=== PATIENT | female | born 1940 | race Caucasian/White ===

== ENCOUNTER 2016-10-23 13:58 | Inpatient (IN) | payer MEDICARE, BC ==
--- NOTE | 2016-10-23 14:14 | EDM.PDOC ---
<Gena Echevarira - Last Filed: 10/23/16 16:19> ED HPI HEADACHE COMPLAINT - General Chief Complaint: Abdominal Pain Stated Complaint: [id number] BAD STOMACH Time Seen by Provider: 10/23/16 14:20 - History of Present Illness INITIAL COMMENTS - FREE TEXT/NARRATIVE: Patient presents to the ER with c/o sob and epigastric pain. She states she had a coughing spell yesterday and her stomach began to hurt. She denies any recent illness, fever or chills, N/V/D. She admits to having irritable bowel syndrome and several other medical problems. Sats on room air are <90%. She denies chest pain at this time. Patient states she had a headache yesterday, but does not today. Symptom Onset Date: 10/22/16 Timing/Duration: Reports: gradual onset Associated Symptoms: Reports: denies other symptoms - Related Data Allergies/ADRs: Allergies Allergy/AdvReac Type Severity Reaction Status Date / Time etodolac [Etodolac] Allergy Hives Verified 10/23/16 14:27 nadolol Allergy Rash Verified 10/23/16 14:27 niacin Allergy Rash Verified 10/23/16 14:27 spironolactone Allergy Fatigue Verified 10/23/16 14:27 Home Meds: Home Meds Fish Oil/[place]-3 Fatty Acids [Fish Oil] 1,000 each PO BID 10/01/13 [History] Glimepiride [Amaryl] 8 mg PO DAILY 10/01/13 [History] Hydrochlorothiazide 25 mg PO DAILY 10/01/13 [History] Hydrocodone/Acetaminophen [[place] 10-325] 1 tab PO Q4H PRN 10/01/13 [History] Isosorbide Mononitrate [Imdur] 60 mg PO DAILY 10/01/13 [History] Lisinopril [Lisinopril] 10 mg PO DAILY 10/01/13 [History] Magnesium Oxide [Mag-Oxide] 250 mg PO BID 10/01/13 [History] Metoprolol Succinate [Toprol XL 100mg] 100 mg PO BID 10/01/13 [History] Multivitamin [Multivitamins] 1 each PO DAILY 10/01/13 [History] Nitroglycerin [Nitrostat] 0.4 mg SL ASDIRECTED PRN 10/01/13 [History] Omeprazole [Prilosec] 20 mg PO BID 10/01/13 [History] Potassium Chloride 20 meq PO BID 10/01/13 [History] Warfarin Sodium [Warfarin Sodium] 5 mg PO DAILY 10/01/13 [History] atorvaSTATin [Lipitor] 40 mg PO BEDTIME 10/01/13 [History] metFORMIN [Glucophage] 500 mg PO BID 10/01/13 [History] Aspirin [Ecotrin] 81 mg PO DAILY 10/23/16 [History] Calcium Carbonate [Calcium] 600 mg PO DAILY 10/23/16 [History] Calcium Carbonate [Tums] 500 mg PO ASDIRECTED PRN 10/23/16 [History] Ergocalciferol (Vitamin D2) [Vitamin D] 400 unit PO DAILY 10/23/16 [History] Loperamide [Imodium] 1 tab PO ASDIRECTED PRN 10/23/16 [History] amLODIPine [Norvasc] 10 mg PO DAILY 10/23/16 [History] ED ROS GENERAL - Review of Systems Review Of Systems: See Below Constitutional: Reports: no symptoms HEENT: Reports: No symptoms Respiratory: Reports: shortness of breath, cough Endocrine: Reports: no symptoms GI/Abdominal: Reports: Abdominal pain : Reports: no symptoms Musculoskeletal: Reports: no symptoms Skin: Reports: no symptoms Neurological: Reports: no symptoms Psychiatric: Reports: No symptoms Hematologic/Lymphatic: Reports: no symptoms Immunologic: Reports: no symptoms - Physical Exam Exam: See Below Exam Limited By: No limitations General Appearance: alert, WD/WN, no apparent distress Eye Exam: bilateral eye: normal inspection Ears: normal external exam, normal canal, hearing grossly normal Nose: normal inspection, normal mucosa, no blood Throat/Mouth: Normal inspection, Normal lips, Normal teeth, Normal gums, Normal oropharynx, Normal voice, No airway compromise Head Exam: atraumatic, normocephalic Neck: normal inspection, supple, non-tender, full range of motion Respiratory/Chest: no accessory muscle use, chest non-tender, decreased breath sounds, crackles Cardiovascular: normal peripheral pulses, regular rate, rhythm, no edema, no gallop, no JVD, no murmur, no rub GI/Abdominal: normal bowel sounds, soft, non tender, no organomegaly, no distention, no abnormal bruit, no mass (Female) Exam: Deferred Rectal (Female) Exam: Deferred Neuro Exam (Abbreviated): alert, oriented, CN II-XII intact, normal cognition, normal gait, normal reflexes, no motor/sensory deficits Back Exam: normal inspection, full range of motion, NT Extremities: normal inspection, normal range of motion, non-tender, no pedal edema, normal capillary refill Psychiatric: normal affect, normal mood Skin Exam: Warm, Dry, Intact, Normal color, No rash EKG INTERPRETATION EKG Date: 10/23/16 Time: 15:21 Rhythm: other (PACED) Course - Vital Signs Last Recorded V/S: Last Vital Signs Temp 36.6 C 10/23/16 14:15 Pulse 65 10/23/16 15:55 Resp 20 10/23/16 14:48 BP 129/41 L 10/23/16 14:48 Pulse Ox 89 L 10/23/16 14:48 - Orders/Labs/Meds Orders: Active Orders 24 hr Category Date Time Status EKG Documentation Completion [RC] STAT Care 10/23/16 14:44 Active Oxygen Therapy, ED [RC] ASDIRECTED Care 10/23/16 14:45 Active RT Aerosol Therapy [RC] ASDIRECTED Care 10/23/16 15:46 Active Chest 2V [CR] Urgent Exams 10/23/16 14:42 Taken CULTURE BLOOD [BC] Stat Lab 10/23/16 16:00 Received CULTURE BLOOD [BC] Stat Lab 10/23/16 16:02 Results INR,PT,PROTHROMBIN TIME [COAG] Stat Lab 10/23/16 14:55 Received TSH ULTRASENSITIVE [CHEM] Stat Lab 10/23/16 14:55 Received Levofloxacin/Dextrose 5%-Water [Levaquin in D5W 500 MG/ Med 10/23/16 15:56 Active 100 ML] 500 mg Premix Bag 1 bag IV ONETIME Blood Culture x2 Reflex Set [OM.PC] Stat Oth 10/23/16 15:46 Ordered Medication Orders Levofloxacin/Dextrose 500 mg/ (Premix) 100 mls @ 100 mls/hr IV ONETIME ONE Stop: 10/23/16 16:55 Last Admin: 10/23/16 16:22 Dose: 100 mls/hr Labs: Laboratory Tests 10/23/16 10/23/16 10/23/16 Range/Units 14:55 14:55 14:55 WBC 10.0 (5.0-10.0) 10^3/uL RBC 3.41 L (4.2-5.4) 10^6/uL Hgb 9.3 L (12.0-16.0) g/dL Hct 29.8 L (37.0-47.0) % MCV 87.4 (80-100) fL MCH 27.3 (27.0-34.0) pg MCHC 31.2 L (33.0-35.0) g/dL Plt Count 217 (150-450) 10^3/uL Neut % (Auto) 91.7 H (42.2-75.2) % Lymph % (Auto) 2.2 L (20.5-50.1) % [place] % (Auto) 5.8 (2-8) % Eos % (Auto) 0.0 L (1.0-3.0) % Baso % (Auto) 0.3 (0.0-1.0) % Sodium 136 (135-145) mmol/L Potassium 3.6 (3.6-5.0) mmol/L Chloride 103 (101-111) mmol/L Carbon Dioxide 23.0 (21.0-31.0) mmol/L Anion Gap 13.6 BUN 13 (7-18) mg/dL Creatinine 0.9 (0.6-1.3) mg/dL Est Cr Clr Drug Dosing 47.36 mL/min Estimated GFR (MDRD) > 60 BUN/Creatinine Ratio 14.44 Glucose 215 H (74-105) mg/dL Calcium 8.6 (8.4-10.2) mg/dl Magnesium 1.6 L (1.8-2.5) mg/dL Total Bilirubin 0.7 (0.2-1.0) mg/dL AST 28 (10-42) IU/L ALT 19 (10-60) IU/L Alkaline Phosphatase 49 (42-121) IU/L Troponin I < 0.02 (0.00-0.02) ng/ml B-Natriuretic Peptide 868 H (0-100) pg/ml Total Protein 7.6 (6.7-8.2) g/dl Albumin 3.4 (3.2-5.5) g/dl Globulin 4.2 Albumin/Globulin Ratio 0.81 Amylase 44 (28-100) U/L Lipase 19 L (22-51) U/L Meds: Medications Generic Name Dose Route Start Last Admin Trade Name Freq PRN Reason Stop Dose Admin Levofloxacin/Dextrose 500 mg/ 100 mls @ 100 mls/hr 10/23/16 15:56 10/23/16 16 :22 Premix IV 10/23/16 16:55 100 mls/hr ONETIME ONE Administration Discontinued Medications Generic Name Dose Route Start Last Admin Trade Name Freq PRN Reason Stop Dose Admin Albuterol/Ipratropium 3 ml 10/23/16 15:46 10/23/16 16:00 Duoneb 3.0-0.5 Mg/3 Ml NEB 10/23/16 15:47 3 ml ONETIME ONE Administration - Radiology Interpretation Free Text/Narrative:: CXR: Atelectasis or pneumonia. See Rad report. Departure - Departure Time of Disposition: 16:14 (Admit to [facility]) Disposition: Admitted As Inpatient 68 Condition: serious Clinical Impression: COPD with acute exacerbation, Hypoxia, Pulmonary nodule Pneumonia Qualifiers: Pneumonia type: due to unspecified organism Laterality: left Lung location: unspecified part of lung Qualified Code(s): J18.9 - Pneumonia, unspecified organism Anemia Qualifiers: Anemia type: unspecified type Qualified Code(s): D64.9 - Anemia, unspecified Forms: ED Department Discharge - My Orders Last 24 Hours: My Active Orders 10/23/16 14:55 INR,PT,PROTHROMBIN TIME [COAG] Stat TSH ULTRASENSITIVE [CHEM] Stat - Assessment/Plan Last 24 Hours: My Active Orders 10/23/16 14:55 INR,PT,PROTHROMBIN TIME [COAG] Stat TSH ULTRASENSITIVE [CHEM] Stat <Cornelio Saldana - Last Filed: 10/23/16 16:32> ED HPI HEADACHE COMPLAINT - General Source of Information: Reports: Patient, Old records, RN, RN notes reviewed History Limitations: Reports: No limitations - History of Present Illness Severity: Reports: moderate Past Medical History HEENT History: Reports: Impaired vision Cardiovascular History: Reports: Afib, Arrhythmia, CAD, Hypertension, Pacemaker , PTCA, Stents Respiratory History: Reports: COPD Endocrine/Metabolic History: Reports: Diabetes, type II Social & Family History - Family History Family Medical History: Noncontributory - Tobacco Use Smoking Status *Q: Former Smoker Tobacco Use Within Last Twelve Months: Cigarettes Years of Tobacco use: 20 Second Hand Smoke Exposure: No - Living Situation & Occupation Living situation: Reports: alone Occupation: employed ED ROS GENERAL - Review of Systems Review Of Systems: ROS reveals no pertinent complaints other than HPI. - Physical Exam Exam: See Below EKG INTERPRETATION Comparison: NA - no prior EKG Course - Vital Signs Last Recorded V/S: Last Vital Signs Temp 36.6 C 10/23/16 14:15 Pulse 65 10/23/16 15:55 Resp 20 10/23/16 14:48 BP 129/41 L 10/23/16 14:48 Pulse Ox 89 L 10/23/16 14:48 - Orders/Labs/Meds Orders: Active Orders 24 hr Category Date Time Status EKG Documentation Completion [RC] STAT Care 10/23/16 14:44 Active Oxygen Therapy, ED [RC] ASDIRECTED Care 10/23/16 14:45 Active RT Aerosol Therapy [RC] ASDIRECTED Care 10/23/16 15:46 Active Chest 2V [CR] Urgent Exams 10/23/16 14:42 Taken CULTURE BLOOD [BC] Stat Lab 10/23/16 16:00 Received CULTURE BLOOD [BC] Stat Lab 10/23/16 16:02 Results INR,PT,PROTHROMBIN TIME [COAG] Stat Lab 10/23/16 14:55 Received TSH ULTRASENSITIVE [CHEM] Stat Lab 10/23/16 14:55 Received Levofloxacin/Dextrose 5%-Water [Levaquin in D5W 500 MG/ Med 10/23/16 15:56 Active 100 ML] 500 mg Premix Bag 1 bag IV ONETIME Blood Culture x2 Reflex Set [OM.PC] Stat Oth 10/23/16 15:46 Ordered Medication Orders Levofloxacin/Dextrose 500 mg/ (Premix) 100 mls @ 100 mls/hr IV ONETIME ONE Stop: 10/23/16 16:55 Last Admin: 10/23/16 16:22 Dose: 100 mls/hr Labs: Laboratory Tests 10/23/16 10/23/16 10/23/16 Range/Units 14:55 14:55 14:55 WBC 10.0 (5.0-10.0) 10^3/uL RBC 3.41 L (4.2-5.4) 10^6/uL Hgb 9.3 L (12.0-16.0) g/dL Hct 29.8 L (37.0-47.0) % MCV 87.4 (80-100) fL MCH 27.3 (27.0-34.0) pg MCHC 31.2 L (33.0-35.0) g/dL Plt Count 217 (150-450) 10^3/uL Neut % (Auto) 91.7 H (42.2-75.2) % Lymph % (Auto) 2.2 L (20.5-50.1) % [place] % (Auto) 5.8 (2-8) % Eos % (Auto) 0.0 L (1.0-3.0) % Baso % (Auto) 0.3 (0.0-1.0) % Sodium 136 (135-145) mmol/L Potassium 3.6 (3.6-5.0) mmol/L Chloride 103 (101-111) mmol/L Carbon Dioxide 23.0 (21.0-31.0) mmol/L Anion Gap 13.6 BUN 13 (7-18) mg/dL Creatinine 0.9 (0.6-1.3) mg/dL Est Cr Clr Drug Dosing 47.36 mL/min Estimated GFR (MDRD) > 60 BUN/Creatinine Ratio 14.44 Glucose 215 H (74-105) mg/dL Calcium 8.6 (8.4-10.2) mg/dl Magnesium 1.6 L (1.8-2.5) mg/dL Total Bilirubin 0.7 (0.2-1.0) mg/dL AST 28 (10-42) IU/L ALT 19 (10-60) IU/L Alkaline Phosphatase 49 (42-121) IU/L Troponin I < 0.02 (0.00-0.02) ng/ml B-Natriuretic Peptide 868 H (0-100) pg/ml Total Protein 7.6 (6.7-8.2) g/dl Albumin 3.4 (3.2-5.5) g/dl Globulin 4.2 Albumin/Globulin Ratio 0.81 Amylase 44 (28-100) U/L Lipase 19 L (22-51) U/L Meds: Medications Generic Name Dose Route Start Last Admin Trade Name Freq PRN Reason Stop Dose Admin Levofloxacin/Dextrose 500 mg/ 100 mls @ 100 mls/hr 10/23/16 15:56 10/23/16 16 :22 Premix IV 10/23/16 16:55 100 mls/hr ONETIME ONE Administration Discontinued Medications Generic Name Dose Route Start Last Admin Trade Name Bebeto PRN Reason Stop Dose Admin Albuterol/Ipratropium 3 ml 10/23/16 15:46 10/23/16 16:00 Duoneb 3.0-0.5 Mg/3 Ml NEB 10/23/16 15:47 3 ml ONETIME ONE Administration - Re-Assessments/Exams Free Text/Narrative Re-Assessment/Exam: 10/23/16 16:17 FOR THIS ENCOUNTER THE PATIENT WAS SEEN IN CONJUNCTION WITH [facility] STUDENT GENA ECHEVARRIA. ALL PATIENT CARE AND/OR PROCEDURE(S), DIAGNOSTIC ORDERS, MEDICATION(S) AND TREATMENT ORDERS, DISPOSITION ORDERS/PLANNING, AND DISCHARGE/FOLLOW UP INSTRUCTIONS WERE UNDER MY DIRECT SUPERVISION. gbd - My Orders Last 24 Hours: My Active Orders 10/23/16 14:55 INR,PT,PROTHROMBIN TIME [COAG] Stat TSH ULTRASENSITIVE [CHEM] Stat - Assessment/Plan Last 24 Hours: My Active Orders 10/23/16 14:55 INR,PT,PROTHROMBIN TIME [COAG] Stat TSH ULTRASENSITIVE [CHEM] Stat
[2016-10-23 15:20] LABS: CHLORIDE,CL 103 mmol/L (101-111); SODIUM,NA 136 mmol/L (135-145)
[2016-10-23] MEDS ORDERED: Albuterol/Ipratropium 3.0-0.5 MG/3 ML Neb Soln NEB ONE (15:46)
[2016-10-23] MEDS ORDERED: Levofloxacin/Dextrose 5%-Water 500 MG in Premix Bag 1 BAG IV ONE (15:56)
[2016-10-23] MEDS ORDERED: Ondansetron 4 MG/2 ML SDV IVPUSH PRN (17:34)
[2016-10-23] MEDS ORDERED: Magnesium Sulfate/Water 2 GM in Premix Bag 1 BAG IV ONE (17:49)
--- NOTE | 2016-10-23 17:52 | PCM.HP ---
H&P History of Present Illness - General Date of Service: 10/23/16 Admit Problem/Dx: Admission Diagnosis/Problem Admission Diagnosis/Problem Pneumonia Source of Information: Patient History Limitations: Reports: No limitations - History of Present Illness Initial Comments - Free Text/Narative: Patient presents to the ER with c/o cough and epigastric pain with coughing. She states she started having coughing spell yesterday. she admits being fatigued and tired since yesterday and she had generalized weakness. She denies any recent illness shortness of breath, chest pain, fever or chills, N/V/D, blood in stool or black stool, urinary sx. She admits to having irritable bowel syndrome and several other medical problems. In ER she Sats on room air are <90% .. Patient states she had a headache yesterday, but does not today. she denies hx of thyrid disease or CHF. last Echo was many years ago according to hear. 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 Her CXR showed infiltrate on left side, possible left side nodule vs nipple. WBC nl but with left shift. BNP 868. Trop 0.02. TSH 0.29. Glucose 215. mag 1.6. Cr 0.9. she was given Duoneb and Levaquin in ER Abdomen Pain Score (Numeric/FACES): 4 - Related Data Allergies/Adverse Reactions: Allergies Allergy/AdvReac Type Severity Reaction Status Date / Time etodolac [Etodolac] Allergy Hives Verified 10/23/16 17:06 nadolol Allergy Rash Verified 10/23/16 17:06 niacin Allergy Rash Verified 10/23/16 17:06 spironolactone Allergy Fatigue Verified 10/23/16 17:06 Home Medications: Home Meds Fish Oil/[place]-3 Fatty Acids [Fish Oil] 1,000 each PO BID 10/01/13 [History] Glimepiride [Amaryl] 8 mg PO DAILY 10/01/13 [History] Hydrochlorothiazide 25 mg PO DAILY 10/01/13 [History] Hydrocodone/Acetaminophen [[place] 10-325] 1 tab PO Q4H PRN 10/01/13 [History] Isosorbide Mononitrate [Imdur] 60 mg PO DAILY 10/01/13 [History] Lisinopril [Lisinopril] 10 mg PO DAILY 10/01/13 [History] Magnesium Oxide [Mag-Oxide] 250 mg PO BID 10/01/13 [History] Metoprolol Succinate [Toprol XL 100mg] 100 mg PO BID 10/01/13 [History] Multivitamin [Multivitamins] 1 each PO DAILY 10/01/13 [History] Nitroglycerin [Nitrostat] 0.4 mg SL ASDIRECTED PRN 10/01/13 [History] Omeprazole [Prilosec] 20 mg PO BID 10/01/13 [History] Potassium Chloride 20 meq PO BID 10/01/13 [History] Warfarin Sodium [Warfarin Sodium] 5 mg PO DAILY 10/01/13 [History] atorvaSTATin [Lipitor] 40 mg PO BEDTIME 10/01/13 [History] metFORMIN [Glucophage] 500 mg PO BID 10/01/13 [History] Aspirin [Ecotrin] 81 mg PO DAILY 10/23/16 [History] Calcium Carbonate [Calcium] 600 mg PO DAILY 10/23/16 [History] Calcium Carbonate [Tums] 500 mg PO ASDIRECTED PRN 10/23/16 [History] Ergocalciferol (Vitamin D2) [Vitamin D] 400 unit PO DAILY 10/23/16 [History] Loperamide [Imodium] 1 tab PO ASDIRECTED PRN 10/23/16 [History] amLODIPine [Norvasc] 10 mg PO DAILY 10/23/16 [History] Past Medical History HEENT History: Reports: Impaired vision Other HEENT History: wears glasses Cardiovascular History: Reports: Afib, Arrhythmia, CAD, Hypertension, Pacemaker , PTCA, Stents Respiratory History: Reports: COPD Gastrointestinal History: Reports: GERD, Irritable bowel syndrome Genitourinary History: Reports: None Musculoskeletal History: Reports: None Neurological History: Reports: None Psychiatric History: Reports: None Endocrine/Metabolic History: Reports: Diabetes, type II Hematologic History: Reports: None Immunologic History: Reports: None Oncologic (Cancer) History: Reports: Bladder Dermatologic History: Reports: None - Infectious Disease History Infectious Disease History: Reports: Chicken pox, Measles - Past Surgical History Cardiovascular Surgical History: Reports: Pacer Social & Family History - Family History Family Medical History: Noncontributory - Tobacco Use Smoking Status *Q: Former Smoker Years of Tobacco use: 20 Packs/Tins Daily: 0.5 Second Hand Smoke Exposure: No - Caffeine Use Caffeine Use: Reports: Coffee - Recreational Drug Use Recreational Drug Use: No - Living Situation & Occupation Living situation: Reports: alone Occupation: employed H&P Review of Systems - Review of Systems: Review Of Systems: See Below General: Denies: decreased appetite HEENT: Reports: no symptoms Neurological: Reports: no symptoms. Denies: seizure, syncope, tremors, trouble speaking, weakness, change in speech, gait disturbance Exam - Exam Exam: See Below - Vital Signs Vital Signs: Last Vital Signs Temp 37.1 C 10/23/16 16:28 Pulse 62 10/23/16 16:28 Resp 18 10/23/16 16:28 BP 103/70 10/23/16 16:28 Pulse Ox 92 L 10/23/16 16:28 Weight: 74.843 kg - Exam General: alert, oriented, cooperative. No: moderate distress, severe distress HEENT: Conjunctiva clear, EACs clear, EOMI, Hearing intact, Mucosa moist & pink , Nares patent, Normal nasal septum, Posterior pharynx clear, Pupils equal, Pupils reactive Neck: supple, trachea midline. No: JVD Lungs: Decreased breath sounds (but fair air exchange), Rhonchi. No: Rales, Rub , Stridor, Wheezing Cardiovascular: regular rate, regular rhythm Abdomen: soft. No: organomegaly, distention, guarding, rigidity, tenderness Back Exam: normal inspection Extremities: normal pulses, edema (trace bilaterally in LE). No: clubbing, cyanosis, calf tenderness Skin: warm, dry, intact Neurological: cranial nerves intact, reflexes equal bilateral Neuro Extensive - Mental Status: alert, oriented x3, normal mood/affect, normal cognition, memory intact Neuro Extensive - Motor, Sensory, Reflexes: CN II-XII intact, normal gait - Patient Data Result Diagrams: 10/23/16 14:55 10/23/16 14:55 *Q Meaningful Use (ADM) - VTE *Q VTE Criteria *Q: - Stroke *Q Stroke Criteria *Q: - AMI *Q AMI Criteria *Q: - Problem List (1) Hypomagnesemia SNOMED Code(s): 337573969 ICD Code: E83.42 - HYPOMAGNESEMIA Status: Acute Current Visit: Yes (2) Low TSH level SNOMED Code(s): 715894415 ICD Code: R94.6 - ABNORMAL RESULTS OF THYROID FUNCTION STUDIES Status: Acute Current Visit: Yes (3) Congestive heart failure SNOMED Code(s): 81193570 ICD Code: I50.9 - HEART FAILURE, UNSPECIFIED Status: Acute Current Visit : Yes (4) Anemia SNOMED Code(s): 196365621 ICD Code: D64.9 - ANEMIA, UNSPECIFIED Status: Acute Current Visit: Yes Qualifiers: Anemia type: unspecified type Qualified Code(s): D64.9 - Anemia, unspecified (5) COPD with acute exacerbation SNOMED Code(s): 912481687 ICD Code: J44.1 - CHRONIC OBSTRUCTIVE PULMONARY DISEASE W (ACUTE) EXACERBATION Status: Acute Current Visit: Yes (6) Hypoxia SNOMED Code(s): 689214787, 042347093 ICD Code: R09.02 - HYPOXEMIA Status: Acute Current Visit: Yes (7) Pneumonia SNOMED Code(s): 686037357 ICD Code: J18.9 - PNEUMONIA, UNSPECIFIED ORGANISM Status: Acute Current Visit: Yes Qualifiers: Pneumonia type: due to unspecified organism Laterality: left Lung location: unspecified part of lung Qualified Code(s): J18.9 - Pneumonia, unspecified organism (8) Pulmonary nodule SNOMED Code(s): 838921359 ICD Code: R91.1 - SOLITARY PULMONARY NODULE Status: Acute Current Visit: Yes Problem List Initiated/Reviewed/Updated: Yes Orders Last 24hrs: Active Orders 24 hr Category Date Time Status Patient Status [ADT] Routine ADT 10/23/16 17:34 Active Bedrest Bathroom Privileges [RC] ASDIRECTED Care 10/23/16 17:34 Active Diabetes Education [RC] Click To Edit Care 10/23/16 17:38 Active Height and Weight [RC] DAILY Care 10/23/16 17:34 Active Intake and Output [RC] Q6H Care 10/23/16 17:35 Active Oxygen Therapy [RC] PRN Care 10/23/16 17:34 Active RT Aerosol Therapy [RC] ASDIRECTED Care 10/23/16 17:40 Active VTE/DVT Education [RC] PER UNIT ROUTINE Care 10/23/16 17:34 Active Vital Signs [RC] Q4H Care 10/23/16 17:34 Active CXR [Chest 2V] [CR] Routine Exams 10/25/16 06:00 Ordered Echo Comp wo Cont [US] Routine Exams 10/25/16 06:00 Ordered BASIC METABOLIC PANEL,BMP [CHEM] AM Lab 10/24/16 05:11 Ordered CBC WITH AUTO DIFF [HEME] AM Lab 10/24/16 05:11 Ordered CULTURE SPUTUM + SMEAR [RM] Stat Lab 10/23/16 17:34 Uncollected FREE T3 [REF] Routine Lab 10/23/16 14:55 Received FREE T4 [REF] Routine Lab 10/23/16 14:55 Received INR,PT,PROTHROMBIN TIME [COAG] Timed Lab 10/25/16 05:00 Ordered MAGNESIUM [CHEM] AM Lab 10/24/16 05:11 Ordered TROPONIN I [CHEM] AM Lab 10/24/16 05:11 Ordered Acetaminophen/HYDROcodone [[place] 325-10 MG] Med 10/23/16 17:34 Ordered 1 tab PO Q4H PRN Albuterol [Proventil Neb Soln] Med 10/23/16 18:00 Ordered 2.5 mg NEB Q6HRRT Azithromycin [Zithromax] 500 mg Med 10/23/16 18:30 Active Sodium Chloride 0.9% [Normal Saline] 250 ml IV Q24H Ondansetron [Zofran] Med 10/23/16 17:34 Ordered 4 mg IVPUSH Q6H PRN Zolpidem [Ambien] Med 10/23/16 17:34 Ordered 5 mg PO BEDTIME PRN cefTRIAXone [Rocephin] 1 gm Med 10/23/16 17:30 Active Sodium Chloride 0.9% [Normal Saline] 100 ml IV Q24H Glucose Management Sub Q Reflex [OM.PC] Click To Edit Oth 10/23/16 17:34 Ordered Resuscitation Status Routine Resus Stat 10/23/16 17:34 Ordered Medication Orders Acetaminophen/Hydrocodone Bitart ([place] 325-10 Mg) 1 tab PO Q4H PRN PRN Reason: Pain (moderate 4-6) Albuterol (Proventil Neb Soln) 2.5 mg NEB Q6HRRT TRISH Azithromycin 500 mg/ Sodium (Chloride) 250 mls @ 250 mls/hr IV Q24H TRISH Ceftriaxone Sodium 1 gm/ (Sodium Chloride) 100 mls @ 200 mls/hr IV Q24H TRISH Ondansetron HCl (Zofran) 4 mg IVPUSH Q6H PRN PRN Reason: Nausea/Vomiting Zolpidem Tartrate (Ambien) 5 mg PO BEDTIME PRN PRN Reason: Sleep Assessment/Plan Comment:: Community acquired pneumonia Rocephin and Azithromycin Flutter valve Reactive airway disease Possible COPD with exacerbation She used to be on amiodarone in the past Abx as above Albuterol neb q6h I advised her to follow up with plan checker as soon as possible after she gets out of hospital Hypoxia Sat is dropping to 83% possible due to PNA vs COPD vs CHF O2 by nasal cannula to keep sat > 94 while awake and >88 while asleep Give Lasix 60 mg now CHF, unspecified Give lasix 60 mg once now then 20 mg after 8 horus Give oral K-dur Continue home cardiovascular medications Echo cardiogram Atrial Fibrillation/Atrial flutter patient states that she has history of paroxysmal a-fib/flutter Continue with Toprol Telemetry Warfarin Anemia, unknow reason Will do iron study If still hypoxic then will consider blood transfer Left lung lesion seen on x-ray Could be nodule or nipple Repeat CXR on Tuesday if still there then consider doing CT of chest Hx of CAD status post stent not symptomatic continue with aspirin Low TSH without history of thyroid disease Check FT3, FT4 Diabetes mellitus without complications Last Hgb A1c was 7.2 on 08/19/16 Resume oral hypoglycemic drugs SSI Hypomagnesemia replace by IV and orally Recheck in am Hx of GERD continue with omeprazole No need for furtehr DVT prophylaxis as she is on warfarin and INR is therapeutic She wants to be DNR for code status
[2016-10-23] MEDS ORDERED: Furosemide 40 MG/4 ML VIAL IVPUSH ONE (18:05)
[2016-10-23] MEDS ORDERED: Nitroglycerin 0.4 MG Tab.SL SL PRN (18:06)
[2016-10-23] MEDS ORDERED: Acetaminophen/HYDROcodone 325-10 MG Tab PO PRN (18:06)
[2016-10-23] MEDS ORDERED: Loperamide 2 MG Cap PO PRN (18:06)
[2016-10-23] MEDS ORDERED: Potassium Chloride 10 MEQ Tab.ER PO ONE (18:10)
[2016-10-23] MEDS ORDERED: Calcium Carbonate 500 MG Tab.Chew PO PRN (18:31)
[2016-10-23] MEDS: Omeprazole 20 MG Cap.CR PO SCH (18:42)
[2016-10-23] MEDS: metFORMIN 500 MG Tab PO SCH (18:42)
[2016-10-23] MEDS: Sodium Chloride 0.9% 10 ML Syringe FLUSH PRN (18:46)
[2016-10-23] MEDS: Acetaminophen/HYDROcodone 325-10 MG Tab PO PRN (19:14)
[2016-10-23] MEDS ORDERED: Insulin Aspart 100 Units/ML 3 ML Pen SUBCUT SCH (21:00)
[2016-10-23] MEDS: Zolpidem 5 MG Tab PO PRN (21:50)
[2016-10-23] MEDS: Potassium Chloride 10 MEQ Tab.ER PO SCH (21:50)
[2016-10-23] MEDS: atorvaSTATin 20 MG Tab PO SCH (21:51)
[2016-10-23] MEDS: Metoprolol Succinate 50 MG Tab.ER PO SCH (21:51)
[2016-10-23] MEDS: cefTRIAXone 1 GM in Sodium Chloride 0.9% 100 ML IV SCH (21:54)
[2016-10-23] MEDS: Insulin Aspart 100 Units/ML 3 ML Pen SUBCUT SCH (22:28)
[2016-10-23] MEDS: Azithromycin 500 MG in Sodium Chloride 0.9% 250 ML IV SCH (22:38)
[2016-10-23] MEDS: Albuterol 0.083% 2.5 MG/3 ML Neb Soln NEB SCH (23:19)
[2016-10-24] MEDS: Acetaminophen/HYDROcodone 325-10 MG Tab PO PRN ×2 (00:03→05:11)
[2016-10-24] MEDS: Albuterol 0.083% 2.5 MG/3 ML Neb Soln NEB SCH ×4 (01:47→17:55)
[2016-10-24] MEDS ORDERED: Furosemide 20 MG/2 ML VIAL IVPUSH ONE (02:00)
[2016-10-24] MEDS: Omeprazole 20 MG Cap.CR PO SCH (05:14)
[2016-10-24] MEDS ORDERED: Potassium Chloride 10 MEQ Tab.ER PO ONE (07:13)
[2016-10-24] MEDS: Insulin Aspart 100 Units/ML 3 ML Pen SUBCUT SCH ×4 (07:34→21:56)
[2016-10-24] MEDS: metFORMIN 500 MG Tab PO SCH ×2 (08:00→17:33)
[2016-10-24] MEDS: Potassium Chloride 10 MEQ Tab.ER PO SCH ×2 (08:01→17:33)
[2016-10-24] MEDS: Hydrochlorothiazide 25 MG Tab PO SCH (08:45)
[2016-10-24] MEDS: Aspirin 81 MG Tab.EC PO SCH (08:45)
[2016-10-24] MEDS: Glimepiride 2 MG Tab PO SCH (08:46)
[2016-10-24] MEDS: Calcium Carbonate/Vitamin D3 1250 MG-200 Unit Tab PO SCH (08:46)
[2016-10-24] MEDS: Lisinopril 10 MG Tab PO SCH (08:47)
[2016-10-24] MEDS: Isosorbide Mononitrate 60 MG Tab.ER PO SCH (08:47)
[2016-10-24] MEDS: amLODIPine 5 MG Tab PO SCH (08:47)
[2016-10-24] MEDS: Sodium Chloride 0.9% 10 ML Syringe FLUSH PRN (08:48)
[2016-10-24] MEDS: Metoprolol Succinate 50 MG Tab.ER PO SCH ×2 (08:48→22:07)
[2016-10-24] MEDS: Multivitamins,Therapeutic Tab PO SCH (09:03)
[2016-10-24] MEDS: Cholecalciferol (Vitamin D3) 400 Unit Tab PO SCH (09:03)
--- NOTE | 2016-10-24 10:39 | PCM.PN ---
- General Info Date of Service: 10/24/16 Admission Dx/Problem (Free Text): Admission Diagnosis/Problem Admission Diagnosis/Problem Pneumonia Subjective Update: Patient states that she is feeling better today. she is still coughing but she states that she is not as weak and wobbly as she was yesterday. she denies fever , chills, nausea, vomiting, chest pain, shortness of breath, palpitation, focal weakness - Patient Data Vitals - most recent: Last Vital Signs Temp 37.7 C 10/24/16 07:49 Pulse 63 10/24/16 08:48 Resp 20 10/24/16 07:49 BP 120/52 L 10/24/16 08:48 Pulse Ox 93 L 10/24/16 07:49 Weight - most recent: 72.121 kg I&O - last 24 hours: Intake & Output 10/23/16 10/24/16 10/24/16 22:59 06:59 14:59 Intake Total 388 434 100 Output Total 650 1700 Balance 388 -216 -1600 Lab Results last 24 hrs: Laboratory Results - last 24 hr 10/23/16 10/24/16 10/24/16 Range/Units 20:57 05:40 05:40 WBC 4.9 L (5.0-10.0) 10^3/uL RBC 3.30 L (4.2-5.4) 10^6/uL Hgb 8.9 L (12.0-16.0) g/dL Hct 28.8 L (37.0-47.0) % MCV 87.3 (80-100) fL MCH 27.0 (27.0-34.0) pg MCHC 30.9 L (33.0-35.0) g/dL Plt Count 183 (150-450) 10^3/uL Neut % (Auto) 79.3 H (42.2-75.2) % Lymph % (Auto) 8.4 L (20.5-50.1) % [place] % (Auto) 12.1 H (2-8) % Eos % (Auto) 0.0 L (1.0-3.0) % Baso % (Auto) 0.2 (0.0-1.0) % Sodium 139 (135-145) mmol/L Potassium 2.9 L (3.6-5.0) mmol/L Chloride 102 (101-111) mmol/L Carbon Dioxide 27.0 (21.0-31.0) mmol/L Anion Gap 12.9 BUN 16 (7-18) mg/dL Creatinine 1.0 (0.6-1.3) mg/dL Est Cr Clr Drug Dosing 42.62 mL/min Estimated GFR (MDRD) 54 Glucose 64 L (74-105) mg/dL POC Glucose 84 (83-110) mg/dl Calcium 8.4 (8.4-10.2) mg/dl Magnesium 2.1 (1.8-2.5) mg/dL Troponin I 0.04 H* (0.00-0.02) ng/ml B-Natriuretic Peptide (0-100) pg/ml 10/24/16 10/24/16 Range/Units 05:40 07:30 WBC (5.0-10.0) 10^3/uL RBC (4.2-5.4) 10^6/uL Hgb (12.0-16.0) g/dL Hct (37.0-47.0) % MCV (80-100) fL MCH (27.0-34.0) pg MCHC (33.0-35.0) g/dL Plt Count (150-450) 10^3/uL Neut % (Auto) (42.2-75.2) % Lymph % (Auto) (20.5-50.1) % [place] % (Auto) (2-8) % Eos % (Auto) (1.0-3.0) % Baso % (Auto) (0.0-1.0) % Sodium (135-145) mmol/L Potassium (3.6-5.0) mmol/L Chloride (101-111) mmol/L Carbon Dioxide (21.0-31.0) mmol/L Anion Gap BUN (7-18) mg/dL Creatinine (0.6-1.3) mg/dL Est Cr Clr Drug Dosing mL/min Estimated GFR (MDRD) Glucose (74-105) mg/dL POC Glucose 99 (83-110) mg/dl Calcium (8.4-10.2) mg/dl Magnesium (1.8-2.5) mg/dL Troponin I (0.00-0.02) ng/ml B-Natriuretic Peptide 822 H (0-100) pg/ml Med Orders - Current: Current Medications Acetaminophen/Hydrocodone Bitart ([place] 325-10 Mg) 1 tab PO Q4H PRN PRN Reason: Pain (moderate 4-6) Last Admin: 10/24/16 05:11 Dose: 1 tab Albuterol (Proventil Neb Soln) 2.5 mg NEB Q6HRRT [facility] Last Admin: 10/24/16 07:38 Dose: 2.5 mg Amlodipine Besylate (Norvasc) 10 mg PO DAILY [facility] Last Admin: 10/24/16 08:47 Dose: 10 mg Aspirin (Halfprin) 81 mg PO DAILY [facility] Last Admin: 10/24/16 08:45 Dose: 81 mg Atorvastatin Calcium (Lipitor) 40 mg PO BEDTIME [facility] Last Admin: 10/23/16 21:51 Dose: 40 mg Calcium Carbonate (Calcium Carbonate/Vitamin D 1250 Mg-200 Unit) 1 tab PO DAILY [facility] Last Admin: 10/24/16 08:46 Dose: 1 tab Calcium Carbonate/Glycine (Tums) 500 mg PO ASDIRECTED PRN PRN Reason: Abdominal Pain Cholecalciferol (Vitamin D3) 400 units PO DAILY [facility] Last Admin: 10/24/16 09:03 Dose: 400 units Glimepiride (Amaryl) 8 mg PO DAILY [facility] Last Admin: 10/24/16 08:46 Dose: 8 mg Hydrochlorothiazide (Hydrochlorothiazide) 25 mg PO DAILY [facility] Last Admin: 10/24/16 08:45 Dose: 25 mg Azithromycin 500 mg/ Sodium (Chloride) 250 mls @ 250 mls/hr IV Q24H [facility] Last Admin: 10/23/16 22:38 Dose: 250 mls/hr Ceftriaxone Sodium 1 gm/ (Sodium Chloride) 100 mls @ 200 mls/hr IV Q24H [facility] Last Admin: 10/23/16 21:54 Dose: 200 mls/hr Insulin Aspart (Novolog) 0 unit SUBCUT QIDACANDBED [facility] PRN Reason: Protocol Last Admin: 10/24/16 07:34 Dose: Not Given Isosorbide Mononitrate (Imdur) 60 mg PO DAILY [facility] Last Admin: 10/24/16 08:47 Dose: 60 mg Lisinopril (Prinivil) 10 mg PO DAILY [facility] Last Admin: 10/24/16 08:47 Dose: 10 mg Loperamide HCl (Imodium) 2 mg PO ASDIRECTED PRN PRN Reason: Diarrhea Magnesium Oxide (Magnesium Oxide) 250 mg PO BID [facility] Last Admin: 10/24/16 08:46 Dose: 250 mg Metformin HCl (Glucophage) 500 mg PO BIDMEALS [facility] Last Admin: 10/24/16 08:00 Dose: 500 mg Metoprolol Succinate (Toprol Xl) 100 mg PO BID [facility] Last Admin: 10/24/16 08:48 Dose: 100 mg Multivitamins (Thera) 1 each PO DAILY [facility] Last Admin: 10/24/16 09:03 Dose: 1 each Nitroglycerin (Nitrostat) 0.4 mg SL ASDIRECTED PRN PRN Reason: Chest Pain Non-Formulary Medication (Fish Oil/Sedan-3 Fatty Acids [Fish Oil]) 1,000 each PO BID [facility] Non-Formulary Medication (Melatonin [Melatonin]) 3 mg PO BEDTIME [facility] Omeprazole (Omeprazole) 20 mg PO BIDAC [facility] Last Admin: 10/24/16 05:14 Dose: 20 mg Ondansetron HCl (Zofran) 4 mg IVPUSH Q6H PRN PRN Reason: Nausea/Vomiting Potassium Chloride (Klor-Con 10) 20 meq PO BIDMEALS [facility] Last Admin: 10/24/16 08:01 Dose: 20 meq Sodium Chloride (Saline Flush) 10 ml FLUSH ASDIRECTED PRN PRN Reason: Keep Vein Open Last Admin: 10/24/16 08:48 Dose: 10 ml Warfarin Sodium (Coumadin) 5 mg PO MoFr@1400 [facility] Warfarin Sodium (Coumadin) 2.5 mg PO SuTuWeThSa@1400 [facility] Zolpidem Tartrate (Ambien) 5 mg PO BEDTIME PRN PRN Reason: Sleep Last Admin: 10/23/16 21:50 Dose: 5 mg Discontinued Medications Acetaminophen/Hydrocodone Bitart ([place] 325-10 Mg) 1 tab PO Q4H PRN PRN Reason: Pain Albuterol/Ipratropium (Duoneb 3.0-0.5 Mg/3 Ml) 3 ml NEB ONETIME ONE Stop: 10/23/16 15:47 Last Admin: 10/23/16 16:00 Dose: 3 ml Furosemide (Lasix) 60 mg IVPUSH NOW ONE Stop: 10/23/16 18:06 Last Admin: 10/23/16 18:44 Dose: 60 mg Furosemide (Lasix) 20 mg IVPUSH ONETIME ONE Stop: 10/24/16 02:01 Last Admin: 10/24/16 01:48 Dose: 20 mg Levofloxacin/Dextrose 500 mg/ (Premix) 100 mls @ 100 mls/hr IV ONETIME ONE Stop: 10/23/16 16:55 Last Infusion: 10/23/16 17:35 Dose: Infused Magnesium Sulfate 2 gm/ Premix 50 mls @ 25 mls/hr IV ONETIME ONE Stop: 10/23/16 19:48 Last Admin: 10/23/16 18:53 Dose: 25 mls/hr Potassium Chloride (Klor-Con 10) 40 meq PO ONETIME ONE Stop: 10/23/16 18:11 Last Admin: 10/23/16 18:42 Dose: 40 meq Potassium Chloride (Klor-Con 10) 40 meq PO ONETIME ONE Stop: 10/24/16 07:14 Last Admin: 10/24/16 08:00 Dose: 40 meq - Exam General: alert, oriented, cooperative. No: no acute distress HEENT: Pupils equal, Pupils reactive, EOMI Neck: supple, trachea midline, no JVD Lungs: Clear to auscultation, Normal respiratory effort. No: Crackles, Rales, Rhonchi, Stridor, Wheezing Cardiovascular: irregular rhythm Back Exam: normal inspection Extremities: edema (trace edema in LE rob, improved from yesterday ) Skin: warm, dry, intact Neurological: no new focal deficit, normal gait, normal speech, strength equal bilateral, sensation intact, cranial nerves intact Psy/Mental Status: alert, normal affect, normal mood - Problem List & Annotations (1) Hypomagnesemia SNOMED Code(s): 983967715 Code(s): E83.42 - HYPOMAGNESEMIA Status: Acute Current Visit: Yes (2) Low TSH level SNOMED Code(s): 137809489 Code(s): R94.6 - ABNORMAL RESULTS OF THYROID FUNCTION STUDIES Status: Acute Current Visit: Yes (3) Congestive heart failure SNOMED Code(s): 42657946 Code(s): I50.9 - HEART FAILURE, UNSPECIFIED Status: Acute Current Visit: Yes (4) Anemia SNOMED Code(s): 055148431 Code(s): D64.9 - ANEMIA, UNSPECIFIED Status: Acute Current Visit: Yes Qualifiers: Anemia type: unspecified type Qualified Code(s): D64.9 - Anemia, unspecified (5) COPD with acute exacerbation SNOMED Code(s): 258154029 Code(s): J44.1 - CHRONIC OBSTRUCTIVE PULMONARY DISEASE W (ACUTE) EXACERBATION Status: Acute Current Visit: Yes (6) Hypoxia SNOMED Code(s): 244077818, 158497846 Code(s): R09.02 - HYPOXEMIA Status: Acute Current Visit: Yes (7) Pneumonia SNOMED Code(s): 564928106 Code(s): J18.9 - PNEUMONIA, UNSPECIFIED ORGANISM Status: Acute Current Visit: Yes Qualifiers: Pneumonia type: due to unspecified organism Laterality: left Lung location: unspecified part of lung Qualified Code(s): J18.9 - Pneumonia, unspecified organism (8) Pulmonary nodule SNOMED Code(s): 262013783 Code(s): R91.1 - SOLITARY PULMONARY NODULE Status: Acute Current Visit: Yes - Problem List Review Problem List Initiated/Reviewed/Updated: Yes - My Orders Last 24 Hours: My Active Orders 10/23/16 14:55 FREE T3 [REF] Routine FREE T4 [REF] Routine GLYCOSYLATED HEMOGLOBIN (HA1C) [REF] Routine 10/23/16 17:30 cefTRIAXone [Rocephin] 1 gm Sodium Chloride 0.9% [Normal Saline] 100 ml IV Q24H 10/23/16 17:34 Patient Status [ADT] Routine Bedrest Bathroom Privileges [RC] ASDIRECTED Height and Weight [RC] 06 Oxygen Therapy [RC] PRN VTE/DVT Education [RC] PER UNIT ROUTINE Vital Signs [RC] Q4H CULTURE SPUTUM + SMEAR [RM] Stat Acetaminophen/HYDROcodone [[place] 325-10 MG] 1 tab PO Q4H PRN Ondansetron [Zofran] 4 mg IVPUSH Q6H PRN Zolpidem [Ambien] 5 mg PO BEDTIME PRN Glucose Management Sub Q Reflex [OM.PC] Click To Edit Resuscitation Status Routine 10/23/16 17:35 Intake and Output [RC] Q6H 10/23/16 17:38 Diabetes Education [RC] Click To Edit 10/23/16 17:40 RT Aerosol Therapy [RC] ASDIRECTED 10/23/16 17:47 Blood Glucose Check, Bedside [RC] QIDACANDBED 10/23/16 18:00 Albuterol [Proventil Neb Soln] 2.5 mg NEB Q6HRRT 10/23/16 18:01 Flutter Valve Therapy [RT Chest Physiotherapy] [RC] ASDIRECTED 10/23/16 18:06 Loperamide [Imodium] 2 mg PO ASDIRECTED PRN Nitroglycerin [Nitrostat] 0.4 mg SL ASDIRECTED PRN 10/23/16 18:23 Telemetry Monitoring [Cardiac Monitoring] [RC] . DIRECTED 10/23/16 18:25 Sodium Chloride 0.9% [Saline Flush] 10 ml FLUSH ASDIRECTED PRN 10/23/16 18:30 Azithromycin [Zithromax] 500 mg Sodium Chloride 0.9% [Normal Saline] 250 ml IV Q24H Omeprazole 20 mg PO BIDAC metFORMIN [Glucophage] 500 mg PO BIDMEALS 10/23/16 18:31 IRON PANEL IRON/TRANSFERR/FERR [REF] Routine Calcium Carbonate [Tums] 500 mg PO ASDIRECTED PRN 10/23/16 21:00 Fish Oil/Sedan-3 Fatty Acids [Fish Oil] 1,000 each PO BID Insulin Aspart [NovoLOG] See Protocol SUBCUT QIDACANDBED Magnesium Oxide 250 mg PO BID Melatonin [Melatonin] 3 mg PO BEDTIME Metoprolol Succinate [Toprol XL] 100 mg PO BID Potassium Chloride [Klor-Con 10] 20 meq PO BIDMEALS atorvaSTATin [Lipitor] 40 mg PO BEDTIME 10/24/16 08:50 OCCULT BLOOD DIAGNOSTIC [OP] Routine 10/24/16 09:00 Aspirin [Halfprin] 81 mg PO DAILY Calcium Carbonate/Vitamin D3 [Calcium Carbonate/Vitamin D 1250 MG-200 Unit] 1 tab PO DAILY Cholecalciferol (Vitamin D3) [Vitamin D3] 400 units PO DAILY Glimepiride [Amaryl] 8 mg PO DAILY Hydrochlorothiazide 25 mg PO DAILY Isosorbide Mononitrate [Imdur] 60 mg PO DAILY Lisinopril [Prinivil] 10 mg PO DAILY Multivitamins,Therapeutic [Thera] 1 each PO DAILY amLODIPine [Norvasc] 10 mg PO DAILY 10/24/16 13:00 TROPONIN I [CHEM] Timed 10/24/16 14:00 Warfarin [Coumadin] 2.5 mg PO SuTuWeThSa@1400 10/24/16 Breakfast Consistent Carbohydrate Diet [DIET] 10/25/16 05:00 INR,PT,PROTHROMBIN TIME [COAG] Timed 10/25/16 05:11 BASIC METABOLIC PANEL,BMP [CHEM] AM CBC WITH AUTO DIFF [HEME] AM 10/25/16 06:00 CXR [Chest 2V] [CR] Routine Echo Comp wo Cont [US] Routine 10/25/16 14:00 Warfarin [Coumadin] 5 mg PO MoFr@1400 - Plan Plan:: Community acquired pneumonia Continue Rocephin and Azithromycin Continue Flutter valve Repeat CXR tomorrow Reactive airway disease Possible COPD with exacerbation She used to be on amiodarone in the past Abx as above Albuterol neb q6h I advised her to follow up with siebel consultant as soon as possible after she gets out of hospital Added Mucomyst and cepacol today Hypoxia Sat is dropping to 83% on admission, now responding to nasal oxygen possible due to PNA vs COPD vs CHF O2 by nasal cannula to keep sat > 94 while awake and >88 while asleep Received lasix Elevated Troponin On admission <0.02, this am 0.04 Most likey due to PNA on the left side Will recheck later this afternoon, and if continue to go up will call visitor information assistant CHF, unspecified Received Give Lasix 60 mg IV once upon admission, then 20 mg IV after 8 hours. she gave 2500 of urine out out up to this morning Give oral K-dur Continue home cardiovascular medications Echocardiogram tomorrow Fluid restriction of 1600/24 hrs Continue lasix 20 mg PO daily Atrial Fibrillation/Atrial flutter patient states that she has history of paroxysmal a-fib/flutter Rate is controlled Continue with Toprol Telemetry Warfarin Anemia, unknow reason It is trending downward. 9.3 on admission, today is 8.9 Will do iron study If still hypoxic then will consider blood transfer She admits having dark stool intermittently Last colonoscopy was 10 years ago and was normal She admits intermittent epigastric pain for the last 1 mot=nth I discussed with her that she needs to have colonoscopy and EGD as soon as possible after being discharged and possible during this admission if Hgb continue to drop Will do hemoccult Will change omeprazole to protonix 80 mg IV today, then 40 mg IV daily Will continue the warfarin and Aspirin due to her significant cardiovascular disease but discontinue them if acute bleeding Hupokalemia, Repalce orally Left lung lesion seen on x-ray Could be nodule or nipple Repeat CXR on Tuesday if still there then consider doing CT of chest Hx of CAD status post stent not symptomatic continue with aspirin Low TSH without history of thyroid disease Check FT3, FT4 Diabetes mellitus without complications Last Hgb A1c was 7.2 on 08/19/16 Resume oral hypoglycemic drugs SSI Hypomagnesemia Resolved replaced by IV and orally Hx of GERD Will change omeprazole to protonix 80 mg IV today, then 40 mg IV daily No need for furtehr DVT prophylaxis as she is on warfarin and INR is therapeutic She wants to be DNR for code status
[2016-10-24] MEDS ORDERED: Benzocaine/Cetylpyridinium/Menthol Lozenge MUCMEM PRN (10:44)
[2016-10-24] MEDS ORDERED: Pantoprazole 40 MG Vial IVPUSH ONE (10:58)
[2016-10-24] MEDS ORDERED: Acetaminophen 325 MG Tab PO PRN (11:32)
[2016-10-24] MEDS ORDERED: guaiFENesin 100 MG/5 ML Soln 5 ML UD Cup PO PRN (11:51)
[2016-10-24] MEDS: Furosemide 20 MG Tab PO SCH (12:19)
[2016-10-24] MEDS: Acetylcysteine 20% 200 MG/ML 30 ML Nebulizer Soln SDV INH SCH ×2 (13:23→17:59)
[2016-10-24] MEDS ORDERED: Warfarin 2.5 MG Tab PO SCH (14:00)
[2016-10-24] MEDS: cefTRIAXone 1 GM in Sodium Chloride 0.9% 100 ML IV SCH (17:32)
[2016-10-24] MEDS: Azithromycin 500 MG in Sodium Chloride 0.9% 250 ML IV SCH (17:55)
[2016-10-24] MEDS: atorvaSTATin 20 MG Tab PO SCH (22:01)
[2016-10-24] MEDS: Zolpidem 5 MG Tab PO PRN (22:02)
[2016-10-25] MEDS: Albuterol 0.083% 2.5 MG/3 ML Neb Soln NEB SCH ×2 (01:05→07:27)
[2016-10-25 06:46] LABS: CHLORIDE,CL 107 mmol/L (101-111); SODIUM,NA 140 mmol/L (135-145)
[2016-10-25] MEDS: OMEGA PO SCH ×3 (07:14→21:02)
[2016-10-25] MEDS: FISH OIL PO SCH ×3 (07:14→21:02)
[2016-10-25] MEDS: MELATONIN 3 MG PO SCH ×2 (07:14→21:03)
[2016-10-25] MEDS: Acetylcysteine 20% 200 MG/ML 30 ML Nebulizer Soln SDV INH SCH (07:27)
[2016-10-25] MEDS: Insulin Aspart 100 Units/ML 3 ML Pen SUBCUT SCH ×4 (08:41→21:08)
[2016-10-25] MEDS ORDERED: Pantoprazole 40 MG Vial IVPUSH SCH (09:00)
[2016-10-25] MEDS: metFORMIN 500 MG Tab PO SCH (09:12)
[2016-10-25] MEDS: Potassium Chloride 10 MEQ Tab.ER PO SCH ×2 (09:13→17:51)
[2016-10-25] MEDS: Glimepiride 2 MG Tab PO SCH (09:13)
[2016-10-25] MEDS: Aspirin 81 MG Tab.EC PO SCH (09:14)
[2016-10-25] MEDS: Calcium Carbonate/Vitamin D3 1250 MG-200 Unit Tab PO SCH (09:14)
[2016-10-25] MEDS: Isosorbide Mononitrate 60 MG Tab.ER PO SCH (09:15)
[2016-10-25] MEDS: Furosemide 20 MG Tab PO SCH (09:15)
[2016-10-25] MEDS: Hydrochlorothiazide 25 MG Tab PO SCH (09:15)
[2016-10-25] MEDS: Lisinopril 10 MG Tab PO SCH (09:16)
[2016-10-25] MEDS: Metoprolol Succinate 50 MG Tab.ER PO SCH ×2 (09:17→21:10)
[2016-10-25] MEDS: Multivitamins,Therapeutic Tab PO SCH (09:17)
[2016-10-25] MEDS: amLODIPine 5 MG Tab PO SCH (09:19)
[2016-10-25] MEDS: Cholecalciferol (Vitamin D3) 400 Unit Tab PO SCH (09:19)
[2016-10-25] MEDS: Sodium Chloride 0.9% 10 ML Syringe FLUSH PRN ×3 (09:53→18:46)
--- NOTE | 2016-10-25 10:51 | CR ---
CLINICAL HISTORY: 76-year-old female reported to have "opacity" right midlung and perihilar left margy g on 23 October 2014. INTERPRETATION: Improvement. Definite interval clearing left perihilar pneumonic like consolidation of 23 October 2016. Persistent right infrahilar, middle lobe, atelectasis or infiltrate. Borderline cardiomegaly and cardiac pacemaker but no cephalization of vascular flow, signs of alveol ar edema or dependent effusion.
--- NOTE | 2016-10-25 12:12 | PCM.PN ---
- General Info Date of Service: 10/25/16 Admission Dx/Problem (Free Text): Admission Diagnosis/Problem Admission Diagnosis/Problem Pneumonia Subjective Update: Patient states that she is feeling better today. only has minimal cough, shortness of breath has significantly improved. feels stronger. she denies fever, chills, nausea, vomiting, chest pain, shortness of breath, palpitation, focal weakness. Functional Status: Reports: pain controlled - Review of Systems General: Denies: fever, weakness Pulmonary: Denies: shortness of breath Cardiovascular: Denies: chest pain Gastrointestinal: Denies: Abdominal pain Neurological: Denies: confusion - Patient Data Vitals - most recent: Last Vital Signs Temp 36.2 C 10/25/16 11:00 Pulse 70 10/25/16 11:00 Resp 20 10/25/16 11:00 BP 133/67 10/25/16 11:00 Pulse Ox 100 10/25/16 11:00 Weight - most recent: 70.817 kg I&O - last 24 hours: Intake & Output 10/24/16 10/25/16 10/25/16 22:59 06:59 14:59 Intake Total 1223 240 Output Total 200 Balance 1223 40 Lab Results last 24 hrs: Laboratory Results - last 24 hr 10/24/16 10/24/16 10/24/16 Range/Units 13:05 17:09 21:12 WBC (5.0-10.0) 10^3/uL RBC (4.2-5.4) 10^6/uL Hgb (12.0-16.0) g/dL Hct (37.0-47.0) % MCV (80-100) fL MCH (27.0-34.0) pg MCHC (33.0-35.0) g/dL Plt Count (150-450) 10^3/uL Neut % (Auto) (42.2-75.2) % Lymph % (Auto) (20.5-50.1) % [place] % (Auto) (2-8) % Eos % (Auto) (1.0-3.0) % Baso % (Auto) (0.0-1.0) % PT (9.0-12.0) SEC INR (0.9-1.2) Sodium (135-145) mmol/L Potassium (3.6-5.0) mmol/L Chloride (101-111) mmol/L Carbon Dioxide (21.0-31.0) mmol/L Anion Gap BUN (7-18) mg/dL Creatinine (0.6-1.3) mg/dL Est Cr Clr Drug Dosing mL/min Estimated GFR (MDRD) Glucose (74-105) mg/dL POC Glucose 239 H 51 L (83-110) mg/dl Calcium (8.4-10.2) mg/dl Troponin I 0.04 H* (0.00-0.02) ng/ml 10/24/16 10/25/16 10/25/16 Range/Units 22:04 05:52 05:52 WBC 3.6 L (5.0-10.0) 10^3/uL RBC 3.44 L (4.2-5.4) 10^6/uL Hgb 9.2 L (12.0-16.0) g/dL Hct 30.3 L (37.0-47.0) % MCV 88.1 (80-100) fL MCH 26.7 L (27.0-34.0) pg MCHC 30.4 L (33.0-35.0) g/dL Plt Count 180 (150-450) 10^3/uL Neut % (Auto) 60.6 (42.2-75.2) % Lymph % (Auto) 24.4 (20.5-50.1) % [place] % (Auto) 14.7 H (2-8) % Eos % (Auto) 0.0 L (1.0-3.0) % Baso % (Auto) 0.3 (0.0-1.0) % PT 13.6 H (9.0-12.0) SEC INR 1.4 H (0.9-1.2) Sodium (135-145) mmol/L Potassium (3.6-5.0) mmol/L Chloride (101-111) mmol/L Carbon Dioxide (21.0-31.0) mmol/L Anion Gap BUN (7-18) mg/dL Creatinine (0.6-1.3) mg/dL Est Cr Clr Drug Dosing mL/min Estimated GFR (MDRD) Glucose (74-105) mg/dL POC Glucose 117 H (83-110) mg/dl Calcium (8.4-10.2) mg/dl Troponin I (0.00-0.02) ng/ml 10/25/16 10/25/16 10/25/16 Range/Units 05:52 07:50 10:58 WBC (5.0-10.0) 10^3/uL RBC (4.2-5.4) 10^6/uL Hgb (12.0-16.0) g/dL Hct (37.0-47.0) % MCV (80-100) fL MCH (27.0-34.0) pg MCHC (33.0-35.0) g/dL Plt Count (150-450) 10^3/uL Neut % (Auto) (42.2-75.2) % Lymph % (Auto) (20.5-50.1) % [place] % (Auto) (2-8) % Eos % (Auto) (1.0-3.0) % Baso % (Auto) (0.0-1.0) % PT (9.0-12.0) SEC INR (0.9-1.2) Sodium 140 (135-145) mmol/L Potassium 3.3 L (3.6-5.0) mmol/L Chloride 107 (101-111) mmol/L Carbon Dioxide 27.0 (21.0-31.0) mmol/L Anion Gap 9.3 BUN 17 (7-18) mg/dL Creatinine 0.8 (0.6-1.3) mg/dL Est Cr Clr Drug Dosing 53.28 mL/min Estimated GFR (MDRD) > 60 Glucose 86 (74-105) mg/dL POC Glucose 111 H 243 H (83-110) mg/dl Calcium 8.3 L (8.4-10.2) mg/dl Troponin I (0.00-0.02) ng/ml Asad Results last 24 hrs: Microbiology 10/24/16 13:30 Gram Stain - Final Sputum - Expectorated Sputum Culture - Preliminary Normal Luz Elena 10/24/16 14:55 Stool Occult Blood (ASAD) - Final Stool / Feces Med Orders - Current: Current Medications Acetaminophen (Tylenol) 650 mg PO Q4H PRN PRN Reason: pain, fever Last Admin: 10/24/16 12:19 Dose: 650 mg Acetaminophen/Hydrocodone Bitart ([place] 325-10 Mg) 1 tab PO Q4H PRN PRN Reason: Pain (moderate 4-6) Last Admin: 10/24/16 05:11 Dose: 1 tab Acetylcysteine (Mucomyst 20%) 600 mg INH [id number] [facility] Last Admin: 10/25/16 07:27 Dose: 600 mg Amlodipine Besylate (Norvasc) 10 mg PO DAILY [facility] Last Admin: 10/25/16 09:19 Dose: 10 mg Aspirin (Halfprin) 81 mg PO DAILY [facility] Last Admin: 10/25/16 09:14 Dose: 81 mg Atorvastatin Calcium (Lipitor) 40 mg PO BEDTIME [facility] Last Admin: 10/24/16 22:01 Dose: 40 mg Benzocaine/Menthol (Cepacol Sore Throat) 1 lozenge MUCMEM Q4H PRN PRN Reason: Cough Calcium Carbonate (Calcium Carbonate/Vitamin D 1250 Mg-200 Unit) 1 tab PO DAILY [facility] Last Admin: 10/25/16 09:14 Dose: 1 tab Calcium Carbonate/Glycine (Tums) 500 mg PO ASDIRECTED PRN PRN Reason: Abdominal Pain Cholecalciferol (Vitamin D3) 400 units PO DAILY [facility] Last Admin: 10/25/16 09:19 Dose: 400 units Furosemide (Lasix) 20 mg PO DAILY [facility] Last Admin: 10/25/16 09:15 Dose: 20 mg Glimepiride (Amaryl) 8 mg PO DAILY [facility] Last Admin: 10/25/16 09:13 Dose: 8 mg Guaifenesin (Robitussin) 100 mg PO Q6H PRN PRN Reason: Cough Last Admin: 10/24/16 17:41 Dose: 100 mg Hydrochlorothiazide (Hydrochlorothiazide) 25 mg PO DAILY [facility] Last Admin: 10/25/16 09:15 Dose: 25 mg Azithromycin 500 mg/ Sodium (Chloride) 250 mls @ 250 mls/hr IV Q24H [facility] Last Admin: 10/24/16 17:55 Dose: 250 mls/hr Ceftriaxone Sodium 1 gm/ (Sodium Chloride) 100 mls @ 200 mls/hr IV Q24H [facility] Last Admin: 10/24/16 17:32 Dose: 200 mls/hr Insulin Aspart (Novolog) 0 unit SUBCUT QIDACANDBED [facility] PRN Reason: Protocol Last Admin: 10/25/16 08:41 Dose: Not Given Isosorbide Mononitrate (Imdur) 60 mg PO DAILY [facility] Last Admin: 10/25/16 09:15 Dose: 60 mg Lisinopril (Prinivil) 10 mg PO DAILY [facility] Last Admin: 10/25/16 09:16 Dose: 10 mg Loperamide HCl (Imodium) 2 mg PO ASDIRECTED PRN PRN Reason: Diarrhea Magnesium Oxide (Magnesium Oxide) 250 mg PO BID [facility] Last Admin: 10/25/16 09:15 Dose: 250 mg Metoprolol Succinate (Toprol Xl) 100 mg PO BID [facility] Last Admin: 10/25/16 09:17 Dose: 100 mg Multivitamins (Thera) 1 each PO DAILY [facility] Last Admin: 10/25/16 09:17 Dose: 1 each Nitroglycerin (Nitrostat) 0.4 mg SL ASDIRECTED PRN PRN Reason: Chest Pain (Fish Oil/[place]-3 Fatty Acids [Fish Oil] 1,000 Each) Own Med 1,000 each PO BID [facility] Last Admin: 10/25/16 09:22 Dose: 1,000 each (Melatonin [ Melatonin] 3 Mg) Own Med 3 mg PO BEDTIME [facility] Last Admin: 10/25/16 07:14 Dose: Not Given Ondansetron HCl (Zofran) 4 mg IVPUSH Q6H PRN PRN Reason: Nausea/Vomiting Pantoprazole Sodium (Protonix) 40 mg PO BEDTIME [facility] Potassium Chloride (Klor-Con 10) 20 meq PO BIDMEALS [facility] Last Admin: 10/25/16 09:13 Dose: 20 meq Sodium Chloride (Saline Flush) 10 ml FLUSH ASDIRECTED PRN PRN Reason: Keep Vein Open Last Admin: 10/25/16 09:53 Dose: 10 ml Warfarin Sodium (Coumadin) 5 mg PO MoFr@1400 [facility] Warfarin Sodium (Coumadin) 2.5 mg PO SuTuWeThSa@1400 [facility] Last Admin: 10/24/16 13:38 Dose: 2.5 mg Zolpidem Tartrate (Ambien) 5 mg PO BEDTIME PRN PRN Reason: Sleep Last Admin: 10/24/16 22:02 Dose: 5 mg Discontinued Medications Acetaminophen/Hydrocodone Bitart ([place] 325-10 Mg) 1 tab PO Q4H PRN PRN Reason: Pain Albuterol (Proventil Neb Soln) 2.5 mg NEB Q6HRRT [facility] Last Admin: 10/25/16 07:27 Dose: 2.5 mg Albuterol/Ipratropium (Duoneb 3.0-0.5 Mg/3 Ml) 3 ml NEB ONETIME ONE Stop: 10/23/16 15:47 Last Admin: 10/23/16 16:00 Dose: 3 ml Furosemide (Lasix) 60 mg IVPUSH NOW ONE Stop: 10/23/16 18:06 Last Admin: 10/23/16 18:44 Dose: 60 mg Furosemide (Lasix) 20 mg IVPUSH ONETIME ONE Stop: 10/24/16 02:01 Last Admin: 10/24/16 01:48 Dose: 20 mg Levofloxacin/Dextrose 500 mg/ (Premix) 100 mls @ 100 mls/hr IV ONETIME ONE Stop: 10/23/16 16:55 Last Infusion: 10/23/16 17:35 Dose: Infused Magnesium Sulfate 2 gm/ Premix 50 mls @ 25 mls/hr IV ONETIME ONE Stop: 10/23/16 19:48 Last Admin: 10/23/16 18:53 Dose: 25 mls/hr Metformin HCl (Glucophage) 500 mg PO BIDMEALS [facility] Last Admin: 10/25/16 09:12 Dose: 500 mg Omeprazole (Omeprazole) 20 mg PO BIDAC [facility] Last Admin: 10/24/16 05:14 Dose: 20 mg Pantoprazole Sodium (Protonix Iv) 80 mg IVPUSH ONETIME ONE Stop: 10/24/16 10:59 Last Admin: 10/24/16 12:18 Dose: 80 mg Pantoprazole Sodium (Protonix Iv) 40 mg IVPUSH DAILY [facility] Last Admin: 10/25/16 09:53 Dose: 40 mg Potassium Chloride (Klor-Con 10) 40 meq PO ONETIME ONE Stop: 10/23/16 18:11 Last Admin: 10/23/16 18:42 Dose: 40 meq Potassium Chloride (Klor-Con 10) 40 meq PO ONETIME ONE Stop: 10/24/16 07:14 Last Admin: 10/24/16 08:00 Dose: 40 meq - Exam Quality Assessment: supplemental oxygen General: alert, oriented Neck: supple Lungs: Normal respiratory effort, Decreased breath sounds. No: Rales, Wheezing Cardiovascular: irregular rhythm Abdomen: bowel sounds present, soft, no tenderness Back Exam: normal inspection Extremities: no edema Skin: warm, dry Psy/Mental Status: alert, normal affect, normal mood - Problem List & Annotations (1) Anemia SNOMED Code(s): 304745963 Code(s): D64.9 - ANEMIA, UNSPECIFIED Status: Acute Current Visit: Yes Qualifiers: Anemia type: unspecified type Qualified Code(s): D64.9 - Anemia, unspecified (2) COPD with acute exacerbation SNOMED Code(s): 318311959 Code(s): J44.1 - CHRONIC OBSTRUCTIVE PULMONARY DISEASE W (ACUTE) EXACERBATION Status: Acute Current Visit: Yes (3) Congestive heart failure SNOMED Code(s): 53448579 Code(s): I50.9 - HEART FAILURE, UNSPECIFIED Status: Acute Current Visit: Yes (4) Hypoxia SNOMED Code(s): 791986304, 439017665 Code(s): R09.02 - HYPOXEMIA Status: Acute Current Visit: Yes (5) Pneumonia SNOMED Code(s): 161983366 Code(s): J18.9 - PNEUMONIA, UNSPECIFIED ORGANISM Status: Acute Current Visit: Yes Qualifiers: Pneumonia type: due to unspecified organism Laterality: left Lung location: unspecified part of lung Qualified Code(s): J18.9 - Pneumonia, unspecified organism - Problem List Review Problem List Initiated/Reviewed/Updated: Yes - My Orders Last 24 Hours: My Active Orders 10/25/16 12:01 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 [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 Monitoring Discontinue] [RC] Click To Edit 10/26/16 07:00 FOLATE [REF] Routine VITAMIN B12 [REF] Routine 10/26/16 21:00 Pantoprazole [Protonix] 40 mg PO BEDTIME - Plan Plan:: Acute hypoxemic respiratory failure Sat is dropping to 83% on admission, now responding to nasal oxygen Likely due to the combination of pneumonia, COPD, CHF Address these cause this apparently Supplemental oxygen as needed - Will taper and try to stop it today Community acquired pneumonia Pending blood culture and sputum culture Repeat CXR on 25 October showed improvement on the left side but infiltrate still present on the right side Continue Rocephin and Azithromycin Continue Flutter valve COPD with acute exacerbation This seems resolved Stop Albuterol neb Acute CHF, unspecified Received Lasix 60 mg IV once upon admission, then 20 mg IV after 8 hours. She had good urine output. Continue Lasix 20 mg p.o. daily, lisinopril, hydrochlorothiazide, Imdur Discontinue fluid restrictions Echocardiogram is pending Discontinue telemetry Hypokalemia With further replace and recheck in the morning Atrial Fibrillation/Atrial flutter patient states that she has history of paroxysmal a-fib/flutter Rate is controlled Continue with Toprol Continue Warfarin for target INR of 2-3 Anemia, unknown type, appears chronic Stable Iron studies are pending, check B12, folate Followup as outpatient Continue protonix, change to oral Will continue the warfarin and Aspirin due to her significant cardiovascular disease Hx of CAD status post stent Minimally elevated troponin is non-diagnostic, likely due to hypoxemia continue with aspirin, indoor, lisinopril, Lipitor, metoprolol Low TSH without history of thyroid disease Check FT3, FT4 This need outpatient followup Diabetes mellitus Last Hgb A1c was 7.2 on 08/19/16 Treat with Amaryl Hold the metformin for now SSI DVT prophylaxis with Coumadin DNR code status - discussed on admission
[2016-10-25] MEDS ORDERED: Warfarin 5 MG Tab PO SCH (14:00)
[2016-10-25] MEDS: cefTRIAXone 1 GM in Sodium Chloride 0.9% 100 ML IV SCH (17:52)
[2016-10-25] MEDS: Azithromycin 500 MG in Sodium Chloride 0.9% 250 ML IV SCH (18:46)
[2016-10-25] MEDS: atorvaSTATin 20 MG Tab PO SCH (21:06)
[2016-10-26 06:59] LABS: CHLORIDE,CL 108 mmol/L (101-111); SODIUM,NA 143 mmol/L (135-145)
[2016-10-26] MEDS: Insulin Aspart 100 Units/ML 3 ML Pen SUBCUT SCH (07:32)
[2016-10-26 07:49] VITALS: BP 107/60
[2016-10-26] MEDS: Potassium Chloride 10 MEQ Tab.ER PO SCH (08:47)
[2016-10-26] MEDS: Hydrochlorothiazide 25 MG Tab PO SCH (08:48)
[2016-10-26] MEDS: Aspirin 81 MG Tab.EC PO SCH (08:48)
[2016-10-26] MEDS: Furosemide 20 MG Tab PO SCH (08:51)
[2016-10-26] MEDS: Cholecalciferol (Vitamin D3) 400 Unit Tab PO SCH (08:51)
[2016-10-26] MEDS: Lisinopril 10 MG Tab PO SCH (08:51)
[2016-10-26] MEDS: amLODIPine 5 MG Tab PO SCH (08:51)
[2016-10-26] MEDS: Metoprolol Succinate 50 MG Tab.ER PO SCH (08:52)
[2016-10-26] MEDS: Glimepiride 2 MG Tab PO SCH (08:52)
[2016-10-26] MEDS: Multivitamins,Therapeutic Tab PO SCH (08:53)
[2016-10-26] MEDS: Isosorbide Mononitrate 60 MG Tab.ER PO SCH (08:53)
[2016-10-26] MEDS: Calcium Carbonate/Vitamin D3 1250 MG-200 Unit Tab PO SCH (08:54)
[2016-10-26] MEDS: OMEGA PO SCH (08:55)
[2016-10-26] MEDS: FISH OIL PO SCH (08:55)
--- NOTE | 2016-10-26 09:44 | PCM.DCSUM1 ---
Discharge Summary - Hospital Course Free Text/Narrative:: Acute hypoxemic respiratory failure Sat was dropping to 83% on admission, responded to nasal oxygen Likely due to the combination of pneumonia, COPD, CHF resolved, off oxygen Community acquired pneumonia negative blood culture and sputum culture Repeat CXR on 25 October showed improvement on the left side but infiltrate still present on the right side was treated with Rocephin and Azithromycin finish treatment with Augmentin COPD with acute exacerbation This seems resolved Acute diastolic CHF, echocardiogram showed good ejection fraction, grade 2 diastolic dysfunction Received Lasix 60 mg IV once upon admission, then 20 mg IV after 8 hours. She had good urine output. Continue Lasix 20 mg p.o. daily, lisinopril, hydrochlorothiazide, Imdur follow as outpatient Hypokalemia was replaced, follow periodically Atrial Fibrillation/Atrial flutter patient states that she has history of paroxysmal a-fib/flutter Rate is controlled Continue with Toprol Continue Warfarin for target INR of 2-3 Anemia, iron deficiency, appears chronic low iron level B12, folate Pending Followup as outpatient Continue proton pump inhibitor Will continue the warfarin and Aspirin due to her significant cardiovascular disease Hx of CAD status post stent Minimally elevated troponin is non-diagnostic, likely due to hypoxemia continue with aspirin, indoor, lisinopril, Lipitor, metoprolol Low TSH without history of thyroid disease pending FT3, FT4 This need outpatient followup Diabetes mellitus Last Hgb A1c was 7.2 on 08/19/16 Treat with Amaryl, metformin - Discharge Data Discharge Date: 10/26/16 Discharge Disposition: Home, Self-Care 01 Condition: Good - Discharge Diagnosis/Problem(s) (1) Anemia SNOMED Code(s): 164999175 ICD Code: D64.9 - ANEMIA, UNSPECIFIED Status: Acute Current Visit: Yes Qualifiers: Anemia type: iron deficiency Qualified Code(s): D64.9 - Anemia, unspecified (2) COPD with acute exacerbation SNOMED Code(s): 745880160 ICD Code: J44.1 - CHRONIC OBSTRUCTIVE PULMONARY DISEASE W (ACUTE) EXACERBATION Status: Acute Current Visit: Yes (3) Congestive heart failure SNOMED Code(s): 77025469 ICD Code: I50.9 - HEART FAILURE, UNSPECIFIED Status: Acute Current Visit : Yes Qualifiers: Congestive heart failure type: diastolic (4) Hypoxia SNOMED Code(s): 521772684, 667672906 ICD Code: R09.02 - HYPOXEMIA Status: Acute Current Visit: Yes (5) Pneumonia SNOMED Code(s): 412963133 ICD Code: J18.9 - PNEUMONIA, UNSPECIFIED ORGANISM Status: Acute Current Visit: Yes Qualifiers: Pneumonia type: due to unspecified organism Laterality: left Lung location: unspecified part of lung Qualified Code(s): J18.9 - Pneumonia, unspecified organism - Patient Instructions Diet: Heart Healthy Diet Activity: As Tolerated - Discharge Plan Prescriptions/Med Rec: Amoxicillin/Clavulanate K [Augmentin 500 MG\125 MG] 1 tab PO Q8HR #15 tablet Furosemide [Lasix] 20 mg PO DAILY #30 tablet Iron Polysaccharides Complex [Ferrex 150] 150 mg PO DAILY #30 cap Home Medications: Home Meds Fish Oil/White-3 Fatty Acids [Fish Oil] 1,000 each PO BID 10/01/13 [History] Glimepiride [Amaryl] 8 mg PO DAILY 10/01/13 [History] Hydrochlorothiazide 25 mg PO DAILY 10/01/13 [History] Hydrocodone/Acetaminophen [[place] 10-325] 1 tab PO Q6HR PRN 10/01/13 [History] Isosorbide Mononitrate [Imdur] 60 mg PO DAILY 10/01/13 [History] Lisinopril 10 mg PO DAILY 10/01/13 [History] Magnesium Oxide 250 mg PO BID 10/01/13 [History] Metoprolol Succinate [Toprol XL 100mg] 100 mg PO BID 10/01/13 [History] Multivitamin [Multivitamins] 1 each PO DAILY 10/01/13 [History] Nitroglycerin [Nitrostat] 0.4 mg SL ASDIRECTED PRN 10/01/13 [History] Omeprazole [Prilosec] 20 mg PO BID 10/01/13 [History] Potassium Chloride 20 meq PO BID 10/01/13 [History] Warfarin Sodium 5 mg PO .TUESDAY,Tuesday10/01/13 [History] atorvaSTATin [Lipitor] 40 mg PO BEDTIME 10/01/13 [History] metFORMIN [Glucophage] 500 mg PO BID 10/01/13 [History] Aspirin [Ecotrin] 81 mg PO DAILY 10/23/16 [History] Calcium Carbonate [Calcium] 600 mg PO DAILY 10/23/16 [History] Calcium Carbonate [Tums] 500 mg PO ASDIRECTED PRN 10/23/16 [History] Ergocalciferol (Vitamin D2) [Vitamin D] 400 unit PO DAILY 10/23/16 [History] Loperamide [Imodium] 1 tab PO ASDIRECTED PRN 10/23/16 [History] Melatonin 3 mg PO BEDTIME 10/23/16 [History] Warfarin [Coumadin] 2.5 mg PO .BAHENA,TU,WE,TH,SA 10/23/16 [History] amLODIPine [Norvasc] 10 mg PO DAILY 10/23/16 [History] Amoxicillin/Clavulanate K [Augmentin 500 MG\125 MG] 1 tab PO Q8HR #15 tablet 03/07 [Rx] Furosemide [Lasix] 20 mg PO DAILY #30 tablet 10/26/16 [Rx] Iron Polysaccharides Complex [Ferrex 150] 150 mg PO DAILY #30 cap 10/26/16 [Rx] Referrals: PCP,None [Primary Care Provider] - (Dr. Singh in 3-4 days) - Discharge Summary/Plan Comment DC Time >30 min.: No - General Info Subjective Update: Patient states that she is feeling well today. only has minimal cough, shortness of breath has significantly improved. feels stronger. she denies fever, chills, nausea, vomiting, chest pain, shortness of breath, palpitation, focal weakness. - Review of Systems General: Denies: fever, weakness Pulmonary: Denies: shortness of breath Cardiovascular: Denies: chest pain Gastrointestinal: Denies: Abdominal pain - Patient Data Vitals - Most Recent: Last Vital Signs Temp 36.8 C 10/26/16 07:48 Pulse 64 10/26/16 08:52 Resp 20 10/26/16 07:48 BP 107/60 10/26/16 08:52 Pulse Ox 100 10/26/16 07:48 Weight - Most Recent: 70.216 kg I&O - Last 24 hours: Intake & Output 10/25/16 10/26/16 10/26/16 22:59 06:59 14:59 Intake Total 1144 50 365 Output Total 250 285 Balance 894 -235 365 Lab Results - Last 24 hrs: Laboratory Results - last 24 hr 10/24/16 10/25/16 10/25/16 Range/Units 05:40 10:58 16:46 WBC (5.0-10.0) 10^3/uL RBC (4.2-5.4) 10^6/uL Hgb (12.0-16.0) g/dL Hct (37.0-47.0) % MCV (80-100) fL MCH (27.0-34.0) pg MCHC (33.0-35.0) g/dL Plt Count (150-450) 10^3/uL Neut % (Auto) (42.2-75.2) % Lymph % (Auto) (20.5-50.1) % [place] % (Auto) (2-8) % Eos % (Auto) (1.0-3.0) % Baso % (Auto) (0.0-1.0) % Sodium (135-145) mmol/L Potassium (3.6-5.0) mmol/L Chloride (101-111) mmol/L Carbon Dioxide (21.0-31.0) mmol/L Anion Gap BUN (7-18) mg/dL Creatinine (0.6-1.3) mg/dL Est Cr Clr Drug Dosing mL/min Estimated GFR (MDRD) Glucose (74-105) mg/dL POC Glucose 243 H 69 L (83-110) mg/dl Calcium (8.4-10.2) mg/dl Iron 17 L (40-150) ug/dL TIBC 447 (261-478) ug/dL Transferrin 319 (192-382) mg/dL Transferrin % Sat 3.8 L (20.0-50.0) % Ferritin 23 (11-307) ng/mL 10/25/16 10/26/16 10/26/16 Range/Units 20:37 06:02 06:02 WBC 3.6 L (5.0-10.0) 10^3/uL RBC 3.45 L (4.2-5.4) 10^6/uL Hgb 9.3 L (12.0-16.0) g/dL Hct 30.8 L (37.0-47.0) % MCV 89.3 (80-100) fL MCH 27.0 (27.0-34.0) pg MCHC 30.2 L (33.0-35.0) g/dL Plt Count 202 (150-450) 10^3/uL Neut % (Auto) 54.0 (42.2-75.2) % Lymph % (Auto) 32.9 (20.5-50.1) % [place] % (Auto) 11.7 H (2-8) % Eos % (Auto) 0.8 L (1.0-3.0) % Baso % (Auto) 0.6 (0.0-1.0) % Sodium 143 (135-145) mmol/L Potassium 3.3 L (3.6-5.0) mmol/L Chloride 108 (101-111) mmol/L Carbon Dioxide 28.0 (21.0-31.0) mmol/L Anion Gap 10.3 BUN 18 (7-18) mg/dL Creatinine 0.8 (0.6-1.3) mg/dL Est Cr Clr Drug Dosing 53.28 mL/min Estimated GFR (MDRD) > 60 Glucose 91 (74-105) mg/dL POC Glucose 98 (83-110) mg/dl Calcium 8.5 (8.4-10.2) mg/dl Iron (40-150) ug/dL TIBC (261-478) ug/dL Transferrin (192-382) mg/dL Transferrin % Sat (20.0-50.0) % Ferritin (11-307) ng/mL MICHELET Results - Last 24 hrs: Microbiology 10/24/16 13:30 Gram Stain - Final Sputum - Expectorated Sputum Culture - Preliminary YEAST 10/24/16 13:05 Aerobic Blood Culture - Preliminary Blood - Venous NO GROWTH AFTER 1 DAY Anaerobic Blood Culture - Preliminary NO GROWTH AFTER 1 DAY Med Orders - Current: Current Medications Acetaminophen (Tylenol) 650 mg PO Q4H PRN PRN Reason: pain, fever Last Admin: 10/24/16 12:19 Dose: 650 mg Acetaminophen/Hydrocodone Bitart ([place] 325-10 Mg) 1 tab PO Q4H PRN PRN Reason: Pain (moderate 4-6) Last Admin: 10/24/16 05:11 Dose: 1 tab Amlodipine Besylate (Norvasc) 10 mg PO DAILY [facility] Last Admin: 10/26/16 08:51 Dose: 10 mg Aspirin (Halfprin) 81 mg PO DAILY TRISH Last Admin: 03/07/17 08:48 Dose: 81 mg Atorvastatin Calcium (Lipitor) 40 mg PO BEDTIME [facility] Last Admin: 10/25/16 21:06 Dose: 40 mg Benzocaine/Menthol (Cepacol Sore Throat) 1 lozenge MUCMEM Q4H PRN PRN Reason: Cough Calcium Carbonate (Calcium Carbonate/Vitamin D 1250 Mg-200 Unit) 1 tab PO DAILY [facility] Last Admin: 10/26/16 08:54 Dose: 1 tab Calcium Carbonate/Glycine (Tums) 500 mg PO ASDIRECTED PRN PRN Reason: Abdominal Pain Cholecalciferol (Vitamin D3) 400 units PO DAILY [facility] Last Admin: 10/26/16 08:51 Dose: 400 units Furosemide (Lasix) 20 mg PO DAILY [facility] Last Admin: 10/26/16 08:51 Dose: 20 mg Glimepiride (Amaryl) 8 mg PO DAILY [facility] Last Admin: 10/26/16 08:52 Dose: 8 mg Guaifenesin (Robitussin) 100 mg PO Q6H PRN PRN Reason: Cough Last Admin: 10/24/16 17:41 Dose: 100 mg Hydrochlorothiazide (Hydrochlorothiazide) 25 mg PO DAILY [facility] Last Admin: 10/26/16 08:48 Dose: 25 mg Azithromycin 500 mg/ Sodium (Chloride) 250 mls @ 250 mls/hr IV Q24H [facility] Last Admin: 10/25/16 18:46 Dose: 250 mls/hr Ceftriaxone Sodium 1 gm/ (Sodium Chloride) 100 mls @ 200 mls/hr IV Q24H [facility] Last Admin: 10/25/16 17:52 Dose: 200 mls/hr Insulin Aspart (Novolog) 0 unit SUBCUT QIDACANDBED [facility] PRN Reason: Protocol Last Admin: 10/26/16 07:32 Dose: Not Given Isosorbide Mononitrate (Imdur) 60 mg PO DAILY [facility] Last Admin: 10/26/16 08:53 Dose: 60 mg Lisinopril (Prinivil) 10 mg PO DAILY [facility] Last Admin: 10/26/16 08:51 Dose: 10 mg Loperamide HCl (Imodium) 2 mg PO ASDIRECTED PRN PRN Reason: Diarrhea Magnesium Oxide (Magnesium Oxide) 250 mg PO BID [facility] Last Admin: 10/26/16 08:52 Dose: 250 mg Metoprolol Succinate (Toprol Xl) 100 mg PO BID [facility] Last Admin: 10/26/16 08:52 Dose: 100 mg Multivitamins (Thera) 1 each PO DAILY [facility] Last Admin: 10/26/16 08:53 Dose: 1 each Nitroglycerin (Nitrostat) 0.4 mg SL ASDIRECTED PRN PRN Reason: Chest Pain (Fish Oil/White-3 Fatty Acids [Fish Oil] 1,000 Each) Own Med 1,000 each PO BID [facility] Last Admin: 10/26/16 08:55 Dose: 1,000 each (Melatonin [ Melatonin] 3 Mg) Own Med 3 mg PO BEDTIME [facility] Last Admin: 10/25/16 21:03 Dose: 3 mg Ondansetron HCl (Zofran) 4 mg IVPUSH Q6H PRN PRN Reason: Nausea/Vomiting Pantoprazole Sodium (Protonix) 40 mg PO BEDTIME [facility] Polysaccharide Iron Complex (Ferrex 150) 150 mg PO DAILY [facility] Potassium Chloride (Klor-Con 10) 40 meq PO ONETIME ONE Stop: 10/26/16 11:01 Potassium Chloride (Klor-Con 10) 20 meq PO WITHBREAKFAST [facility] Sodium Chloride (Saline Flush) 10 ml FLUSH ASDIRECTED PRN PRN Reason: Keep Vein Open Last Admin: 10/25/16 18:46 Dose: 10 ml Warfarin Sodium (Coumadin) 5 mg PO [id number]@1400 [facility] Last Admin: 10/25/16 13:59 Dose: 5 mg Warfarin Sodium (Coumadin) 2.5 mg PO SuTuWeThSa@1400 [facility] Last Admin: 10/24/16 13:38 Dose: 2.5 mg Zolpidem Tartrate (Ambien) 5 mg PO BEDTIME PRN PRN Reason: Sleep Last Admin: 10/24/16 22:02 Dose: 5 mg Discontinued Medications Acetaminophen/Hydrocodone Bitart ([place] 325-10 Mg) 1 tab PO Q4H PRN PRN Reason: Pain Acetylcysteine (Mucomyst 20%) 600 mg INH I42QTER [facility] Last Admin: 10/25/16 07:27 Dose: 600 mg Albuterol (Proventil Neb Soln) 2.5 mg NEB Q6HRRT [facility] Last Admin: 10/25/16 07:27 Dose: 2.5 mg Albuterol/Ipratropium (Duoneb 3.0-0.5 Mg/3 Ml) 3 ml NEB ONETIME ONE Stop: 10/23/16 15:47 Last Admin: 10/23/16 16:00 Dose: 3 ml Furosemide (Lasix) 60 mg IVPUSH NOW ONE Stop: 10/23/16 18:06 Last Admin: 10/23/16 18:44 Dose: 60 mg Furosemide (Lasix) 20 mg IVPUSH ONETIME ONE Stop: 10/24/16 02:01 Last Admin: 10/24/16 01:48 Dose: 20 mg Levofloxacin/Dextrose 500 mg/ (Premix) 100 mls @ 100 mls/hr IV ONETIME ONE Stop: 10/23/16 16:55 Last Infusion: 10/23/16 17:35 Dose: Infused Magnesium Sulfate 2 gm/ Premix 50 mls @ 25 mls/hr IV ONETIME ONE Stop: 10/23/16 19:48 Last Admin: 10/23/16 18:53 Dose: 25 mls/hr Metformin HCl (Glucophage) 500 mg PO BIDMEALS [facility] Last Admin: 10/25/16 09:12 Dose: 500 mg Omeprazole (Omeprazole) 20 mg PO BIDAC [facility] Last Admin: 10/24/16 05:14 Dose: 20 mg Pantoprazole Sodium (Protonix Iv) 80 mg IVPUSH ONETIME ONE Stop: 10/24/16 10:59 Last Admin: 10/24/16 12:18 Dose: 80 mg Pantoprazole Sodium (Protonix Iv) 40 mg IVPUSH DAILY [facility] Last Admin: 10/25/16 09:53 Dose: 40 mg Potassium Chloride (Klor-Con 10) 20 meq PO BIDMEALS [facility] Last Admin: 10/26/16 08:47 Dose: 20 meq Potassium Chloride (Klor-Con 10) 40 meq PO ONETIME ONE Stop: 10/23/16 18:11 Last Admin: 10/23/16 18:42 Dose: 40 meq Potassium Chloride (Klor-Con 10) 40 meq PO ONETIME ONE Stop: 10/24/16 07:14 Last Admin: 10/24/16 08:00 Dose: 40 meq - Exam Quality Assessment: Denies: supplemental oxygen General: Reports: alert, oriented Neck: Reports: supple Lungs: Reports: Clear to auscultation, Normal respiratory effort. Denies: Rales Cardiovascular: Reports: irregular rhythm Abdomen: Reports: bowel sounds present, soft, no tenderness Extremities: Reports: no edema *Q Meaningful Use (DIS) - VTE *Q VTE Criteria *Q: - Stroke *Q Stroke Criteria *Q: - AMI *Q AMI Criteria *Q:
[2016-10-26] MEDS ORDERED: Potassium Chloride 10 MEQ Tab.ER PO ONE (11:00)
[2016-10-26] MEDS ORDERED: Pantoprazole 40 MG Tab.CR PO SCH (21:00)
[2016-10-27] MEDS ORDERED: Potassium Chloride 10 MEQ Tab.ER PO SCH (08:00)
[2016-10-27] MEDS ORDERED: Iron Polysaccharides Complex 150 MG Cap PO SCH (09:00)
--- NOTE | 2016-11-01 04:14 | EKG ---
DATE: 10/23/2016 TIME: 1521 I reviewed the EKG and agree with the machine's reading. [facility] /[id number]
== END 2016-10-26 10:15 | disposition home or self-care (01) | DRG 190 ==
LOC: DL.ED 13:58 → DL.MS 17:01 → UNDOADMIN 17:01 → DL.MS 17:39 → UNDODISIN 10-26 10:15
PROVIDERS: ADMIT Family Medicine; ATTEND Family Medicine
DX: J44.0 Chronic obstructive pulmonary disease with (acute) lower respiratory infection (principal); J18.9 Pneumonia, unspecified organism; J96.01 Acute respiratory failure with hypoxia; I50.31 Acute diastolic (congestive) heart failure; I48.92 Unspecified atrial flutter; J44.1 Chronic obstructive pulmonary disease with (acute) exacerbation; I10 Essential (primary) hypertension; R94.6 Abnormal results of thyroid function studies; Z95.0 Presence of cardiac pacemaker; I25.10 Atherosclerotic heart disease of native coronary artery without angina pectoris; I11.0 Hypertensive heart disease with heart failure; Z87.891 Personal history of nicotine dependence; E87.6 Hypokalemia; I48.91 Unspecified atrial fibrillation; D64.9 Anemia, unspecified; R91.1 Solitary pulmonary nodule; E11.9 Type 2 diabetes mellitus without complications; Z79.84 Long term (current) use of oral hypoglycemic drugs; E83.42 Hypomagnesemia; Z95.5 Presence of coronary angioplasty implant and graft; Z79.82 Long term (current) use of aspirin; Z79.899 Other long term (current) drug therapy; Z88.8 Allergy status to other drugs, medicaments and biological substances; D50.9 Iron deficiency anemia, unspecified
CPT/HCPCS: 36415; 71020; 80053; 82150; 83036; 83690; 83735; 83880; 84439; 84443; 84481; 84484; 85025; 85610; 87040 ×2; 93005; 93010; 94640; 96365; 99285; J1956; 80048; 82272; 82607; 82728; 82746; 82962; 83540; 84466; 87070; 87205; 93306; A9270-GY; C9113; J0456; J0696; J1815-GY; J1940; J3475; J7050; J7620-GY

== ENCOUNTER 2017-02-23 07:23 | Day surgery (SDC) | payer MEDICARE, BC ==
[~2017-02-23 07:23] MED LIST: Dextrose 5%-0.45% NaCl 1,000 ML IV SCH; Midazolam 1 MG/ML 2 ML SDV ONE; Sodium Chloride 0.9% 10 ML Syringe FLUSH PRN; fentaNYL 100 MCG/2 ML SDV ONE
[2017-02-23] MEDS ORDERED: fentaNYL 100 MCG/2 ML SDV IV ONE ×3 (07:53→16:54)
[2017-02-23] MEDS ORDERED: Midazolam 1 MG/ML 2 ML SDV IV ONE ×3 (07:54→16:54)
[2017-02-23 10:14] VITALS: BP 123/48
--- NOTE | 2017-02-23 12:14 | OR ---
DATE: 02/23/2017 PROCEDURE: Esophagogastroduodenoscopy and multiple pinch biopsies. INSTRUMENT USED: GIF-Q180 Olympus video panendoscope. PREMEDICATIONS: No oral topical anesthesia used. Fentanyl 100 mcg intravenous, Versed 1.5 mg intravenous. Nasal 2 L O2 cannula. The procedure was done under pulse oximetry, BP recording, and cardiac monitoring. INDICATION: The patient with unexplained iron-deficiency anemia. Esophagogastroduodenoscopy is performed for detection of any active erosive lesions, Perez's esophagus and/or malignancy also under consideration, H. pylori status to be determined, small bowel biopsies to be obtained for celiac disease if indicated, endoscopic hemostasis therapy if needed. DESCRIPTION OF PROCEDURE: The scope was passed with ease. Adequate visualization of the esophagus was made from proximal to distal areas. No upper esophageal lesions identified. No distal esophageal stricture. No uphill or downhill esophageal varices. No Meghna-Burkett tear. No evidence of erosive esophagitis by [place] criteria. No esophageal polyp or tumor mass identified. Z-line was seen at around 39 cm distal to the oral verge, configuration consistent with grade 1 by ZAP classification. No proximal gastric varices noted. Gastric fundus examination by retroflexion showed no polypoid lesions. No gastric ulcer, malignant mass, or vascular ectasia identified. Some diffuse gastric atrophy was noted. Duodenal bulb showed no ulcer. Visualized second part of the duodenum was unremarkable. Multiple pinch biopsies 4 in number were taken from different areas of the second part of the duodenum, and tissues were also obtained from the duodenal bulb at 9 and 12 o'clock positions and sent for any histopathologic evidence of celiac disease. Multiple pinch biopsies were obtained from the gastric antrum and proximal body and sent for PyloriTek test for H. pylori and histopathology. No bleeding was noted from any of the visualized areas at the completion of examination. Photographs were taken of the duodenal bulb, gastric antrum, fundus, and distal esophagus. IMPRESSION: Normal study. The patient tolerated the procedure well. [facility] /[id number]
== END 2017-02-23 10:10 | disposition home or self-care (01) ==
LOC: DL.ENDO 07:23
PROVIDERS: ATTEND Internal Medicine Gastroenterology
DX: K29.50 Unspecified chronic gastritis without bleeding (principal); I25.10 Atherosclerotic heart disease of native coronary artery without angina pectoris; I10 Essential (primary) hypertension; E78.5 Hyperlipidemia, unspecified; E11.9 Type 2 diabetes mellitus without complications; Z88.8 Allergy status to other drugs, medicaments and biological substances; Z79.82 Long term (current) use of aspirin; Z79.899 Other long term (current) drug therapy; Z79.84 Long term (current) use of oral hypoglycemic drugs; Z79.01 Long term (current) use of anticoagulants; Z95.0 Presence of cardiac pacemaker; Z98.890 Other specified postprocedural states; Z95.5 Presence of coronary angioplasty implant and graft
CPT/HCPCS: 43239; 87077; J2250; J3010; J7042; 88305

== ENCOUNTER 2017-02-28 06:49 | Day surgery (SDC) | payer MEDICARE, BC ==
[~2017-02-28 06:49] MED LIST changes: -Dextrose 5%-0.45% NaCl 1,000 ML IV SCH; -Sodium Chloride 0.9% 10 ML Syringe FLUSH PRN
[2017-02-28] MEDS ORDERED: Dextrose 5%-0.45% NaCl 1,000 ML IV SCH (07:30)
[2017-02-28] MEDS ORDERED: fentaNYL 100 MCG/2 ML SDV IV ONE ×5 (08:56→15:57)
[2017-02-28] MEDS ORDERED: Midazolam 1 MG/ML 2 ML SDV IV ONE ×7 (08:57→15:57)
[2017-02-28 11:05] VITALS: BP 122/54
--- NOTE | 2017-02-28 14:09 | OR ---
DATE: 02/28/2017 PROCEDURE: Total colonoscopy, NBI, and Argon plasma sack department supervisor therapy. INSTRUMENT USED: PCF-160AL Olympus video colonoscope. ERBE APCS system. PREMEDICATIONS: Fentanyl 150 mcg intravenous, Versed 4 mg intravenous. Nasal O2 cannula. The procedure was done under pulse oximetry, BP recording, and front desk monitor. INDICATION: The patient with unexplained iron-deficiency anemia and chronic diarrhea. Colonoscopic examination is done for detection of any polypoid lesions and removal, endoscopic hemostasis therapy if needed. Initial rectal exam shows external hemorrhoidal tags. Rigid anoscopy was normal. DESCRIPTION OF PROCEDURE: The colonoscope was passed with ease up to the ileocecal area, photographs were taken of the cecum showing angiodysplastic area without bleeding from it, photographs were taken, APC therapy was given. No bleeding was noted from any of the visualized areas at the commencement of the examination. No stricture. No vascular ectasia. No large isolated ulceration seen. No evidence of diffuse inflammatory bowel disease in the form of friability, contact bleeding, or ulcerations. No polyp or tumor mass identified. Probing the proximal sides of folds and flexures using adequate distention and clearing of the stool material, withdrawal of the scope was made, cecum to rectum time over 6 minutes. No bleeding was noted from any of the visualized areas at the completion of examination. IMPRESSION: Cecal angiodysplasia. The patient tolerated the procedure well. [facility] /[id number]
== END 2017-02-28 11:08 | disposition home or self-care (01) ==
LOC: DL.ENDO 06:49
PROVIDERS: ATTEND Internal Medicine Gastroenterology
DX: K55.20 Angiodysplasia of colon without hemorrhage (principal); I25.10 Atherosclerotic heart disease of native coronary artery without angina pectoris; I10 Essential (primary) hypertension; E78.5 Hyperlipidemia, unspecified; E11.9 Type 2 diabetes mellitus without complications; Z95.5 Presence of coronary angioplasty implant and graft; Z88.8 Allergy status to other drugs, medicaments and biological substances; Z95.0 Presence of cardiac pacemaker; Z79.82 Long term (current) use of aspirin; Z79.84 Long term (current) use of oral hypoglycemic drugs; Z79.01 Long term (current) use of anticoagulants; Z79.899 Other long term (current) drug therapy
CPT/HCPCS: 45382; J2250; J3010; J7042

== ENCOUNTER 2019-09-17 21:08 | Inpatient (IN) | payer MEDICARE, BC ==
--- NOTE | 2019-09-17 21:23 | EDM.PDOC ---
ED HPI GENERAL MEDICAL PROBLEM - General Chief Complaint: Cardiovascular Problem Stated Complaint: AMBULANCE Time Seen by Provider: 09/17/19 21:19 Source of Information: Reports: Patient, EMS, EMS Notes Reviewed, Family, RN, RN Notes Reviewed History Limitations: Reports: Altered Mental Status - History of Present Illness INITIAL COMMENTS - FREE TEXT/NARRATIVE: patient presents to ER per DL . Ambulance service was paged out to an unresponsive female who was breathing. EMS states family stopped over to check on the patient and found her on the floor unresponsive, and called EMS. Blood sugar per EMS was 30. D10 given, blood sugar upon arrival 69. patient alert and oriented upon arrival to the ER, unsure of the date. Patient states she is diabetic, checks her blood sugar regularly, and takes oral agents only. EMS reports heart rate of 20 initially upon arrival, pacemaker is in place, and upon arrival to the ER rate is 75. Patient has history of atrial fib, and is anticoagulated for that. Patient has a history of multiple myeloma is treated with fentanyl patches for pain. A new fentanyl patch had been put on today, and was removed by EMS. report from niece who is POA states there has been significant physical and cognitive decline recently with the patient. Patient has been found on the floor several times, patient states she has been crawling around on her hands and knees due to back pain. Patient has had a lot of forgetfulness, including calls to family members asking what color her car was or where her family worked. She states the patient has not been taking her meds as directed, and has not been eating or drinking well. Onset: Today, Sudden - Related Data Allergies Allergy/AdvReac Type Severity Reaction Status Date / Time etodolac [Etodolac] Allergy Hives Verified 02/28/17 07:00 nadolol Allergy Rash Verified 02/28/17 07:00 niacin Allergy Rash Verified 02/28/17 07:00 spironolactone Allergy Fatigue Verified 02/28/17 07:00 Home Meds: Home Meds Fish Oil/[place]-3 Fatty Acids [Fish Oil] 1,000 each PO BID 10/01/13 [History] Glimepiride [Amaryl] 0.5 tab PO DAILY 10/01/13 [History] Hydrocodone/Acetaminophen [[place]opold 10-325] 1 tab PO Q6HR PRN 10/01/13 [History] Isosorbide Mononitrate [Imdur] 60 mg PO DAILY 10/01/13 [History] Lisinopril 10 mg PO DAILY 10/01/13 [History] Magnesium Oxide 250 mg PO BID 10/01/13 [History] Metoprolol Succinate [Toprol XL 100mg] 100 mg PO BID 10/01/13 [History] Multivitamin [Multivitamins] 1 each PO DAILY 10/01/13 [History] Nitroglycerin [Nitrostat] 0.4 mg SL ASDIRECTED PRN 10/01/13 [History] Potassium Chloride 20 meq PO BID 10/01/13 [History] Warfarin Sodium 5 mg PO ASDIRECTED 10/01/13 [History] atorvaSTATin [Lipitor] 40 mg PO BEDTIME 10/01/13 [History] hydroCHLOROthiazide [Hydrochlorothiazide] 25 mg PO DAILY 10/01/13 [History] metFORMIN [Glucophage] 500 mg PO BID 10/01/13 [History] Aspirin [Ecotrin EC] 81 mg PO DAILY 10/23/16 [History] Calcium Carbonate [Tums] 500 mg PO ASDIRECTED PRN 10/23/16 [History] Ergocalciferol (Vitamin D2) [Vitamin D] 400 unit PO DAILY 10/23/16 [History] Loperamide [Imodium] 1 tab PO ASDIRECTED PRN 10/23/16 [History] Melatonin 3 mg PO BEDTIME 10/23/16 [History] Warfarin [Coumadin] 2.5 mg PO ASDIRECTED 10/23/16 [History] amLODIPine [Norvasc] 10 mg PO DAILY 10/23/16 [History] Iron Polysaccharides Complex [Ferrex 150] 150 mg PO DAILY #30 cap 10/26/16 [Rx] Calcium Carbonate/Vitamin D3 [Calcium 600 + Vit D Tablet] 1 tab PO DAILY [History] Ferrous Sulfate [Iron] 325 mg PO BIDMEALS 02/21/17 [History] Furosemide [Lasix] 20 mg PO DAILY PRN 02/21/17 [History] Pantoprazole Sodium [Protonix] 1 tab PO DAILY 02/21/17 [History] Past Medical History HEENT History: Reports: Hard of Hearing, Impaired Vision Other HEENT History: wears glasses Cardiovascular History: Reports: Afib, Arrhythmia, CAD, Hypertension, Pacemaker , PTCA, Stents Respiratory History: Reports: Pneumonia, Recurrent Gastrointestinal History: Reports: GERD, Irritable Bowel Syndrome Genitourinary History: Reports: None Other Genitourinary History: frequency [employer] History: Reports: Spontaneous Musculoskeletal History: Reports: Arthritis, Back Pain, Chronic Neurological History: Reports: None Psychiatric History: Reports: None Endocrine/Metabolic History: Reports: Diabetes, Type II Hematologic History: Reports: Iron Deficiency Immunologic History: Reports: None Oncologic (Cancer) History: Reports: Bladder Dermatologic History: Reports: None - Infectious Disease History Infectious Disease History: Reports: Chicken Pox, Measles - Past Surgical History Head Surgeries/Procedures: Reports: None HEENT Surgical History: Reports: None Cardiovascular Surgical History: Reports: Pacer Respiratory Surgical History: Reports: None GI Surgical History: Reports: Colonoscopy, EGD Female Surgical History: Reports: Breast Biopsy Neurological Surgical History: Reports: None Social & Family History - Family History Family Medical History: Noncontributory - Caffeine Use Caffeine Use: Reports: Coffee - Living Situation & Occupation Living situation: Reports: Alone Occupation: Employed ED ROS GENERAL - Review of Systems Review Of Systems: Comprehensive ROS is negative, except as noted in HPI. ED EXAM, GENERAL - Physical Exam Exam: See Below Exam Limited By: No Limitations General Appearance: Alert, WD/WN, No Apparent Distress Eye Exam: Bilateral Eye: EOMI, Normal Inspection Ears: Normal External Exam, Hearing Grossly Normal Nose: Normal Inspection Throat/Mouth: Normal Inspection, Normal Voice, No Airway Compromise Head: Atraumatic, Normocephalic Neck: Normal Inspection, Supple, Non-Tender, Full Range of Motion Respiratory/Chest: No Respiratory Distress, Lungs Clear, No Accessory Muscle Use , Chest Non-Tender, Decreased Breath Sounds Cardiovascular: Irregularly Irregular, Other (cardiac paced) Peripheral Pulses: 2+: Radial (L), Radial (R) GI/Abdominal: Normal Bowel Sounds, Soft, Non-Tender (Female) Exam: Deferred Rectal (Female) Exam: Deferred Back Exam: Normal Inspection, Full Range of Motion, NT Extremities: Normal Inspection, Normal Range of Motion, Non-Tender, Normal Capillary Refill, No Pedal Edema Neurological: Alert, Oriented, CN II-XII Intact, Normal Cognition, Normal Gait, Normal Reflexes, No Motor/Sensory Deficits, Other (Unsure of date) Psychiatric: Normal Affect, Normal Mood Skin Exam: Warm, Dry, Intact, Normal Color, No Rash Lymphatic: No Adenopathy Course - Vital Signs Last Recorded V/S: Last Vital Signs Temp 97.1 F 09/17/19 21:12 Pulse 78 09/17/19 21:12 Resp 16 09/17/19 21:12 BP 111/67 09/17/19 21:12 Pulse Ox 98 09/17/19 21:12 - Orders/Labs/Meds Orders: Active Orders 24 hr Category Date Time Status Blood Glucose Check, Bedside [RC] ONETIME Care 09/17/19 21:18 Active Blood Glucose Check, Bedside [RC] ONETIME Care 09/17/19 22:26 Active EKG Documentation Completion [RC] STAT Care 09/17/19 21:17 Active Chest 1V Frontal [CR] Stat Exams 09/17/19 21:17 Taken Head wo Cont [CT] Stat Exams 09/17/19 21:18 Taken CULTURE BLOOD [BC] Stat Lab 09/17/19 21:30 Received CULTURE BLOOD [BC] Stat Lab 09/17/19 21:45 Received DRUG SCREEN URINE BIORAD [URCHEM] Stat Lab 09/17/19 21:18 Ordered UA RFX MICHELET AND CULT IF INDIC [URIN] Stat Lab 09/17/19 21:17 Ordered Blood Culture x2 Reflex Set [OM.PC] Stat Oth 09/17/19 21:18 Ordered Labs: Laboratory Tests 09/17/19 09/17/19 09/17/19 Range/Units 21:45 21:45 21:45 WBC 4.8 L (5.0-10.0) 10^3/uL RBC 3.43 L (4.2-5.4) 10^6/uL Hgb 11.8 L D (12.0-16.0) g/dL Hct 34.4 L (37.0-47.0) % MCV 100.3 H D (80-100) fL MCH 34.4 H (27.0-34.0) pg MCHC 34.3 (33.0-35.0) g/dL Plt Count 135 L (150-450) 10^3/uL Neut % (Auto) 72.7 (42.2-75.2) % Lymph % (Auto) 8.6 L (20.5-50.1) % [place] % (Auto) 16.0 H (2-8) % Eos % (Auto) 2.5 (1.0-3.0) % Baso % (Auto) 0.2 (0.0-1.0) % PT 22.9 H D (9.0-12.0) SEC INR 2.3 H (0.9-1.2) Sodium 138 (135-145) mmol/L Potassium 3.2 L (3.6-5.0) mmol/L Chloride 103 (101-111) mmol/L Carbon Dioxide 28.0 (21.0-31.0) mmol/L Anion Gap 10.2 BUN 17 (7-18) mg/dL Creatinine 0.8 (0.6-1.3) mg/dL Est Cr Clr Drug Dosing 50.85 mL/min Estimated GFR (MDRD) > 60 BUN/Creatinine Ratio 21.25 Glucose 59 L (74-105) mg/dL Lactic Acid (0.5-2.0) mmol/L Calcium 8.4 (8.4-10.2) mg/dl Total Bilirubin 1.2 H (0.2-1.0) mg/dL AST 27 (10-42) IU/L ALT 26 (10-60) IU/L Alkaline Phosphatase 81 (42-121) IU/L Troponin I 0.03 H* (0.00-0.02) ng/ml Total Protein 5.8 L (6.7-8.2) g/dl Albumin 3.2 (3.2-5.5) g/dl Globulin 2.6 Albumin/Globulin Ratio 1.23 Ethyl Alcohol < 5 mg/dL 09/17/19 Range/Units 21:45 WBC (5.0-10.0) 10^3/uL RBC (4.2-5.4) 10^6/uL Hgb (12.0-16.0) g/dL Hct (37.0-47.0) % MCV (80-100) fL MCH (27.0-34.0) pg MCHC (33.0-35.0) g/dL Plt Count (150-450) 10^3/uL Neut % (Auto) (42.2-75.2) % Lymph % (Auto) (20.5-50.1) % [place] % (Auto) (2-8) % Eos % (Auto) (1.0-3.0) % Baso % (Auto) (0.0-1.0) % PT (9.0-12.0) SEC INR (0.9-1.2) Sodium (135-145) mmol/L Potassium (3.6-5.0) mmol/L Chloride (101-111) mmol/L Carbon Dioxide (21.0-31.0) mmol/L Anion Gap BUN (7-18) mg/dL Creatinine (0.6-1.3) mg/dL Est Cr Clr Drug Dosing mL/min Estimated GFR (MDRD) BUN/Creatinine Ratio Glucose (74-105) mg/dL Lactic Acid 1.2 (0.5-2.0) mmol/L Calcium (8.4-10.2) mg/dl Total Bilirubin (0.2-1.0) mg/dL AST (10-42) IU/L ALT (10-60) IU/L Alkaline Phosphatase (42-121) IU/L Troponin I (0.00-0.02) ng/ml Total Protein (6.7-8.2) g/dl Albumin (3.2-5.5) g/dl Globulin Albumin/Globulin Ratio Ethyl Alcohol mg/dL - Radiology Interpretation Free Text/Narrative:: Chest xray: FINDINGS: Tubes, catheters and devices: There is stable positioning a pacemaker placed via the left subclavian vein. Lungs: See Heart/mediastinum Finding. Pleural space: Unremarkable. No pleural effusion. No pneumothorax. Heart/Mediastinum: The cardiac silhouette is at the upper limits of normal. There are a few linear opacities present in the lower hemithoraces and there is mild indistinctness of the pulmonary vasculature, findings could represent mild pulmonary edema. Bones/joints: Unremarkable. IMPRESSION: Mildly prominent cardiac silhouette, mild indistinctness of the pulmonary vasculature and a few linear opacities present in the lower hemithoraces could represent mild pulmonary edema. Thank you for allowing us to participate in the care of your patient. Dictated and Authenticated by: Rik Velazquez MD Head CT wo contrast: FINDINGS: Brain: There is focal hypoattenuation seen within the left basal ganglia likely representing a chronic lacunar infarction. Hypoattenuation seen in the junction of the internal and external capsule on the right compatible with a chronic lacunar infarction as well. Ventricles: Normal. No ventriculomegaly. Bones/joints: Unremarkable. No acute fracture. Sinuses: Visualized sinuses are unremarkable. No fluid levels. Mastoid air cells: Visualized mastoid air cells are well aerated. Soft tissues: Unremarkable. IMPRESSION: There are no acute intracranial findings. Thank you for allowing us to participate in the care of your patient. Dictated and Authenticated by: Rik Velazquez MD 09/17/2019 10:10 PM Central Time ([place] & [place]) See rad report - Re-Assessments/Exams Free Text/Narrative Re-Assessment/Exam: 09/17/19 22:55 Patient case discussed with Dr. Santoyo who agreed to accept the patient for observation admission. Departure - Departure Time of Disposition: 22:56 Disposition: Refer to Observation Reason for Transfer *Q: Other Condition: Fair Clinical Impression: Hypoglycemia, Acute cognitive decline Multiple myeloma Qualifiers: Multiple myeloma remission status: not in remission Qualified Code(s): C90.00 - Multiple myeloma not having achieved remission Forms: ED Department Discharge Sepsis Event Note - Focused Exam Vital Signs: Vital Signs Temp Pulse Resp BP Pulse Ox 09/17/19 21:12 97.1 F 78 16 111/67 98 Date Exam was Performed: 09/17/19 Time Exam was Performed: 22:55 - My Orders Last 24 Hours: My Active Orders 09/17/19 21:17 EKG Documentation Completion [RC] STAT Chest 1V Frontal [CR] Stat UA RFX MICHELET AND CULT IF INDIC [URIN] Stat 09/17/19 21:18 Blood Glucose Check, Bedside [RC] ONETIME Head wo Cont [CT] Stat DRUG SCREEN URINE BIORAD [URCHEM] Stat Blood Culture x2 Reflex Set [OM.PC] Stat 09/17/19 21:30 CULTURE BLOOD [BC] Stat 09/17/19 21:45 CULTURE BLOOD [BC] Stat 09/17/19 22:26 Blood Glucose Check, Bedside [RC] ONETIME - Assessment/Plan Last 24 Hours: My Active Orders 09/17/19 21:17 EKG Documentation Completion [RC] STAT Chest 1V Frontal [CR] Stat UA RFX MICHELET AND CULT IF INDIC [URIN] Stat 09/17/19 21:18 Blood Glucose Check, Bedside [RC] ONETIME Head wo Cont [CT] Stat DRUG SCREEN URINE BIORAD [URCHEM] Stat Blood Culture x2 Reflex Set [OM.PC] Stat 09/17/19 21:30 CULTURE BLOOD [BC] Stat 09/17/19 21:45 CULTURE BLOOD [BC] Stat 09/17/19 22:26 Blood Glucose Check, Bedside [RC] ONETIME
[2019-09-17 22:14] LABS: ANION GAP 10.2; CHLORIDE,CL 103 mmol/L (101-111); SODIUM,NA 138 mmol/L (135-145)
[2019-09-17] MEDS ORDERED: 50% Dextrose in Water 50 ML Syringe IVPUSH PRN (22:57)
[2019-09-17] MEDS ORDERED: Dextrose 5%-0.45% NaCl 1,000 ML IV SCH (23:00)
[2019-09-17] MEDS ORDERED: Acetaminophen/HYDROcodone 325-10 MG Tab PO PRN (23:05)
[2019-09-17] MEDS ORDERED: Non-Formulary Medication 1 Each (Prochlorperazine [Compazine] 10 MG) PO PRN (23:05)
[2019-09-17] MEDS ORDERED: Loperamide 2 MG Cap PO PRN ×2 (23:05→23:30)
[2019-09-17] MEDS ORDERED: Prochlorperazine 5 MG Tab PO PRN (23:45)
[2019-09-18] MEDS ORDERED: Sodium Chloride 0.9% 10 ML Syringe FLUSH PRN (02:07)
[2019-09-18] MEDS ORDERED: Dextrose 10% in Water 500 ML IV ONE ×2 (03:59→19:18)
[2019-09-18] MEDS: 50% Dextrose in Water 50 ML Syringe IVPUSH PRN ×2 (04:00→05:40)
[2019-09-18] MEDS ORDERED: Dextrose 10% in Water 500 ML ONE (04:24)
[2019-09-18] MEDS ORDERED: Heparin Sodium 5,000 Units/ML Vial SUBCUT SCH (06:00)
[2019-09-18] MEDS ORDERED: Aspirin 81 MG Tab.EC PO SCH (09:00)
[2019-09-18] MEDS ORDERED: Non-Formulary Medication 1 Each (Metoprolol Succinate [Toprol Xl 100mg] 100 MG) PO SCH (09:00)
[2019-09-18] MEDS ORDERED: ACYCLOVIR 400 MG PO SCH (09:00)
[2019-09-18] MEDS ORDERED: Isosorbide Mononitrate 60 MG Tab.ER PO SCH (09:00)
[2019-09-18] MEDS ORDERED: Non-Formulary Medication 1 Each (Potassium Chloride [Potassium Chloride] 20 MEQ) PO SCH (09:00)
[2019-09-18] MEDS ORDERED: Pantoprazole 40 MG Tab.CR PO SCH (09:00)
[2019-09-18] MEDS ORDERED: Non-Formulary Medication 1 Each (Amlodipine [Norvasc] 10 MG) PO SCH (09:00)
[2019-09-18] MEDS ORDERED: Potassium Chloride 10 MEQ Tab.ER PO ONE (09:20)
[2019-09-18] MEDS: Aspirin 81 MG Tab.EC PO SCH (09:57)
[2019-09-18] MEDS: Pantoprazole 40 MG Tab.CR PO SCH (09:57)
[2019-09-18] MEDS: Isosorbide Mononitrate 60 MG Tab.ER PO SCH (09:58)
[2019-09-18] MEDS: Metoprolol Succinate 50 MG Tab.ER PO SCH ×2 (09:58→21:02)
[2019-09-18] MEDS: Acyclovir 200 MG Cap PO SCH ×2 (09:58→21:01)
[2019-09-18] MEDS: amLODIPine 5 MG Tab PO SCH (09:59)
[2019-09-18] MEDS: Potassium Chloride 10 MEQ Tab.ER PO SCH ×2 (10:03→21:01)
[2019-09-18] MEDS ORDERED: 50% Dextrose in Water 50 ML Syringe IVPUSH ONE (10:13)
--- NOTE | 2019-09-18 11:22 | PCM.HP ---
H&P History of Present Illness - General Date of Service: 09/18/19 Admit Problem/Dx: Admission Diagnosis/Problem Admission Diagnosis/Problem Hypoglycemia associated with diabetes Source of Information: EMS Notes Reviewed, Family, Old Records, Provider - History of Present Illness Initial Comments - Free Text/Narative: She is a 79-year-old female with medical history of multiple myeloma, hypertension, atrial fibrillation, on chronic anticoagulation, coronary artery disease, diabetes mellitus type 2 on oral hypoglycemic agent. The patient was found by family poorly responsive and they proceeded to call for emergency medical services. Patient was noted to be hypoglycemic blood sugar of 30. She was subsequently transferred to the emergency room. In the ER patient was given dextrose but has continued to be hypoglycemic. She'll be admitted to the hospital. Family also stated that patient has been having significant relative decline in the past 2 weeks. She has not been able to take care of herself and has not been taking her medications correctly - Related Data Allergies/Adverse Reactions: Allergies Allergy/AdvReac Type Severity Reaction Status Date / Time etodolac [Etodolac] Allergy Hives Verified 09/18/19 00:59 nadolol Allergy Rash Verified 09/18/19 00:59 niacin Allergy Rash Verified 09/18/19 00:59 spironolactone Allergy Fatigue Verified 09/18/19 00:59 Home Medications: Home Meds Glimepiride [Amaryl] 2 mg PO DAILY 10/01/13 [History] Hydrocodone/Acetaminophen [[place] 10-325] 1 tab PO Q6HR PRN 10/01/13 [History] Isosorbide Mononitrate [Imdur] 60 mg PO DAILY 10/01/13 [History] Lisinopril 5 mg PO DAILY 10/01/13 [History] Magnesium Oxide 250 mg PO ASDIRECTED 10/01/13 [History] Metoprolol Succinate [Toprol XL 100mg] 100 mg PO BID 10/01/13 [History] Multivitamin [Multivitamins] 1 each PO DAILY 10/01/13 [History] Nitroglycerin [Nitrostat] 0.4 mg SL ASDIRECTED PRN 10/01/13 [History] Potassium Chloride 20 meq PO BID 10/01/13 [History] atorvaSTATin [Lipitor] 40 mg PO BEDTIME 10/01/13 [History] hydroCHLOROthiazide [Hydrochlorothiazide] 25 mg PO DAILY 10/01/13 [History] metFORMIN [Glucophage] 500 mg PO BID 10/01/13 [History] Aspirin [Ecotrin EC] 81 mg PO DAILY 10/23/16 [History] Ergocalciferol (Vitamin D2) [Vitamin D] 400 unit PO DAILY 10/23/16 [History] Loperamide [Imodium] 1 tab PO ASDIRECTED PRN 10/23/16 [History] Warfarin [Coumadin] 2.5 mg PO ASDIRECTED 10/23/16 [History] amLODIPine [Norvasc] 10 mg PO DAILY 10/23/16 [History] Calcium Carbonate/Vitamin D3 [Calcium 600 + Vit D Tablet] 1 tab PO DAILY [History] Ferrous Sulfate [Iron] 325 mg PO DAILY 02/21/17 [History] Pantoprazole Sodium [Protonix] 1 tab PO DAILY 02/21/17 [History] Acyclovir [Zovirax] 400 mg PO BID 09/17/19 [History] Lenalidomide [Revlimid] 25 mg PO ASDIRECTED 09/17/19 [History] Lidocaine 5% [Lidoderm 5%] 1 patch TOP DAILY 09/17/19 [History] Ondansetron [Zofran] 8 mg PO Q8H PRN 09/17/19 [History] Prochlorperazine [Compazine] 10 mg PO Q6H PRN 09/17/19 [History] Solifenacin Succinate 10 mg PO DAILY 09/17/19 [History] Sulfamethoxazole/Trimethoprim [Sulfamethoxazole-Tmp Ds Tablet] 1 each PO ASDIRECTED 09/17/19 [History] Warfarin [Coumadin] 1.5 mg PO DAILY 09/17/19 [History] fentaNYL [Duragesic] 12 mcg TD ASDIRECTED 09/17/19 [History] Past Medical History HEENT History: Reports: Hard of Hearing, Impaired Vision Other HEENT History: wears glasses Cardiovascular History: Reports: Afib, Arrhythmia, CAD, Hypertension, Pacemaker , PTCA, Stents Respiratory History: Reports: Pneumonia, Recurrent Gastrointestinal History: Reports: GERD, Irritable Bowel Syndrome Genitourinary History: Reports: None Other Genitourinary History: frequency, nocturia, bladder cancer [employer]REET [employer] History: Reports: Spontaneous Musculoskeletal History: Reports: Arthritis, Back Pain, Chronic Neurological History: Reports: None Psychiatric History: Reports: None Endocrine/Metabolic History: Reports: Diabetes, Type II Hematologic History: Reports: Iron Deficiency Immunologic History: Reports: None Oncologic (Cancer) History: Reports: Bladder Dermatologic History: Reports: None - Infectious Disease History Infectious Disease History: Reports: Chicken Pox, Measles - Past Surgical History Head Surgeries/Procedures: Reports: None HEENT Surgical History: Reports: None Cardiovascular Surgical History: Reports: Pacer Respiratory Surgical History: Reports: None GI Surgical History: Reports: Colonoscopy, EGD Female Surgical History: Reports: Breast Biopsy Other Female Surgeries/Procedures: breast cyst Neurological Surgical History: Reports: None Social & Family History - Family History Family Medical History: Noncontributory - Tobacco Use Smoking Status *Q: Former Smoker Years of Tobacco use: 10 Packs/Tins Daily: 0.5 Used Tobacco, but Quit: Yes Month/Year Tobacco Last Used: 08/22/87 Second Hand Smoke Exposure: No - Caffeine Use Caffeine Use: Reports: None - Recreational Drug Use Recreational Drug Use: No - Living Situation & Occupation Living situation: Reports: Alone Occupation: Employed H&P Review of Systems - Review of Systems: Review Of Systems: See Below General: Reports: Weakness, Fatigue Pulmonary: Reports: No Symptoms Cardiovascular: Reports: No Symptoms Gastrointestinal: Reports: No Symptoms Genitourinary: Reports: No Symptoms Musculoskeletal: Reports: No Symptoms Skin: Reports: No Symptoms Exam - Exam Exam: See Below - Vital Signs Vital Signs: Last Vital Signs Temp 37.6 C 09/18/19 07:00 Pulse 70 09/18/19 09:58 Resp 18 09/18/19 07:00 BP 110/58 L 09/18/19 09:59 Pulse Ox 98 09/18/19 07:00 Weight: 54.295 kg - Exam General: Cooperative, Other (Drowsy but answers questions) Neck: Supple, Trachea Midline, 2 Lungs: Clear to Auscultation, Normal Respiratory Effort Cardiovascular: Regular Rate, Regular Rhythm GI/Abdominal Exam: Normal Bowel Sounds, Soft, Non-Tender, No Organomegaly, No Distention, No Abnormal Bruit, No Mass, Pelvis Stable Extremities: Normal Inspection, Normal Range of Motion, Non-Tender, No Pedal Edema, Normal Capillary Refill - Patient Data Lab Results Last 24 hrs: Laboratory Results - last 24 hr 09/17/19 09/17/19 09/17/19 Range/Units 21:30 21:45 21:45 WBC 4.8 L (5.0-10.0) 10^3/uL RBC 3.43 L (4.2-5.4) 10^6/uL Hgb 11.8 L D (12.0-16.0) g/dL Hct 34.4 L (37.0-47.0) % MCV 100.3 H D (80-100) fL MCH 34.4 H (27.0-34.0) pg MCHC 34.3 (33.0-35.0) g/dL Plt Count 135 L (150-450) 10^3/uL Neut % (Auto) 72.7 (42.2-75.2) % Lymph % (Auto) 8.6 L (20.5-50.1) % [place] % (Auto) 16.0 H (2-8) % Eos % (Auto) 2.5 (1.0-3.0) % Baso % (Auto) 0.2 (0.0-1.0) % PT 22.9 H D (9.0-12.0) SEC INR 2.3 H (0.9-1.2) Sodium (135-145) mmol/L Potassium (3.6-5.0) mmol/L Chloride (101-111) mmol/L Carbon Dioxide (21.0-31.0) mmol/L Anion Gap BUN (7-18) mg/dL Creatinine (0.6-1.3) mg/dL Est Cr Clr Drug Dosing mL/min Estimated GFR (MDRD) BUN/Creatinine Ratio Glucose (74-105) mg/dL POC Glucose 69 L (83-110) mg/dl Lactic Acid (0.5-2.0) mmol/L Calcium (8.4-10.2) mg/dl Total Bilirubin (0.2-1.0) mg/dL AST (10-42) IU/L ALT (10-60) IU/L Alkaline Phosphatase (42-121) IU/L Troponin I (0.00-0.02) ng/ml Total Protein (6.7-8.2) g/dl Albumin (3.2-5.5) g/dl Globulin Albumin/Globulin Ratio Ethyl Alcohol mg/dL 09/17/19 09/17/19 09/17/19 Range/Units 21:45 21:45 22:28 WBC (5.0-10.0) 10^3/uL RBC (4.2-5.4) 10^6/uL Hgb (12.0-16.0) g/dL Hct (37.0-47.0) % MCV (80-100) fL MCH (27.0-34.0) pg MCHC (33.0-35.0) g/dL Plt Count (150-450) 10^3/uL Neut % (Auto) (42.2-75.2) % Lymph % (Auto) (20.5-50.1) % [place] % (Auto) (2-8) % Eos % (Auto) (1.0-3.0) % Baso % (Auto) (0.0-1.0) % PT (9.0-12.0) SEC INR (0.9-1.2) Sodium 138 (135-145) mmol/L Potassium 3.2 L (3.6-5.0) mmol/L Chloride 103 (101-111) mmol/L Carbon Dioxide 28.0 (21.0-31.0) mmol/L Anion Gap 10.2 BUN 17 (7-18) mg/dL Creatinine 0.8 (0.6-1.3) mg/dL Est Cr Clr Drug Dosing 50.85 mL/min Estimated GFR (MDRD) > 60 BUN/Creatinine Ratio 21.25 Glucose 59 L (74-105) mg/dL POC Glucose 58 L (83-110) mg/dl Lactic Acid 1.2 (0.5-2.0) mmol/L Calcium 8.4 (8.4-10.2) mg/dl Total Bilirubin 1.2 H (0.2-1.0) mg/dL AST 27 (10-42) IU/L ALT 26 (10-60) IU/L Alkaline Phosphatase 81 (42-121) IU/L Troponin I 0.03 H* (0.00-0.02) ng/ml Total Protein 5.8 L (6.7-8.2) g/dl Albumin 3.2 (3.2-5.5) g/dl Globulin 2.6 Albumin/Globulin Ratio 1.23 Ethyl Alcohol < 5 mg/dL 09/17/19 09/18/19 09/18/19 Range/Units 23:14 00:28 02:23 WBC (5.0-10.0) 10^3/uL RBC (4.2-5.4) 10^6/uL Hgb (12.0-16.0) g/dL Hct (37.0-47.0) % MCV (80-100) fL MCH (27.0-34.0) pg MCHC (33.0-35.0) g/dL Plt Count (150-450) 10^3/uL Neut % (Auto) (42.2-75.2) % Lymph % (Auto) (20.5-50.1) % [place] % (Auto) (2-8) % Eos % (Auto) (1.0-3.0) % Baso % (Auto) (0.0-1.0) % PT (9.0-12.0) SEC INR (0.9-1.2) Sodium (135-145) mmol/L Potassium (3.6-5.0) mmol/L Chloride (101-111) mmol/L Carbon Dioxide (21.0-31.0) mmol/L Anion Gap BUN (7-18) mg/dL Creatinine (0.6-1.3) mg/dL Est Cr Clr Drug Dosing mL/min Estimated GFR (MDRD) BUN/Creatinine Ratio Glucose 47 L* (74-105) mg/dL POC Glucose 41 L* 38 L* (83-110) mg/dl Lactic Acid (0.5-2.0) mmol/L Calcium (8.4-10.2) mg/dl Total Bilirubin (0.2-1.0) mg/dL AST (10-42) IU/L ALT (10-60) IU/L Alkaline Phosphatase (42-121) IU/L Troponin I (0.00-0.02) ng/ml Total Protein (6.7-8.2) g/dl Albumin (3.2-5.5) g/dl Globulin Albumin/Globulin Ratio Ethyl Alcohol mg/dL 09/18/19 09/18/19 09/18/19 Range/Units 03:56 04:29 05:01 WBC (5.0-10.0) 10^3/uL RBC (4.2-5.4) 10^6/uL Hgb (12.0-16.0) g/dL Hct (37.0-47.0) % MCV (80-100) fL MCH (27.0-34.0) pg MCHC (33.0-35.0) g/dL Plt Count (150-450) 10^3/uL Neut % (Auto) (42.2-75.2) % Lymph % (Auto) (20.5-50.1) % [place] % (Auto) (2-8) % Eos % (Auto) (1.0-3.0) % Baso % (Auto) (0.0-1.0) % PT (9.0-12.0) SEC INR (0.9-1.2) Sodium (135-145) mmol/L Potassium (3.6-5.0) mmol/L Chloride (101-111) mmol/L Carbon Dioxide (21.0-31.0) mmol/L Anion Gap BUN (7-18) mg/dL Creatinine (0.6-1.3) mg/dL Est Cr Clr Drug Dosing mL/min Estimated GFR (MDRD) BUN/Creatinine Ratio Glucose (74-105) mg/dL POC Glucose 35 L* 100 70 L (83-110) mg/dl Lactic Acid (0.5-2.0) mmol/L Calcium (8.4-10.2) mg/dl Total Bilirubin (0.2-1.0) mg/dL AST (10-42) IU/L ALT (10-60) IU/L Alkaline Phosphatase (42-121) IU/L Troponin I (0.00-0.02) ng/ml Total Protein (6.7-8.2) g/dl Albumin (3.2-5.5) g/dl Globulin Albumin/Globulin Ratio Ethyl Alcohol mg/dL 09/18/19 09/18/19 09/18/19 Range/Units 05:35 06:05 10:01 WBC (5.0-10.0) 10^3/uL RBC (4.2-5.4) 10^6/uL Hgb (12.0-16.0) g/dL Hct (37.0-47.0) % MCV (80-100) fL MCH (27.0-34.0) pg MCHC (33.0-35.0) g/dL Plt Count (150-450) 10^3/uL Neut % (Auto) (42.2-75.2) % Lymph % (Auto) (20.5-50.1) % [place] % (Auto) (2-8) % Eos % (Auto) (1.0-3.0) % Baso % (Auto) (0.0-1.0) % PT (9.0-12.0) SEC INR (0.9-1.2) Sodium (135-145) mmol/L Potassium (3.6-5.0) mmol/L Chloride (101-111) mmol/L Carbon Dioxide (21.0-31.0) mmol/L Anion Gap BUN (7-18) mg/dL Creatinine (0.6-1.3) mg/dL Est Cr Clr Drug Dosing mL/min Estimated GFR (MDRD) BUN/Creatinine Ratio Glucose (74-105) mg/dL POC Glucose 45 L* 183 H 37 L* (83-110) mg/dl Lactic Acid (0.5-2.0) mmol/L Calcium (8.4-10.2) mg/dl Total Bilirubin (0.2-1.0) mg/dL AST (10-42) IU/L ALT (10-60) IU/L Alkaline Phosphatase (42-121) IU/L Troponin I (0.00-0.02) ng/ml Total Protein (6.7-8.2) g/dl Albumin (3.2-5.5) g/dl Globulin Albumin/Globulin Ratio Ethyl Alcohol mg/dL 09/18/19 Range/Units 11:02 WBC (5.0-10.0) 10^3/uL RBC (4.2-5.4) 10^6/uL Hgb (12.0-16.0) g/dL Hct (37.0-47.0) % MCV (80-100) fL MCH (27.0-34.0) pg MCHC (33.0-35.0) g/dL Plt Count (150-450) 10^3/uL Neut % (Auto) (42.2-75.2) % Lymph % (Auto) (20.5-50.1) % [place] % (Auto) (2-8) % Eos % (Auto) (1.0-3.0) % Baso % (Auto) (0.0-1.0) % PT (9.0-12.0) SEC INR (0.9-1.2) Sodium (135-145) mmol/L Potassium (3.6-5.0) mmol/L Chloride (101-111) mmol/L Carbon Dioxide (21.0-31.0) mmol/L Anion Gap BUN (7-18) mg/dL Creatinine (0.6-1.3) mg/dL Est Cr Clr Drug Dosing mL/min Estimated GFR (MDRD) BUN/Creatinine Ratio Glucose (74-105) mg/dL POC Glucose 92 (83-110) mg/dl Lactic Acid (0.5-2.0) mmol/L Calcium (8.4-10.2) mg/dl Total Bilirubin (0.2-1.0) mg/dL AST (10-42) IU/L ALT (10-60) IU/L Alkaline Phosphatase (42-121) IU/L Troponin I (0.00-0.02) ng/ml Total Protein (6.7-8.2) g/dl Albumin (3.2-5.5) g/dl Globulin Albumin/Globulin Ratio Ethyl Alcohol mg/dL Result Diagrams: 09/17/19 21:45 09/17/19 21:45 Problem List Initiated/Reviewed/Updated: Yes Orders Last 24hrs: Active Orders 24 hr Category Date Time Status Patient Status [ADT] Routine ADT 09/18/19 09:32 Active Blood Glucose Check, Bedside [RC] Q1H Care 09/18/19 04:00 Active Communication Order [RC] , Care 09/18/19 10:57 Active Diabetes Education [RC] Click to Edit Care 09/17/19 23:02 Active Intake and Output [RC] QSHIFT Care 09/17/19 22:59 Active Oxygen Therapy [RC] PRN Care 09/17/19 22:57 Active Peripheral IV Care [RC] , Care 09/18/19 02:08 Active Up ad Marisol [RC] ASDIRECTED Care 09/17/19 22:57 Active VTE/DVT Education [RC] PER UNIT ROUTINE Care 09/17/19 22:57 Active Vital Signs [RC] Q4H Care 09/17/19 22:57 Active OT Evaluation and Treatment [CONS] Routine Cons 09/17/19 22:57 Active PT Evaluation and Treatment [CONS] Routine Cons 09/17/19 22:57 Active BASIC METABOLIC PANEL,BMP [CHEM] AM Lab 09/19/19 05:11 Ordered CBC W/O DIFF,HEMOGRAM [HEME] AM Lab 09/19/19 05:11 Ordered CULTURE BLOOD [BC] Stat Lab 09/17/19 21:30 Received CULTURE BLOOD [BC] Stat Lab 09/17/19 21:45 Received DRUG SCREEN URINE BIORAD [URCHEM] Stat Lab 09/17/19 21:18 Ordered UA RFX MICHELET AND CULT IF INDIC [URIN] Stat Lab 09/17/19 21:17 Ordered Acetaminophen/HYDROcodone [[place] 325-10 MG] Med 09/17/19 23:30 Active 1 tab PO Q6HR PRN Acyclovir [Zovirax] Med 09/18/19 09:00 Active 400 mg PO BID Aspirin [Halfprin] Med 09/18/19 09:00 Active 81 mg PO DAILY Dextrose 50% in Water Med 09/17/19 22:57 Active 50 ml IVPUSH ONETIME PRN Dextrose 50% in Water Med 09/18/19 04:01 Active 50 ml IVPUSH ONETIME PRN Isosorbide Mononitrate [Imdur] Med 09/18/19 09:00 Active 60 mg PO DAILY Loperamide [Imodium] Med 09/17/19 23:30 Active 2 mg PO ASDIRECTED PRN Metoprolol Succinate [Toprol XL] Med 09/18/19 09:00 Active 100 mg PO BID Pantoprazole [ProTONIX] Med 09/18/19 09:00 Active 40 mg PO DAILY Potassium Chloride [Klor-Con 10] Med 09/18/19 09:00 Active 20 meq PO BID Prochlorperazine [Compazine] Med 09/17/19 23:45 Active 10 mg PO Q6H PRN Sodium Chloride 0.9% [Saline Flush] Med 09/18/19 02:07 Active 10 ml FLUSH ASDIRECTED PRN amLODIPine [Norvasc] Med 09/18/19 09:00 Active 10 mg PO DAILY atorvaSTATin [Lipitor] Med 09/18/19 21:00 Active 40 mg PO BEDTIME Blood Culture x2 Reflex Set [OM.PC] Stat Ot 09/17/19 21:18 Ordered Glucose Management Sub Q Reflex [OM.PC] Click To Edit Oth 09/17/19 22:57 Ordered Peripheral IV Insertion Adult [OM.PC] Routine Oth 09/18/19 02:07 Ordered Resuscitation Status Routine Resus Stat 09/17/19 22:57 Ordered Medication Orders Hydrocodone Bitart/Acetaminophen ([place] 325-10 Mg) 1 tab PO Q6HR PRN PRN Reason: Pain Acyclovir (Zovirax) 400 mg PO BID [facility] Last Admin: 09/18/19 09:58 Dose: 400 mg Amlodipine Besylate (Norvasc) 10 mg PO DAILY [facility] Last Admin: 09/18/19 09:59 Dose: 10 mg Aspirin (Halfprin) 81 mg PO DAILY [facility] Last Admin: 09/18/19 09:57 Dose: 81 mg Atorvastatin Calcium (Lipitor) 40 mg PO BEDTIME [facility] Dextrose/Water (Dextrose 50% In Water) 50 ml IVPUSH ONETIME PRN PRN Reason: Hypoglycemia Dextrose/Water (Dextrose 50% In Water) 50 ml IVPUSH ONETIME PRN PRN Reason: Blood Glucose Last Admin: 09/18/19 05:40 Dose: 50 ml Admin: 09/18/19 04:00 Dose: 50 ml Isosorbide Mononitrate (Imdur) 60 mg PO DAILY [facility] Last Admin: 09/18/19 09:58 Dose: 60 mg Loperamide HCl (Imodium) 2 mg PO ASDIRECTED PRN PRN Reason: Diarrhea Metoprolol Succinate (Toprol Xl) 100 mg PO BID [facility] Last Admin: 09/18/19 09:58 Dose: 100 mg Pantoprazole Sodium (Protonix) 40 mg PO DAILY [facility] Last Admin: 09/18/19 09:57 Dose: 40 mg Potassium Chloride (Klor-Con 10) 20 meq PO BID [facility] Last Admin: 09/18/19 10:03 Dose: 20 meq Prochlorperazine Maleate (Compazine) 10 mg PO Q6H PRN PRN Reason: Nausea Sodium Chloride (Saline Flush) 10 ml FLUSH ASDIRECTED PRN PRN Reason: Keep Vein Open Assessment/Plan Comment:: #. Acute encephalopathy Patient was found poorly responsive She was hypoglycemic and has continued to be intermittently hypoglycemic in the hospital. #. Hypoglycemia Her appetite has been poor Has not been eating well. Has been on oral hypoglycemic agent Amaryl. #. Hypokalemia Serum potassium is down to 3.2 #. Multiple myeloma Patient has been on Revlimid #. Atrial fibrillation/chronic anticoagulation On chronic Coumadin therapy INR is therapeutic at 2.3 #. Coronary artery disease Status post coronary stent placement No complaint of chest pain #. Hypertension Blood pressure is within acceptable limits Plan: Admit patient to medical floor Monitor blood sugar hourly Hold glimepiride Start intravenous dextrose 10% going at 100 mL an hour Consult physical therapy Consult occupational therapy Replace potassium deficit Family present at the bedside.
[2019-09-18] MEDS ORDERED: Dextrose 10% in Water 500 ML IV PRN (11:30)
[2019-09-18] MEDS ORDERED: 50% Dextrose in Water 50 ML Syringe IVPUSH PRN ×2 (12:01→12:23)
[2019-09-18] MEDS ORDERED: Warfarin 2.5 MG Tab PO ONE (14:00)
[2019-09-18] MEDS: Dextrose 10% in Water 500 ML IV ONE (16:09)
[2019-09-18] MEDS ORDERED: Non-Formulary Medication 1 Each (Atorvastatin [Lipitor] 40 MG) PO SCH (21:00)
[2019-09-18] MEDS: atorvaSTATin 20 MG Tab PO SCH (21:02)
[2019-09-18] MEDS: Acetaminophen/HYDROcodone 325-10 MG Tab PO PRN (21:02)
[2019-09-18] MEDS ORDERED: Sodium Chloride 0.9% 500 ML IV SCH (21:15)
[2019-09-19] MEDS: Dextrose 10% in Water 500 ML IV ONE (02:18)
[2019-09-19 07:13] LABS: CHLORIDE,CL 103 mmol/L (101-111); SODIUM,NA 136 mmol/L (135-145)
[2019-09-19] MEDS: Pantoprazole 40 MG Tab.CR PO SCH (08:41)
[2019-09-19] MEDS: Potassium Chloride 10 MEQ Tab.ER PO SCH ×2 (08:41→21:15)
[2019-09-19] MEDS: Aspirin 81 MG Tab.EC PO SCH (08:41)
[2019-09-19] MEDS: Acyclovir 200 MG Cap PO SCH ×2 (08:44→21:14)
--- NOTE | 2019-09-19 10:13 | PCM.PN ---
- General Info Date of Service: 09/19/19 Admission Dx/Problem (Free Text): Admission Diagnosis/Problem Admission Diagnosis/Problem Hypoglycemia associated with diabetes Subjective Update: Patient seen and examined today. She is still confused. Blood sugar >140 since today. Afebrile overnight. No complains. Functional Status: Reports: Tolerating Diet - Review of Systems General: Reports: No Symptoms HEENT: Reports: No Symptoms Pulmonary: Reports: No Symptoms Cardiovascular: Reports: No Symptoms Gastrointestinal: Reports: No Symptoms Genitourinary: Reports: No Symptoms Musculoskeletal: Reports: No Symptoms Skin: Reports: No Symptoms Neurological: Reports: Weakness Psychiatric: Reports: Confusion - Patient Data Vitals - Most Recent: Last Vital Signs Temp 98.1 F 09/19/19 07:55 Pulse 63 09/19/19 07:55 Resp 16 09/19/19 07:55 BP 99/48 L 09/19/19 07:55 Pulse Ox 97 09/19/19 07:55 Weight - Most Recent: 119 lb 11.2 oz I&O - Last 24 Hours: Intake & Output 09/18/19 09/19/19 09/19/19 22:59 06:59 14:59 Output Total 1050 Balance -1050 Lab Results Last 24 Hours: Laboratory Results - last 24 hr 09/18/19 09/18/19 09/18/19 Range/Units 11:02 11:58 12:40 WBC (5.0-10.0) 10^3/uL RBC (4.2-5.4) 10^6/uL Hgb (12.0-16.0) g/dL Hct (37.0-47.0) % MCV (80-100) fL MCH (27.0-34.0) pg MCHC (33.0-35.0) g/dL Plt Count (150-450) 10^3/uL PT 21.5 H (9.0-12.0) SEC INR 2.2 H (0.9-1.2) Sodium (135-145) mmol/L Potassium (3.6-5.0) mmol/L Chloride (101-111) mmol/L Carbon Dioxide (21.0-31.0) mmol/L Anion Gap BUN (7-18) mg/dL Creatinine (0.6-1.3) mg/dL Est Cr Clr Drug Dosing mL/min Estimated GFR (MDRD) Glucose (74-105) mg/dL POC Glucose 92 35 L* (83-110) mg/dl Calcium (8.4-10.2) mg/dl Urine Color (YELLOW) Urine Appearance (CLEAR) Urine pH (5.0-9.0) Ur Specific [place] (1.005-1.030) Urine Protein (NEGATIVE) Urine Glucose (UA) (NEGATIVE) Urine Ketones (NEGATIVE) Urine Occult Blood (NEGATIVE) Urine Nitrite (NEGATIVE) Urine Bilirubin (NEGATIVE) Urine Urobilinogen (0.2-1.0) mg/dL Ur Leukocyte Esterase (NEGATIVE) Urine Opiates Screen (NEGATIVE) Ur Oxycodone Screen (NEGATIVE) Urine Methadone Screen (NEGATIVE) Ur Barbiturates Screen (NEGATIVE) U Tricyclic Antidepress (NEGATIVE) Ur Phencyclidine Scrn (NEGATIVE) Ur Amphetamine Screen (NEGATIVE) U Methamphetamines Scrn (NEGATIVE) Urine MDMA Screen (NEGATIVE) U Benzodiazepines Scrn (NEGATIVE) Urine Cocaine Screen (NEGATIVE) U Marijuana (THC) Screen (NEGATIVE) 09/18/19 09/18/19 09/18/19 Range/Units 12:59 13:59 14:59 WBC (5.0-10.0) 10^3/uL RBC (4.2-5.4) 10^6/uL Hgb (12.0-16.0) g/dL Hct (37.0-47.0) % MCV (80-100) fL MCH (27.0-34.0) pg MCHC (33.0-35.0) g/dL Plt Count (150-450) 10^3/uL PT (9.0-12.0) SEC INR (0.9-1.2) Sodium (135-145) mmol/L Potassium (3.6-5.0) mmol/L Chloride (101-111) mmol/L Carbon Dioxide (21.0-31.0) mmol/L Anion Gap BUN (7-18) mg/dL Creatinine (0.6-1.3) mg/dL Est Cr Clr Drug Dosing mL/min Estimated GFR (MDRD) Glucose (74-105) mg/dL POC Glucose 112 H 85 102 (83-110) mg/dl Calcium (8.4-10.2) mg/dl Urine Color (YELLOW) Urine Appearance (CLEAR) Urine pH (5.0-9.0) Ur Specific [place] (1.005-1.030) Urine Protein (NEGATIVE) Urine Glucose (UA) (NEGATIVE) Urine Ketones (NEGATIVE) Urine Occult Blood (NEGATIVE) Urine Nitrite (NEGATIVE) Urine Bilirubin (NEGATIVE) Urine Urobilinogen (0.2-1.0) mg/dL Ur Leukocyte Esterase (NEGATIVE) Urine Opiates Screen (NEGATIVE) Ur Oxycodone Screen (NEGATIVE) Urine Methadone Screen (NEGATIVE) Ur Barbiturates Screen (NEGATIVE) U Tricyclic Antidepress (NEGATIVE) Ur Phencyclidine Scrn (NEGATIVE) Ur Amphetamine Screen (NEGATIVE) U Methamphetamines Scrn (NEGATIVE) Urine MDMA Screen (NEGATIVE) U Benzodiazepines Scrn (NEGATIVE) Urine Cocaine Screen (NEGATIVE) U Marijuana (THC) Screen (NEGATIVE) 09/18/19 09/18/19 09/18/19 Range/Units 16:08 17:01 17:50 WBC (5.0-10.0) 10^3/uL RBC (4.2-5.4) 10^6/uL Hgb (12.0-16.0) g/dL Hct (37.0-47.0) % MCV (80-100) fL MCH (27.0-34.0) pg MCHC (33.0-35.0) g/dL Plt Count (150-450) 10^3/uL PT (9.0-12.0) SEC INR (0.9-1.2) Sodium (135-145) mmol/L Potassium (3.6-5.0) mmol/L Chloride (101-111) mmol/L Carbon Dioxide (21.0-31.0) mmol/L Anion Gap BUN (7-18) mg/dL Creatinine (0.6-1.3) mg/dL Est Cr Clr Drug Dosing mL/min Estimated GFR (MDRD) Glucose (74-105) mg/dL POC Glucose 82 L 80 L (83-110) mg/dl Calcium (8.4-10.2) mg/dl Urine Color Yellow (YELLOW) Urine Appearance Clear (CLEAR) Urine pH 5.5 (5.0-9.0) Ur Specific [place] <= 1.005 (1.005-1.030) Urine Protein Negative (NEGATIVE) Urine Glucose (UA) 100 H (NEGATIVE) Urine Ketones Negative (NEGATIVE) Urine Occult Blood Negative (NEGATIVE) Urine Nitrite Negative (NEGATIVE) Urine Bilirubin Negative (NEGATIVE) Urine Urobilinogen 0.2 (0.2-1.0) mg/dL Ur Leukocyte Esterase Negative (NEGATIVE) Urine Opiates Screen (NEGATIVE) Ur Oxycodone Screen (NEGATIVE) Urine Methadone Screen (NEGATIVE) Ur Barbiturates Screen (NEGATIVE) U Tricyclic Antidepress (NEGATIVE) Ur Phencyclidine Scrn (NEGATIVE) Ur Amphetamine Screen (NEGATIVE) U Methamphetamines Scrn (NEGATIVE) Urine MDMA Screen (NEGATIVE) U Benzodiazepines Scrn (NEGATIVE) Urine Cocaine Screen (NEGATIVE) U Marijuana (THC) Screen (NEGATIVE) 09/18/19 09/18/19 09/18/19 Range/Units 17:50 19:23 20:56 WBC (5.0-10.0) 10^3/uL RBC (4.2-5.4) 10^6/uL Hgb (12.0-16.0) g/dL Hct (37.0-47.0) % MCV (80-100) fL MCH (27.0-34.0) pg MCHC (33.0-35.0) g/dL Plt Count (150-450) 10^3/uL PT (9.0-12.0) SEC INR (0.9-1.2) Sodium (135-145) mmol/L Potassium (3.6-5.0) mmol/L Chloride (101-111) mmol/L Carbon Dioxide (21.0-31.0) mmol/L Anion Gap BUN (7-18) mg/dL Creatinine (0.6-1.3) mg/dL Est Cr Clr Drug Dosing mL/min Estimated GFR (MDRD) Glucose (74-105) mg/dL POC Glucose 110 101 (83-110) mg/dl Calcium (8.4-10.2) mg/dl Urine Color (YELLOW) Urine Appearance (CLEAR) Urine pH (5.0-9.0) Ur Specific [place] (1.005-1.030) Urine Protein (NEGATIVE) Urine Glucose (UA) (NEGATIVE) Urine Ketones (NEGATIVE) Urine Occult Blood (NEGATIVE) Urine Nitrite (NEGATIVE) Urine Bilirubin (NEGATIVE) Urine Urobilinogen (0.2-1.0) mg/dL Ur Leukocyte Esterase (NEGATIVE) Urine Opiates Screen Negative (NEGATIVE) Ur Oxycodone Screen Negative (NEGATIVE) Urine Methadone Screen Negative (NEGATIVE) Ur Barbiturates Screen Negative (NEGATIVE) U Tricyclic Antidepress Negative (NEGATIVE) Ur Phencyclidine Scrn Negative (NEGATIVE) Ur Amphetamine Screen Negative (NEGATIVE) U Methamphetamines Scrn Negative (NEGATIVE) Urine MDMA Screen Negative (NEGATIVE) U Benzodiazepines Scrn Negative (NEGATIVE) Urine Cocaine Screen Negative (NEGATIVE) U Marijuana (THC) Screen Negative (NEGATIVE) 09/18/19 09/19/19 09/19/19 Range/Units 23:06 03:13 06:00 WBC 3.4 L (5.0-10.0) 10^3/uL RBC 2.92 L (4.2-5.4) 10^6/uL Hgb 10.1 L D (12.0-16.0) g/dL Hct 30.5 L (37.0-47.0) % MCV 104.5 H D (80-100) fL MCH 34.6 H (27.0-34.0) pg MCHC 33.1 (33.0-35.0) g/dL Plt Count 130 L (150-450) 10^3/uL PT (9.0-12.0) SEC INR (0.9-1.2) Sodium (135-145) mmol/L Potassium (3.6-5.0) mmol/L Chloride (101-111) mmol/L Carbon Dioxide (21.0-31.0) mmol/L Anion Gap BUN (7-18) mg/dL Creatinine (0.6-1.3) mg/dL Est Cr Clr Drug Dosing mL/min Estimated GFR (MDRD) Glucose (74-105) mg/dL POC Glucose 123 H 157 H (83-110) mg/dl Calcium (8.4-10.2) mg/dl Urine Color (YELLOW) Urine Appearance (CLEAR) Urine pH (5.0-9.0) Ur Specific [place] (1.005-1.030) Urine Protein (NEGATIVE) Urine Glucose (UA) (NEGATIVE) Urine Ketones (NEGATIVE) Urine Occult Blood (NEGATIVE) Urine Nitrite (NEGATIVE) Urine Bilirubin (NEGATIVE) Urine Urobilinogen (0.2-1.0) mg/dL Ur Leukocyte Esterase (NEGATIVE) Urine Opiates Screen (NEGATIVE) Ur Oxycodone Screen (NEGATIVE) Urine Methadone Screen (NEGATIVE) Ur Barbiturates Screen (NEGATIVE) U Tricyclic Antidepress (NEGATIVE) Ur Phencyclidine Scrn (NEGATIVE) Ur Amphetamine Screen (NEGATIVE) U Methamphetamines Scrn (NEGATIVE) Urine MDMA Screen (NEGATIVE) U Benzodiazepines Scrn (NEGATIVE) Urine Cocaine Screen (NEGATIVE) U Marijuana (THC) Screen (NEGATIVE) 09/19/19 09/19/19 09/19/19 Range/Units 06:00 06:00 06:16 WBC (5.0-10.0) 10^3/uL RBC (4.2-5.4) 10^6/uL Hgb (12.0-16.0) g/dL Hct (37.0-47.0) % MCV (80-100) fL MCH (27.0-34.0) pg MCHC (33.0-35.0) g/dL Plt Count (150-450) 10^3/uL PT 21.6 H (9.0-12.0) SEC INR 2.2 H (0.9-1.2) Sodium 136 (135-145) mmol/L Potassium 3.0 L (3.6-5.0) mmol/L Chloride 103 (101-111) mmol/L Carbon Dioxide 26.0 (21.0-31.0) mmol/L Anion Gap 10.0 BUN 8 (7-18) mg/dL Creatinine 0.8 (0.6-1.3) mg/dL Est Cr Clr Drug Dosing 50.48 mL/min Estimated GFR (MDRD) > 60 Glucose 147 H (74-105) mg/dL POC Glucose 177 H (83-110) mg/dl Calcium 7.4 L (8.4-10.2) mg/dl Urine Color (YELLOW) Urine Appearance (CLEAR) Urine pH (5.0-9.0) Ur Specific [place] (1.005-1.030) Urine Protein (NEGATIVE) Urine Glucose (UA) (NEGATIVE) Urine Ketones (NEGATIVE) Urine Occult Blood (NEGATIVE) Urine Nitrite (NEGATIVE) Urine Bilirubin (NEGATIVE) Urine Urobilinogen (0.2-1.0) mg/dL Ur Leukocyte Esterase (NEGATIVE) Urine Opiates Screen (NEGATIVE) Ur Oxycodone Screen (NEGATIVE) Urine Methadone Screen (NEGATIVE) Ur Barbiturates Screen (NEGATIVE) U Tricyclic Antidepress (NEGATIVE) Ur Phencyclidine Scrn (NEGATIVE) Ur Amphetamine Screen (NEGATIVE) U Methamphetamines Scrn (NEGATIVE) Urine MDMA Screen (NEGATIVE) U Benzodiazepines Scrn (NEGATIVE) Urine Cocaine Screen (NEGATIVE) U Marijuana (THC) Screen (NEGATIVE) Asad Results Last 24 Hours: Microbiology 09/17/19 21:45 Aerobic Blood Culture - Preliminary Blood - Venous - Lab Draw NO GROWTH AFTER 1 DAY Anaerobic Blood Culture - Preliminary NO GROWTH AFTER 1 DAY 09/17/19 21:30 Aerobic Blood Culture - Preliminary Blood - Venous NO GROWTH AFTER 1 DAY Anaerobic Blood Culture - Preliminary NO GROWTH AFTER 1 DAY Med Orders - Current: Current Medications Hydrocodone Bitart/Acetaminophen ([place] 325-10 Mg) 1 tab PO Q6HR PRN PRN Reason: Pain Last Admin: 09/18/19 21:02 Dose: 1 tab Acyclovir (Zovirax) 400 mg PO BID [facility] Last Admin: 09/19/19 08:44 Dose: 400 mg Amlodipine Besylate (Norvasc) 10 mg PO DAILY [facility] Last Admin: 09/18/19 09:59 Dose: 10 mg Aspirin (Halfprin) 81 mg PO DAILY [facility] Last Admin: 09/19/19 08:41 Dose: 81 mg Atorvastatin Calcium (Lipitor) 40 mg PO BEDTIME [facility] Last Admin: 09/18/19 21:02 Dose: 40 mg Dextrose/Water (Dextrose 50% In Water) 50 ml IVPUSH Q30M PRN PRN Reason: Hypoglycemia Sodium Chloride (Normal Saline) 500 mls @ 999 mls/hr IV .BOLUS [facility] Last Admin: 09/18/19 21:15 Dose: 999 mls/hr Potassium Chloride 10 meq/ (Premix) 0 mls @ 0 mls/hr IV Q1H [facility] Stop: 09/19/19 13:31 Isosorbide Mononitrate (Imdur) 60 mg PO DAILY [facility] Last Admin: 09/18/19 09:58 Dose: 60 mg Loperamide HCl (Imodium) 2 mg PO ASDIRECTED PRN PRN Reason: Diarrhea Metoprolol Succinate (Toprol Xl) 100 mg PO BID [facility] Last Admin: 09/18/19 21:02 Dose: Not Given Pantoprazole Sodium (Protonix) 40 mg PO DAILY [facility] Last Admin: 09/19/19 08:41 Dose: 40 mg Potassium Chloride (Klor-Con 10) 20 meq PO BID [facility] Last Admin: 09/19/19 08:41 Dose: 20 meq Prochlorperazine Maleate (Compazine) 10 mg PO Q6H PRN PRN Reason: Nausea Sodium Chloride (Saline Flush) 10 ml FLUSH ASDIRECTED PRN PRN Reason: Keep Vein Open Warfarin Sodium (Pharmacy To Dose - Warfarin) 1 dose .XX ASDIRECTED [facility] Warfarin Sodium (Coumadin) 2.5 mg PO ONETIME ONE Stop: 09/19/19 14:01 Discontinued Medications Hydrocodone Bitart/Acetaminophen ([place] 325-10 Mg) 1 tab PO Q6HR PRN PRN Reason: Pain Aspirin (Halfprin) 81 mg PO DAILY [facility] Dextrose/Water (Dextrose 50% In Water) 50 ml IVPUSH ONETIME PRN PRN Reason: Hypoglycemia Dextrose/Water (Dextrose 50% In Water) 50 ml IVPUSH ONETIME PRN PRN Reason: Blood Glucose Last Admin: 09/18/19 05:40 Dose: 50 ml Dextrose/Water (Dextrose 50% In Water) 50 ml IVPUSH ONETIME ONE Stop: 09/18/19 10:14 Last Admin: 09/18/19 10:33 Dose: 50 ml Dextrose/Water (Dextrose 50% In Water) 50 ml IVPUSH Q30M PRN PRN Reason: Blood Glucose Last Admin: 09/18/19 12:16 Dose: 50 ml Heparin Sodium (Porcine) (Heparin Sodium) 5,000 units SUBCUT Q8HR [facility] Dextrose/Sodium Chloride (Dextrose 5%-1/2 Ns) 1,000 mls @ 75 mls/hr IV ASDIRECTED [facility] Last Admin: 09/18/19 00:07 Dose: 75 mls/hr Dextrose/Water (Dextrose 10% In Water) 500 mls @ 100 mls/hr IV ONETIME ONE Stop: 09/18/19 08:58 Last Infusion: 09/18/19 05:42 Dose: 100 mls/hr Dextrose/Water (Dextrose 10% In Water) Confirm Administered Dose 500 mls @ as directed .ROUTE .STK-MED ONE Stop: 09/18/19 04:25 Last Admin: 09/18/19 05:40 Dose: Not Given Dextrose/Water (Dextrose 10% In Water) 500 mls @ 100 mls/hr IV ONETIME PRN PRN Reason: Hypoglycemia Last Infusion: 09/18/19 12:14 Dose: 125 mls/hr Dextrose/Water (Dextrose 10% In Water) 500 mls @ 125 mls/hr IV CONTINUOUS ONE Stop: 09/18/19 16:27 Last Admin: 09/19/19 02:18 Dose: 125 mls/hr Dextrose/Water (Dextrose 10% In Water) 500 mls @ 125 mls/hr IV ASDIRECTED ONE Stop: 09/18/19 23:17 Last Admin: 09/18/19 20:53 Dose: 125 mls/hr Isosorbide Mononitrate (Imdur) 60 mg PO DAILY [facility] Loperamide HCl (Imodium) 2 mg PO ASDIRECTED PRN PRN Reason: Diarrhea Non-Formulary Medication (Acyclovir [Zovirax]) 400 mg PO BID [facility] Non-Formulary Medication (Amlodipine [Norvasc]) 10 mg PO DAILY [facility] Non-Formulary Medication (Atorvastatin [Lipitor]) 40 mg PO BEDTIME [facility] Non-Formulary Medication (Metoprolol Succinate [Toprol Xl 100mg]) 100 mg PO BID [facility] Non-Formulary Medication (Potassium Chloride [Potassium Chloride]) 20 meq PO BID [facility] Non-Formulary Medication (Prochlorperazine [Compazine]) 10 mg PO Q6H PRN PRN Reason: Nausea Pantoprazole Sodium (Protonix) 40 mg PO DAILY [facility] Potassium Chloride (Klor-Con 10) 40 meq PO ONETIME ONE Stop: 09/18/19 09:21 Last Admin: 09/18/19 09:57 Dose: 40 meq Warfarin Sodium (Coumadin) 2.5 mg PO ONETIME ONE Stop: 09/18/19 14:01 Last Admin: 09/18/19 14:30 Dose: 2.5 mg - Exam General: Alert, Cooperative HEENT: Pupils Equal, Pupils Reactive, EOMI Neck: Supple, No JVD Lungs: Clear to Auscultation, Normal Respiratory Effort Cardiovascular: Regular Rate, Regular Rhythm GI/Abdominal Exam: Normal Bowel Sounds, Soft, Non-Tender, No Organomegaly, No Distention, No Abnormal Bruit, No Mass, Pelvis Stable (Female) Exam: Deferred Back Exam: Normal Inspection Extremities: Normal Inspection, No Pedal Edema Skin: Warm, Dry Neurological: No New Focal Deficit Psy/Mental Status: Alert, Normal Affect, Normal Mood Sepsis Event Note - Evaluation Sepsis Screening Result: No Definite Risk - Focused Exam Vital Signs: Vital Signs Temp Pulse Resp BP BP Pulse Ox Pulse Ox 09/19/19 07:55 98.1 F 63 16 99/48 L 97 09/19/19 03:19 74 16 103/58 L 09/18/19 23:14 61 83/41 L 83/43 L 09/18/19 22:37 99 09/18/19 22:24 98.1 F 64 16 84/48 L Date Exam was Performed: 09/19/19 Time Exam was Performed: 15:26 - Problem List Review Problem List Initiated/Reviewed/Updated: Yes - My Orders Last 24 Hours: My Active Orders 09/19/19 10:30 Potassium Chloride [KCl 10 MEQ in Water 100 ML] 10 meq Premix Bag 1 bag IV Q1H - Plan Plan:: #. Acute encephalopathy Patient was found poorly responsive and hypoglycemic. - Remains confused despite improvement in blood sugar - Suspect baseline cognitive defects - Will obtain basic cognitive assessment by OT - PT/OT consult #. Hypoglycemia Her appetite has been poor. Has not been eating well. Has been on oral hypoglycemic agent Amaryl. - Blood sugar >140 since today - Dc D10 and encourage eating - QID blood sugar checks - Hold glimepiride for now #. Hypokalemia Serum potassium is down to 3.0 this morning - Replace #. Multiple myeloma Patient has been on Revlimid #. Atrial fibrillation/chronic anticoagulation On chronic Coumadin therapy - INR is therapeutic at therapeutic range #. Coronary artery disease Status post coronary stent placement No complaint of chest pain #. Hypertension Blood pressure is within acceptable limits Family present at the bedside.
[2019-09-19] MEDS: Potassium Chloride 10 MEQ in Premix Bag 1 BAG IV SCH ×3 (11:09→15:40)
[2019-09-19] MEDS: amLODIPine 5 MG Tab PO SCH (11:31)
[2019-09-19] MEDS: Isosorbide Mononitrate 60 MG Tab.ER PO SCH (11:31)
[2019-09-19] MEDS: Metoprolol Succinate 50 MG Tab.ER PO SCH ×2 (11:31→23:06)
[2019-09-19] MEDS: Acetaminophen/HYDROcodone 325-10 MG Tab PO PRN (13:15)
[2019-09-19] MEDS ORDERED: Warfarin 2.5 MG Tab PO ONE (14:00)
[2019-09-19] MEDS ORDERED: Potassium Chloride 10 MEQ in Premix Bag 1 BAG IV SCH ×2 (18:30→21:30)
[2019-09-19] MEDS: atorvaSTATin 20 MG Tab PO SCH (21:14)
[2019-09-19] MEDS ORDERED: Potassium Chloride 10 MEQ in Premix Bag 1 BAG IV ONE (21:15)
[2019-09-20] MEDS: Acetaminophen/HYDROcodone 325-10 MG Tab PO PRN (07:24)
[2019-09-20] MEDS: Aspirin 81 MG Tab.EC PO SCH (08:37)
[2019-09-20] MEDS: Potassium Chloride 10 MEQ Tab.ER PO SCH (08:37)
[2019-09-20] MEDS: Metoprolol Succinate 50 MG Tab.ER PO SCH (08:37)
[2019-09-20] MEDS: Pantoprazole 40 MG Tab.CR PO SCH (08:37)
[2019-09-20] MEDS: amLODIPine 5 MG Tab PO SCH (08:37)
[2019-09-20] MEDS: Isosorbide Mononitrate 60 MG Tab.ER PO SCH (08:38)
[2019-09-20] MEDS: Acyclovir 200 MG Cap PO SCH (08:38)
--- NOTE | 2019-09-20 10:37 | PCM.DCSUM1 ---
Discharge Summary - Hospital Course Free Text/Narrative:: Bertha Lopez is a 79-year-old female with medical history of multiple myeloma , hypertension, atrial fibrillation, on chronic anticoagulation, coronary artery disease, diabetes mellitus type 2, who presented after being found minimally unresponsive by family. Patient was noted to be hypoglycemic with blood sugar of 30. Blood sugar improved with IV dextrose and withholding her oral antidiabetic. Her blood pressure was also soft, so her metoprolol was held. Patient recovered clinically. There was some concern about her mental state and ability to liver alone, however, she scored 26/30 on the MMSE. She will be discharged to home with family. She was instructed to keep logs of her blood sugar and blood pressure and take to her PCP visit. She will continue to hold oral antidiabetic, while dose of metoprolol was reduced to 50 mg BID. Discharge diagnosis Acute encephalopathy Hypoglycemia Hypokalemia Multiple myeloma Atrial fibrillation/chronic anticoagulation Coronary artery disease Status post coronary stent placement Hypertension - Discharge Data Discharge Date: 09/20/19 Discharge Disposition: Home, Self-Care 01 Condition: Stable - Referral to Home Health Primary Care Physician: Gloria Soto MD - Patient Summary/Data Consults: Consultations 09/17/19 22:57 OT Evaluation and Treatment [CONS] Routine PT Evaluation and Treatment [CONS] Routine 09/19/19 12:14 Consult to Occupational Therapy [OT Evaluation and Treatment] [CONS] Routine - Patient Instructions Diet: Diabetic Diet Activity: As Tolerated Other/Special Instructions: Follow up with your primary care doctor within 1 week. Keep clinic appointment with Dr. Ureña. Keep a log of your blood sugar and blood pressure twice a day and show to your primary care doctor. - Discharge Plan *PRESCRIPTION DRUG MONITORING PROGRAM REVIEWED*: Not Applicable *COPY OF PRESCRIPTION DRUG MONITORING REPORT IN PATIENT RYLEE: Not Applicable Prescriptions/Med Rec: Metoprolol Succinate [Toprol XL 50mg] 50 mg PO BID #90 tab.er Home Medications: Home Meds Hydrocodone/Acetaminophen [[place] 10-325] 1 tab PO Q6HR PRN 10/01/13 [History] Isosorbide Mononitrate [Imdur] 60 mg PO DAILY 10/01/13 [History] Magnesium Oxide 250 mg PO ASDIRECTED 10/01/13 [History] Multivitamin [Multivitamins] 1 each PO DAILY 10/01/13 [History] Nitroglycerin [Nitrostat] 0.4 mg SL ASDIRECTED PRN 10/01/13 [History] Potassium Chloride 20 meq PO BID 10/01/13 [History] atorvaSTATin [Lipitor] 40 mg PO BEDTIME 10/01/13 [History] hydroCHLOROthiazide [Hydrochlorothiazide] 25 mg PO DAILY 10/01/13 [History] Aspirin [Ecotrin EC] 81 mg PO DAILY 10/23/16 [History] Ergocalciferol (Vitamin D2) [Vitamin D] 400 unit PO DAILY 10/23/16 [History] Loperamide [Imodium] 1 tab PO ASDIRECTED PRN 10/23/16 [History] Warfarin [Coumadin] 2.5 mg PO BEDTIME 10/23/16 [History] amLODIPine [Norvasc] 10 mg PO DAILY 10/23/16 [History] Calcium Carbonate/Vitamin D3 [Calcium 600 + Vit D Tablet] 1 tab PO DAILY [History] Ferrous Sulfate [Iron] 325 mg PO DAILY 02/21/17 [History] Pantoprazole Sodium [Protonix] 1 tab PO DAILY 02/21/17 [History] Acyclovir [Zovirax] 400 mg PO BID 09/17/19 [History] Lenalidomide [Revlimid] 25 mg PO ASDIRECTED 09/17/19 [History] Lidocaine 5% [Lidoderm 5%] 1 patch TOP DAILY 09/17/19 [History] Ondansetron [Zofran] 8 mg PO Q8H PRN 09/17/19 [History] Prochlorperazine [Compazine] 10 mg PO Q6H PRN 09/17/19 [History] Solifenacin Succinate 10 mg PO DAILY 09/17/19 [History] Sulfamethoxazole/Trimethoprim [Sulfamethoxazole-Tmp Ds Tablet] 1 each PO ASDIRECTED 09/17/19 [History] Warfarin [Coumadin] 1.5 mg PO BEDTIME 09/17/19 [History] fentaNYL [Duragesic] 12 mcg TD ASDIRECTED 09/17/19 [History] Metoprolol Succinate [Toprol XL 50mg] 50 mg PO BID #90 tab.er 09/20/19 [Rx] Patient Handouts: Hypoglycemia, [id number] Referrals: Gloria Soto MD [Primary Care Provider] - - Discharge Summary/Plan Comment DC Time >30 min.: Yes - General Info Date of Service: 09/20/19 Functional Status: Reports: Pain Controlled - Review of Systems General: Reports: No Symptoms HEENT: Reports: No Symptoms Pulmonary: Reports: No Symptoms Cardiovascular: Reports: No Symptoms Gastrointestinal: Reports: No Symptoms Genitourinary: Reports: No Symptoms Musculoskeletal: Reports: No Symptoms Skin: Reports: No Symptoms Neurological: Reports: No Symptoms Psychiatric: Reports: No Symptoms - Patient Data Vitals - Most Recent: Last Vital Signs Temp 98.5 F 09/20/19 07:33 Pulse 75 09/20/19 09:55 Resp 16 09/20/19 07:33 BP 112/65 09/20/19 09:55 Pulse Ox 96 09/20/19 07:33 Weight - Most Recent: 119 lb 11.2 oz I&O - Last 24 hours: Intake & Output 09/19/19 09/20/19 09/20/19 22:59 06:59 14:59 Intake Total 1610 360 Output Total 1000 Balance 610 360 Lab Results - Last 24 hrs: Laboratory Results - last 24 hr 09/19/19 09/19/19 09/19/19 Range/Units 11:48 16:46 20:50 POC Glucose 117 H 101 78 L (83-110) mg/dl 09/20/19 Range/Units 07:52 POC Glucose 90 (83-110) mg/dl MICHELET Results - Last 24 hrs: Microbiology 09/17/19 21:45 Aerobic Blood Culture - Preliminary Blood - Venous - Lab Draw NO GROWTH AFTER 2 DAYS Anaerobic Blood Culture - Preliminary NO GROWTH AFTER 2 DAYS 09/17/19 21:30 Aerobic Blood Culture - Preliminary Blood - Venous NO GROWTH AFTER 2 DAYS Anaerobic Blood Culture - Preliminary NO GROWTH AFTER 2 DAYS Med Orders - Current: Current Medications Hydrocodone Bitart/Acetaminophen ([place] 325-10 Mg) 1 tab PO Q6HR PRN PRN Reason: Pain Last Admin: 09/20/19 07:24 Dose: 1 tab Acyclovir (Zovirax) 400 mg PO BID [facility] Last Admin: 09/20/19 08:38 Dose: 400 mg Amlodipine Besylate (Norvasc) 10 mg PO DAILY [facility] Last Admin: 09/20/19 08:37 Dose: 10 mg Aspirin (Halfprin) 81 mg PO DAILY [facility] Last Admin: 09/20/19 08:37 Dose: 81 mg Atorvastatin Calcium (Lipitor) 40 mg PO BEDTIME [facility] Last Admin: 09/19/19 21:14 Dose: 40 mg Dextrose/Water (Dextrose 50% In Water) 50 ml IVPUSH Q30M PRN PRN Reason: Hypoglycemia Sodium Chloride (Normal Saline) 500 mls @ 999 mls/hr IV .BOLUS [facility] Last Admin: 09/18/19 21:15 Dose: 999 mls/hr Isosorbide Mononitrate (Imdur) 60 mg PO DAILY [facility] Last Admin: 09/20/19 08:38 Dose: 60 mg Loperamide HCl (Imodium) 2 mg PO ASDIRECTED PRN PRN Reason: Diarrhea Metoprolol Succinate (Toprol Xl) 100 mg PO BID [facility] Last Admin: 09/20/19 08:37 Dose: 100 mg Pantoprazole Sodium (Protonix) 40 mg PO DAILY [facility] Last Admin: 09/20/19 08:37 Dose: 40 mg Potassium Chloride (Klor-Con 10) 20 meq PO BID [facility] Last Admin: 09/20/19 08:37 Dose: 20 meq Prochlorperazine Maleate (Compazine) 10 mg PO Q6H PRN PRN Reason: Nausea Sodium Chloride (Saline Flush) 10 ml FLUSH ASDIRECTED PRN PRN Reason: Keep Vein Open Warfarin Sodium (Pharmacy To Dose - Warfarin) 1 dose .XX ASDIRECTED [facility] Warfarin Sodium (Coumadin) 2.5 mg PO ONETIME ONE Stop: 09/20/19 14:01 Discontinued Medications Hydrocodone Bitart/Acetaminophen ([place] 325-10 Mg) 1 tab PO Q6HR PRN PRN Reason: Pain Aspirin (Halfprin) 81 mg PO DAILY [facility] Dextrose/Water (Dextrose 50% In Water) 50 ml IVPUSH ONETIME PRN PRN Reason: Hypoglycemia Dextrose/Water (Dextrose 50% In Water) 50 ml IVPUSH ONETIME PRN PRN Reason: Blood Glucose Last Admin: 09/18/19 05:40 Dose: 50 ml Dextrose/Water (Dextrose 50% In Water) 50 ml IVPUSH ONETIME ONE Stop: 09/18/19 10:14 Last Admin: 09/18/19 10:33 Dose: 50 ml Dextrose/Water (Dextrose 50% In Water) 50 ml IVPUSH Q30M PRN PRN Reason: Blood Glucose Last Admin: 09/18/19 12:16 Dose: 50 ml Heparin Sodium (Porcine) (Heparin Sodium) 5,000 units SUBCUT Q8HR [facility] Dextrose/Sodium Chloride (Dextrose 5%-1/2 Ns) 1,000 mls @ 75 mls/hr IV ASDIRECTED [facility] Last Admin: 09/18/19 00:07 Dose: 75 mls/hr Dextrose/Water (Dextrose 10% In Water) 500 mls @ 100 mls/hr IV ONETIME ONE Stop: 09/18/19 08:58 Last Infusion: 09/18/19 05:42 Dose: 100 mls/hr Dextrose/Water (Dextrose 10% In Water) Confirm Administered Dose 500 mls @ as directed .ROUTE .STK-MED ONE Stop: 09/18/19 04:25 Last Admin: 09/18/19 05:40 Dose: Not Given Dextrose/Water (Dextrose 10% In Water) 500 mls @ 100 mls/hr IV ONETIME PRN PRN Reason: Hypoglycemia Last Infusion: 09/18/19 12:14 Dose: 125 mls/hr Dextrose/Water (Dextrose 10% In Water) 500 mls @ 125 mls/hr IV CONTINUOUS ONE Stop: 09/18/19 16:27 Last Admin: 09/19/19 02:18 Dose: 125 mls/hr Dextrose/Water (Dextrose 10% In Water) 500 mls @ 125 mls/hr IV ASDIRECTED ONE Stop: 09/18/19 23:17 Last Admin: 09/18/19 20:53 Dose: 125 mls/hr Potassium Chloride 10 meq/ (Premix) 0 mls @ 0 mls/hr IV Q1H [facility] Stop: 09/19/19 13:31 Last Admin: 09/19/19 15:40 Dose: Not Given Potassium Chloride 10 meq/ (Premix) 0 mls @ 30 mls/hr IV Q4H [facility] Stop: 09/19/19 22:31 Last Admin: 09/19/19 17:53 Dose: 30 mls/hr Potassium Chloride 10 meq/ (Premix) 100 mls @ 100 mls/hr IV ONETIME ONE Stop: 09/19/19 22:14 Last Infusion: 09/20/19 05:04 Dose: Infused Potassium Chloride 10 meq/ (Premix) 100 mls @ 100 mls/hr IV Q4H [facility] Stop: 09/19/19 22:29 Last Admin: 09/19/19 22:58 Dose: Not Given Isosorbide Mononitrate (Imdur) 60 mg PO DAILY [facility] Loperamide HCl (Imodium) 2 mg PO ASDIRECTED PRN PRN Reason: Diarrhea Non-Formulary Medication (Acyclovir [Zovirax]) 400 mg PO BID [facility] Non-Formulary Medication (Amlodipine [Norvasc]) 10 mg PO DAILY [facility] Non-Formulary Medication (Atorvastatin [Lipitor]) 40 mg PO BEDTIME [facility] Non-Formulary Medication (Metoprolol Succinate [Toprol Xl 100mg]) 100 mg PO BID [facility] Non-Formulary Medication (Potassium Chloride [Potassium Chloride]) 20 meq PO BID [facility] Non-Formulary Medication (Prochlorperazine [Compazine]) 10 mg PO Q6H PRN PRN Reason: Nausea Pantoprazole Sodium (Protonix) 40 mg PO DAILY [facility] Potassium Chloride (Klor-Con 10) 40 meq PO ONETIME ONE Stop: 09/18/19 09:21 Last Admin: 09/18/19 09:57 Dose: 40 meq Warfarin Sodium (Coumadin) 2.5 mg PO ONETIME ONE Stop: 09/18/19 14:01 Last Admin: 09/18/19 14:30 Dose: 2.5 mg Warfarin Sodium (Coumadin) 2.5 mg PO ONETIME ONE Stop: 09/19/19 14:01 Last Admin: 09/19/19 13:15 Dose: 2.5 mg - Exam General: Reports: Alert, Oriented HEENT: Reports: Pupils Equal, Pupils Reactive, EOMI, Mucous Membr. Moist/[place] Neck: Reports: Supple Lungs: Reports: Clear to Auscultation, Normal Respiratory Effort Cardiovascular: Reports: Regular Rate, Regular Rhythm GI/Abdominal Exam: Normal Bowel Sounds, Soft, Non-Tender, No Organomegaly, No Distention, No Abnormal Bruit, No Mass, Pelvis Stable (Female) Exam: Deferred Rectal (Female) Exam: Deferred Back Exam: Reports: Normal Inspection, Full Range of Motion Extremities: Normal Inspection, Normal Range of Motion, Non-Tender, No Pedal Edema, Normal Capillary Refill Skin: Reports: Warm, Dry, Intact Wound/Incisions: Reports: Healing Well Neurological: Reports: No New Focal Deficit Psy/Mental Status: Reports: Alert, Normal Affect, Normal Mood
[2019-09-20 11:36] VITALS: BP 115/62; PULSE 66
[2019-09-20] MEDS ORDERED: Warfarin 2.5 MG Tab PO ONE (14:00)
== END 2019-09-20 11:40 | disposition home or self-care (01) | DRG 637 ==
LOC: DL.ED 21:08 → DL.MS 22:00 → UNDOADMOB 22:57 → DL.ED 23:25 → OBSVTOIN 09-18 09:32 → INTOOBSV 09-18 09:32 → UNDOADMOB 09-19 07:36 → DL.MS 09-19 07:36 → INTOOBSV 09-19 07:36 → OBSVTOIN 09-19 07:36
PROVIDERS: ADMIT Hospitalist; ATTEND Internal Medicine
DX: E11.649 Type 2 diabetes mellitus with hypoglycemia without coma (principal); G93.41 Metabolic encephalopathy; C90.00 Multiple myeloma not having achieved remission; E87.6 Hypokalemia; I48.91 Unspecified atrial fibrillation; I10 Essential (primary) hypertension; G89.29 Other chronic pain; M54.9 Dorsalgia, unspecified; H54.7 Unspecified visual loss; H91.90 Unspecified hearing loss, unspecified ear; I25.10 Atherosclerotic heart disease of native coronary artery without angina pectoris; K21.9 Gastro-esophageal reflux disease without esophagitis; M19.90 Unspecified osteoarthritis, unspecified site; Z79.01 Long term (current) use of anticoagulants; Z88.5 Allergy status to narcotic agent; Z88.8 Allergy status to other drugs, medicaments and biological substances; K58.9 Irritable bowel syndrome, unspecified; Z95.0 Presence of cardiac pacemaker; E61.1 Iron deficiency; R41.81 Age-related cognitive decline; Z85.51 Personal history of malignant neoplasm of bladder; Z95.5 Presence of coronary angioplasty implant and graft; Z79.84 Long term (current) use of oral hypoglycemic drugs; Z79.899 Other long term (current) drug therapy; Z79.82 Long term (current) use of aspirin; Z87.891 Personal history of nicotine dependence
CPT/HCPCS: 36415 ×2; 70450; 71045; 80048; 80053; 82947; 82962 ×12; 83605; 84484; 85025; 85027; 85610 ×2; 87040 ×2; 93005 ×2; 99284; 99285; G0480; J7042; 80305-QW; 81003; 96361; 96374; 96376; 97129-GO; 97162-GP; 97165-GO; A9270-GY; G0378; J3480; J7040

== ENCOUNTER 2019-09-21 09:16 | Emergency (ER) | payer MEDICARE, BC ==
--- NOTE | 2019-09-21 09:26 | EDM.PDOC ---
ED HPI GENERAL MEDICAL PROBLEM - General Chief Complaint: General Stated Complaint: HIGH POTASSIUM Time Seen by Provider: 09/21/19 09:26 Source of Information: Reports: Patient, Old Records, RN, RN Notes Reviewed History Limitations: Reports: No Limitations - History of Present Illness INITIAL COMMENTS - FREE TEXT/NARRATIVE: Pt sent from clinic with report that her serum potassium was "too high" at 6.0. It is unknown if the lab specimen was hemolyzed or not. Pt denies any symptoms or complaints, and states that she feels completely well. She was discharged from inpatient stay yesterday after being admitted for hypoglycemia. Pt states she takes a potassium supplement for chronically low potassium. Lab review reveals her K+ was 3.0 on 09/19/19. Onset: Unknown/Unsure Location: Reports: Generalized Associated Symptoms: Reports: No Other Symptoms - Related Data Allergies Allergy/AdvReac Type Severity Reaction Status Date / Time etodolac [Etodolac] Allergy Hives Verified 09/21/19 09:51 nadolol Allergy Rash Verified 09/21/19 09:51 niacin Allergy Rash Verified 09/21/19 09:51 spironolactone Allergy Fatigue Verified 09/21/19 09:51 Home Meds: Home Meds Hydrocodone/Acetaminophen [[place] 10-325] 1 tab PO Q6HR PRN 10/01/13 [History] Isosorbide Mononitrate [Imdur] 60 mg PO DAILY 10/01/13 [History] Magnesium Oxide 250 mg PO ASDIRECTED 10/01/13 [History] Multivitamin [Multivitamins] 1 each PO DAILY 10/01/13 [History] Nitroglycerin [Nitrostat] 0.4 mg SL ASDIRECTED PRN 10/01/13 [History] Potassium Chloride 20 meq PO BID 10/01/13 [History] atorvaSTATin [Lipitor] 40 mg PO BEDTIME 10/01/13 [History] hydroCHLOROthiazide [Hydrochlorothiazide] 25 mg PO DAILY 10/01/13 [History] Aspirin [Ecotrin EC] 81 mg PO DAILY 10/23/16 [History] Ergocalciferol (Vitamin D2) [Vitamin D] 400 unit PO DAILY 10/23/16 [History] Loperamide [Imodium] 1 tab PO ASDIRECTED PRN 10/23/16 [History] Warfarin [Coumadin] 2.5 mg PO BEDTIME 10/23/16 [History] amLODIPine [Norvasc] 10 mg PO DAILY 10/23/16 [History] Calcium Carbonate/Vitamin D3 [Calcium 600 + Vit D Tablet] 1 tab PO DAILY [History] Ferrous Sulfate [Iron] 325 mg PO DAILY 02/21/17 [History] Pantoprazole Sodium [Protonix] 1 tab PO DAILY 02/21/17 [History] Acyclovir [Zovirax] 400 mg PO BID 09/17/19 [History] Lenalidomide [Revlimid] 25 mg PO ASDIRECTED 09/17/19 [History] Lidocaine 5% [Lidoderm 5%] 1 patch TOP DAILY 09/17/19 [History] Ondansetron [Zofran] 8 mg PO Q8H PRN 09/17/19 [History] Prochlorperazine [Compazine] 10 mg PO Q6H PRN 09/17/19 [History] Solifenacin Succinate 10 mg PO DAILY 09/17/19 [History] Sulfamethoxazole/Trimethoprim [Sulfamethoxazole-Tmp Ds Tablet] 1 each PO ASDIRECTED 09/17/19 [History] Warfarin [Coumadin] 1.5 mg PO BEDTIME 09/17/19 [History] fentaNYL [Duragesic] 12 mcg TD ASDIRECTED 09/17/19 [History] Metoprolol Succinate [Toprol XL 50mg] 50 mg PO BID #90 tab.er 09/20/19 [Rx] Past Medical History HEENT History: Reports: Hard of Hearing, Impaired Vision Other HEENT History: wears glasses Cardiovascular History: Reports: Afib, Arrhythmia, CAD, Hypertension, Pacemaker , PTCA, Stents Respiratory History: Reports: Pneumonia, Recurrent Gastrointestinal History: Reports: GERD, Irritable Bowel Syndrome Genitourinary History: Reports: None Other Genitourinary History: frequency, nocturia, bladder cancer [employer] History: Reports: Spontaneous Musculoskeletal History: Reports: Arthritis, Back Pain, Chronic Neurological History: Reports: None Psychiatric History: Reports: None Endocrine/Metabolic History: Reports: Diabetes, Type II Hematologic History: Reports: Iron Deficiency Immunologic History: Reports: None Oncologic (Cancer) History: Reports: Bladder Dermatologic History: Reports: None - Infectious Disease History Infectious Disease History: Reports: Chicken Pox, Measles - Past Surgical History Head Surgeries/Procedures: Reports: None HEENT Surgical History: Reports: None Cardiovascular Surgical History: Reports: Pacer Respiratory Surgical History: Reports: None GI Surgical History: Reports: Colonoscopy, EGD Female Surgical History: Reports: Breast Biopsy Other Female Surgeries/Procedures: breast cyst Neurological Surgical History: Reports: None Social & Family History - Family History Family Medical History: Noncontributory - Caffeine Use Caffeine Use: Reports: None - Living Situation & Occupation Living situation: Reports: Alone Occupation: Employed ED ROS GENERAL - Review of Systems Review Of Systems: Comprehensive ROS is negative, except as noted in HPI. ED EXAM, GENERAL - Physical Exam Exam: See Below Exam Limited By: No Limitations General Appearance: Alert, WD/WN, No Apparent Distress Throat/Mouth: Normal Voice Head: Atraumatic, Normocephalic Neck: Normal Inspection Respiratory/Chest: No Respiratory Distress Cardiovascular: Irregularly Irregular Neurological: Alert, Oriented, CN II-XII Intact, Normal Cognition, Normal Gait, No Motor/Sensory Deficits Psychiatric: Normal Affect, Normal Mood Skin Exam: Warm, Dry, Intact, Normal Color Course - Vital Signs Last Recorded V/S: Last Vital Signs Temp 98.3 F 09/21/19 09:25 Pulse 94 09/21/19 09:25 Resp 20 09/21/19 09:25 BP 118/75 09/21/19 09:25 Pulse Ox 100 09/21/19 09:25 - Orders/Labs/Meds Labs: Laboratory Tests 09/21/19 Range/Units 09:47 Potassium 5.7 H D (3.6-5.0) mmol/L Departure - Departure Time of Disposition: 10:18 Disposition: Home, Self-Care 01 Condition: Good Clinical Impression: Hyperkalemia - Discharge Information *PRESCRIPTION DRUG MONITORING PROGRAM REVIEWED*: No *COPY OF PRESCRIPTION DRUG MONITORING REPORT IN PATIENT RYLEE: No Instructions: Hyperkalemia, [id number] Forms: ED Department Discharge Additional Instructions: Do not take your Potassium today. Call your clinic doctor to confirm how much Potassium to take in the future, and when to restart taking it. Sepsis Event Note - Focused Exam Vital Signs: Vital Signs Temp Pulse Resp BP Pulse Ox 09/21/19 09:25 98.3 F 94 20 118/75 100 Date Exam was Performed: 09/21/19 Time Exam was Performed: 10:17
[2019-09-21 09:49] VITALS: BP 118/75; PULSE 94
== END 2019-09-21 10:29 | disposition home or self-care (01) ==
LOC: DL.ED 09:16
DX: E87.5 Hyperkalemia (principal); I25.10 Atherosclerotic heart disease of native coronary artery without angina pectoris; E11.9 Type 2 diabetes mellitus without complications; I10 Essential (primary) hypertension; I48.91 Unspecified atrial fibrillation; K21.9 Gastro-esophageal reflux disease without esophagitis; Z88.8 Allergy status to other drugs, medicaments and biological substances; Z95.5 Presence of coronary angioplasty implant and graft; Z79.82 Long term (current) use of aspirin; Z79.899 Other long term (current) drug therapy; Z79.01 Long term (current) use of anticoagulants; Z85.51 Personal history of malignant neoplasm of bladder
CPT/HCPCS: 36415; 84132; 99284

== ENCOUNTER 2019-10-07 13:03 | Emergency (ER) | payer MEDICARE, BC ==
[2019-10-07 13:01] VITALS: BP 76/34; PULSE 54
[~2019-10-07 13:03] MED LIST changes: -Midazolam 1 MG/ML 2 ML SDV ONE; +Sodium Chloride 0.9% 1,000 ML IV SCH; -fentaNYL 100 MCG/2 ML SDV ONE
[2019-10-07 13:39] LABS: CHLORIDE,CL 98 mmol/L (101-111); SODIUM,NA 134 mmol/L (135-145)
[2019-10-07] MEDS ORDERED: Sodium Chloride 0.9% 1,000 ML IV ONE (14:18)
--- NOTE | 2019-10-07 14:21 | EDM.PDOC ---
ED HPI GENERAL MEDICAL PROBLEM - General Chief Complaint: General Stated Complaint: GENERAL Time Seen by Provider: 10/07/19 13:05 Source of Information: Reports: Patient, EMS, EMS Notes Reviewed, RN, RN Notes Reviewed History Limitations: Reports: No Limitations - History of Present Illness INITIAL COMMENTS - FREE TEXT/NARRATIVE: Patient is a 79-year-old female who presents by [facility]. Patient is a poor historian and history was obtained from [employer] and niece at bedside. Patient has a history of multiple myeloma, last chemotherapy 3 days ago. She presents with complaints of weakness, nausea, generalized body aches. She lives alone and family reports difficulty administering medications. Family also reports diarrhea x3 days. Patient has not been able to drink or eat for the past 3 days. She currently has 2 Fentanyl patches on. [employer] reports patient has been declining in the past 3 days. Patient also received potassium for hypokalemia four days ago. BP was noted to be in the 77/50 and patient was administered 250 bolus enourte to Er by EMS. - Related Data Allergies Allergy/AdvReac Type Severity Reaction Status Date / Time etodolac [Etodolac] Allergy Hives Verified 09/21/19 09:51 nadolol Allergy Rash Verified 09/21/19 09:51 niacin Allergy Rash Verified 09/21/19 09:51 spironolactone Allergy Fatigue Verified 09/21/19 09:51 Home Meds: Home Meds Hydrocodone/Acetaminophen [Chromo 10-325] 1 tab PO Q6HR PRN 10/01/13 [History] Isosorbide Mononitrate [Imdur] 60 mg PO DAILY 10/01/13 [History] Magnesium Oxide 250 mg PO ASDIRECTED 10/01/13 [History] Multivitamin [Multivitamins] 1 each PO DAILY 10/01/13 [History] Nitroglycerin [Nitrostat] 0.4 mg SL ASDIRECTED PRN 10/01/13 [History] Potassium Chloride 20 meq PO BID 10/01/13 [History] atorvaSTATin [Lipitor] 40 mg PO BEDTIME 10/01/13 [History] hydroCHLOROthiazide [Hydrochlorothiazide] 25 mg PO DAILY 10/01/13 [History] Aspirin [Ecotrin EC] 81 mg PO DAILY 10/23/16 [History] Ergocalciferol (Vitamin D2) [Vitamin D] 400 unit PO DAILY 10/23/16 [History] Loperamide [Imodium] 1 tab PO ASDIRECTED PRN 10/23/16 [History] Warfarin [Coumadin] 2.5 mg PO BEDTIME 10/23/16 [History] amLODIPine [Norvasc] 10 mg PO DAILY 10/23/16 [History] Calcium Carbonate/Vitamin D3 [Calcium 600 + Vit D Tablet] 1 tab PO DAILY [History] Ferrous Sulfate [Iron] 325 mg PO DAILY 02/21/17 [History] Pantoprazole Sodium [Protonix] 1 tab PO DAILY 02/21/17 [History] Acyclovir [Zovirax] 400 mg PO BID 09/17/19 [History] Lenalidomide [Revlimid] 25 mg PO ASDIRECTED 09/17/19 [History] Lidocaine 5% [Lidoderm 5%] 1 patch TOP DAILY 09/17/19 [History] Ondansetron [Zofran] 8 mg PO Q8H PRN 09/17/19 [History] Prochlorperazine [Compazine] 10 mg PO Q6H PRN 09/17/19 [History] Solifenacin Succinate 10 mg PO DAILY 09/17/19 [History] Sulfamethoxazole/Trimethoprim [Sulfamethoxazole-Tmp Ds Tablet] 1 each PO ASDIRECTED 09/17/19 [History] Warfarin [Coumadin] 1.5 mg PO BEDTIME 09/17/19 [History] fentaNYL [Duragesic] 12 mcg TD ASDIRECTED 09/17/19 [History] Metoprolol Succinate [Toprol XL 50mg] 50 mg PO BID #90 tab.er 09/20/19 [Rx] Past Medical History HEENT History: Reports: Hard of Hearing, Impaired Vision Other HEENT History: wears glasses Cardiovascular History: Reports: Afib, Arrhythmia, CAD, Hypertension, Pacemaker , PTCA, Stents Respiratory History: Reports: Pneumonia, Recurrent Gastrointestinal History: Reports: GERD, Irritable Bowel Syndrome Genitourinary History: Reports: None Other Genitourinary History: frequency, nocturia, bladder cancer [employer] TE[employer]BER History: Reports: Spontaneous Musculoskeletal History: Reports: Arthritis, Back Pain, Chronic Neurological History: Reports: None Psychiatric History: Reports: None Endocrine/Metabolic History: Reports: Diabetes, Type II Hematologic History: Reports: Iron Deficiency Immunologic History: Reports: None Oncologic (Cancer) History: Reports: Bladder Dermatologic History: Reports: None - Infectious Disease History Infectious Disease History: Reports: Chicken Pox, Measles - Past Surgical History Head Surgeries/Procedures: Reports: None HEENT Surgical History: Reports: None Cardiovascular Surgical History: Reports: Pacer Respiratory Surgical History: Reports: None GI Surgical History: Reports: Colonoscopy, EGD Female Surgical History: Reports: Breast Biopsy Other Female Surgeries/Procedures: breast cyst Neurological Surgical History: Reports: None Social & Family History - Family History Family Medical History: Noncontributory - Caffeine Use Caffeine Use: Reports: None - Living Situation & Occupation Living situation: Reports: Alone Occupation: Employed ED ROS GENERAL - Review of Systems Review Of Systems: Unable To Obtain Reason Not Obtained: Patient lethargic with cognitive decine ED EXAM, GENERAL - Physical Exam Exam: See Below Exam Limited By: Altered Mental Status General Appearance: Alert, Lethargic Ears: Normal External Exam, Normal Canal Nose: Normal Inspection, Normal Mucosa Throat/Mouth: Other (dry mucus membrane and chapped lips) Head: Normocephalic Neck: Supple, Non-Tender Respiratory/Chest: Lungs Clear, No Accessory Muscle Use Cardiovascular: Tachycardia, Irregularly Irregular GI/Abdominal: Soft, Other (decreased bowel sounds) (Female) Exam: Deferred Rectal (Female) Exam: Deferred Extremities: Pedal Edema (noted especially the toes. Compression stocking in place) Neurological: Alert, Slow to Respond Skin Exam: Warm, Intact Course - Vital Signs Last Recorded V/S: Last Vital Signs Temp 98.1 F 10/07/19 12:47 Pulse 54 L 10/07/19 12:47 Resp 12 10/07/19 12:47 BP 76/34 L 10/07/19 12:47 Pulse Ox 94 L 10/07/19 13:50 - Orders/Labs/Meds Labs: Laboratory Tests 10/07/19 10/07/19 10/07/19 Range/Units 13:12 13:12 13:12 WBC 3.8 L (5.0-10.0) 10^3/uL RBC 3.37 L (4.2-5.4) 10^6/uL Hgb 11.5 L (12.0-16.0) g/dL Hct 34.5 L (37.0-47.0) % MCV 102.4 H (80-100) fL MCH 34.1 H (27.0-34.0) pg MCHC 33.3 (33.0-35.0) g/dL Plt Count 64 L (150-450) 10^3/uL Sodium 134 L (135-145) mmol/L Potassium 6.0 H (3.6-5.0) mmol/L Chloride 98 L (101-111) mmol/L Carbon Dioxide 19.0 L (21.0-31.0) mmol/L Anion Gap 23.0 BUN 50 H D (7-18) mg/dL Creatinine 2.3 H D (0.6-1.3) mg/dL Est Cr Clr Drug Dosing TNP Estimated GFR (MDRD) 21 BUN/Creatinine Ratio 21.73 Glucose 132 H (74-105) mg/dL Calcium 6.1 L (8.4-10.2) mg/dl Total Bilirubin 1.7 H (0.2-1.0) mg/dL AST 56 H (10-42) IU/L ALT 30 (10-60) IU/L Alkaline Phosphatase 73 (42-121) IU/L Troponin I 0.17 H* (0.00-0.02) ng/ml B-Natriuretic Peptide 295 H (0-100) pg/ml Total Protein 5.7 L (6.7-8.2) g/dl Albumin 2.4 L (3.2-5.5) g/dl Globulin 3.3 Albumin/Globulin Ratio 0.73 Meds: Medications Discontinued Medications Generic Name Dose Route Start Last Admin Trade Name Freq PRN Reason Stop Dose Admin Albuterol 2.5 mg 10/07/19 14:34 10/07/19 14:46 Proventil Neb Soln NEB 10/07/19 14:35 Not Given ONETIME ONE Calcium Gluconate 1 gm 10/07/19 14:31 10/07/19 14:46 Calcium Gluconate IVPUSH 10/07/19 14:32 Not Given ONETIME ONE Sodium Chloride 1,000 mls @ 999 mls/hr 10/07/19 13:00 10/07/19 13:00 Normal Saline IV 999 mls/hr ASDIRECTED TRISH Administration Sodium Chloride 1,000 mls @ 999 mls/hr 10/07/19 14:18 10/07/19 14:19 Normal Saline IV 10/07/19 15:18 999 mls/hr .BOLUS ONE Administration Piperacillin Sod/Tazobactam 100 mls @ 200 mls/hr 10/07/19 14:28 10/07/19 14: 43 Sod 3.375 gm/ Sodium Chloride IV 10/07/19 14:57 200 mls/hr ONETIME ONE Administration Vancomycin HCl 1 gm/ Dextrose/ 250 mls @ 167 mls/hr 10/07/19 14:26 10/07/19 14:42 Water IV 10/07/19 15:55 167 mls/hr ONETIME ONE Administration Sodium Chloride 250 mls @ 250 mls/hr 10/07/19 14:45 Normal Saline IV ASDIRECTED TRISH Insulin Human Regular 10 unit 10/07/19 14:29 10/07/19 14:43 Humulin R IV 10/07/19 14:30 10 unit ONETIME ONE Administration - Re-Assessments/Exams Free Text/Narrative Re-Assessment/Exam: Labs ordered. BP was did not improve with 250 ml NS bolus. 500 ml bolus was given with no improvement in blood pressure. ! Liter bolus noted initated and showed an elevated Troponin, hyperkalemia and Alt one Call was consulted. [facility] was on divert and [facility] consulted. Patient was accepted for transfer for . An amp of D50, Calcium gluconate, albuterol neb, regular insulin 10 units, Vanco 1gm, and zosyn 3.375 with continue fluids at 250 ml/hr. Patient was transferred by [facility]. Departure - Departure Time of Disposition: 14:30 Disposition: DC/Tfer to Acute Hospital 02 Condition: Critical Clinical Impression: Atrial flutter by electrocardiogram, Hyperkalemia Congestive heart failure Qualifiers: Heart failure type: right-sided Heart failure chronicity: chronic Qualified Code(s): I50.812 - Chronic right heart failure - Discharge Information Referrals: PCP,Unobtain [Primary Care Provider] - Forms: ED Department Discharge, Interfacility Transfer [facility] Sepsis Event Note - Evaluation Sepsis Screening Result: No Definite Risk - Focused Exam Date Exam was Performed: 10/08/19 Time Exam was Performed: 17:46
[2019-10-07] MEDS ORDERED: Piperacillin/Tazobactam 3.375 GM in Sodium Chloride 0.9% 100 ML IV ONE (14:28)
[2019-10-07] MEDS ORDERED: Insulin Regular, Human 100 Units/ML 3 ML Vial IV ONE (14:29)
[2019-10-07] MEDS ORDERED: Calcium Gluconate 10% 1 GM/10 ML SDV IVPUSH ONE (14:31)
[2019-10-07] MEDS ORDERED: Albuterol 0.083% 2.5 MG/3 ML Neb Soln NEB ONE (14:34)
[2019-10-07] MEDS ORDERED: Sodium Chloride 0.9% 250 ML IV SCH (14:45)
== END 2019-10-07 15:00 ==
LOC: DL.ED 13:03
DX: I48.92 Unspecified atrial flutter (principal); E87.5 Hyperkalemia; I11.0 Hypertensive heart disease with heart failure; I50.812 Chronic right heart failure; I25.10 Atherosclerotic heart disease of native coronary artery without angina pectoris; I48.91 Unspecified atrial fibrillation; K21.9 Gastro-esophageal reflux disease without esophagitis; E11.9 Type 2 diabetes mellitus without complications; Z88.8 Allergy status to other drugs, medicaments and biological substances; Z95.5 Presence of coronary angioplasty implant and graft; Z79.01 Long term (current) use of anticoagulants; Z79.899 Other long term (current) drug therapy; Z79.82 Long term (current) use of aspirin
CPT/HCPCS: 36415; 80053; 83880; 84484; 85027; 93005; 94762; 96361; 96365; 96368; 99285; J1815; J2543; J3370; J7030; J7050; J7060; 99284